=== PATIENT | female | born 1955 | race Caucasian/White ===

== ENCOUNTER 2021-02-07 11:31 | Outpatient (REF) | payer OTHER, SELFPAY ==
[2021-02-07 12:49] LABS: MANUAL DIFF FLAG NO
[2021-02-07 12:51] LABS: Basophils Percent Auto 0.5 % (0-2); Eosinophils Absolute Auto 0.1 X10*3/uL (0.0-0.4); Eosinophils Percent Auto 1.5 % (0-4); Hematocrit 39.7 % (37-47); Hemoglobin 13.7 g/dl (12.0-16.0); Imm Gran Abs Auto 0.01 X10*3/uL (0.00-0.03); Imm Gran Pct Auto 0.3 % (0.0-0.4); Lymphocytes Absolute Auto 1.4 X10*3/uL (1.2-4.9); Lymphocytes Percent Auto 37.1 % (20-40); Mean Corpuscular HGB Conc 34.5 g/dl (31.0-35.0); Mean Corpuscular Hemoglobin 33.2 pg (27.0-33.0); Mean Corpuscular Volume 96.1 fL (80-98); Mean Platelet Volume 10.8 fL (9.4-12.3); Monocytes Absolute Auto 0.3 X10*3/uL (0.1-1.2); Monocytes Percent Auto 7.7 % (2-11); Neutrophils Absolute Auto 2.1 X10*3/uL (2.0-8.3); Neutrophils Percent Auto 52.9 % (45-73); Platelet Count 185 X10*3/uL (160-400); Red Blood Count 4.13 X10*6/uL (4.20-5.50); White Blood Count 3.9 X10*3/uL (4.8-10.8)
[2021-02-07 13:40] LABS: Alanine Aminotransferase 20 U/L (0-31); Albumin Level 4.3 g/dL (3.5-5.0); Alkaline Phosphatase 72 U/L (39-117); Amylase 72 U/L (28-100); Anion Gap 11 (12-20); Aspartate Amino Transferase 28 U/L (5-31); Bilirubin Direct 0.3 mg/dL (0.0-0.5); Bilirubin Total 0.8 mg/dL (0.0-1.0); Blood Urea Nitrogen 9 mg/dL (9-16); C Reactive Protein 0.03 mg/dL (< or = 0.50); Calcium 9.2 mg/dL (8.4-10.2); Carbon Dioxide 25 mmol/L (22-29); Chloride 106 mmol/L (96-108); Estimated Glomerular Filt Rate > 60; Glucose Fasting 93 mg/dL (60-99); Lipase 29 U/L (8-78); Potassium 4.1 mmol/L (3.3-5.1); Sodium 138 mmol/L (135-145); Total Protein 6.2 g/dL (6.5-8.0)
[2021-02-07 14:19] LABS: Erythrocyte Sedimentation Rate 2 MM/HR (0-20)
[2021-02-07 18:00] LABS: Gamma Glutamyl Transpeptidase 23 U/L (7-33)
== END 2021-02-07 11:32 | disposition home or self-care (01) ==
LOC: HO.MANLDS 11:31
PROVIDERS: PCP Physician Assistant; Visit Provider Physician Assistant
DX: R10.0 Acute abdomen (principal)
CPT/HCPCS: 36415; 80053; 80076; 82150; 82248; 82977; 83690; 85025; 85652; 86140

== ENCOUNTER 2021-05-02 12:13 | Outpatient (REF) | payer OTHER, SELFPAY ==
[2021-05-02 18:41] LABS: Cholesterol 206 mg/dL; HDL Cholesterol 73 mg/dL; LDL Cholesterol Calculated 121 mg/dl; Triglycerides 62 mg/dL
[2021-05-02 18:49] LABS: Estimated Average Glucose 105 mg/dL; Hemoglobin A1c % 5.3 %
[2021-05-02 19:01] LABS: Free T4 (Free Thyroxine) 1.03 ng/dL (0.71-1.85); Thyroid Stimulating Hormone 1.22 uIU/mL (0.32-4.0)
== END 2021-05-02 12:14 | disposition home or self-care (01) ==
LOC: HO.MANLDS 12:13
PROVIDERS: PCP Physician Assistant; Visit Provider Physician Assistant
DX: Z00.00 Encounter for general adult medical examination without abnormal findings (principal)
CPT/HCPCS: 36415; 80061; 83036; 84439; 84443

== ENCOUNTER → 2021-09-23 08:47 | Outpatient (BNVA) | payer OTHER, SELFPAY | PROVIDERS: PCP Physician Assistant; Visit Provider Nurse Practitioner Family | DX: Z13.89 Encounter for screening for other disorder (principal) ==

== ENCOUNTER 2024-03-03 13:05 | Outpatient (REF) | payer OTHER, SELFPAY ==
[2024-03-03 13:18] LABS: Appearance Urine Clear; Color Urine Yellow; Glucose Urine UA Negative (Negative); Leukocyte Esterase Urine Negative (Negative); Nitrite Urine Negative (Negative); Specific Gravity - Urine <= 1.005 (1.005-1.025); Urine Blood Negative (Negative); Urine Ketones Negative (Negative); Urine Protein Negative (Neg-Trace)
[2024-03-03 13:24] LABS: Bacteria Urine None Seen (None Seen); Hyaline Casts Urine 0-2 /LPF (0-2); RBC Urine 0-2 /HPF (0-2); Squamous Epithelial Cell Urine 0-2 /HPF (0-2); WBC Urine 0-5 /HPF (0-5)
== END 2024-03-03 13:06 | disposition home or self-care (01) ==
LOC: HO.LNP 13:05
PROVIDERS: Visit Provider Physician Assistant
DX: N39.0 Urinary tract infection, site not specified (principal)
CPT/HCPCS: 81001

== ENCOUNTER 2025-03-07 12:20 | Outpatient (REF) | payer MEDICARE, OTHER, SELFPAY ==
--- OUTSIDE RECORDS SUMMARY | 2025-03-07 15:38 | XMS_ITS | Encounter Summary ---
Author Organization [facility] Address [address] [place] [address] Phone Care Team Providers Care Lockstitch Binder Name Role Phone David Seymour DO Unavailable Caro Sandoval GASTROENTEROLOGY NURSE Unavailable [phone] Renee Mercedes MD Unavailable [phone] David Seymour DO Primary Care Provider [phone] Encounter Details Date Type Department Care Team (Late st Contact Info) Description 06/14/2024 Procedure Pass [facility], [address] [address] Social History Tobacco Use Types Packs/Day Years Used Date Smoking Tobacco: Never Smokeless Tobacco: Never Alcohol Use Standard Drinks/Week Comments Not Currently 0 (1 standard drink = 0.6 oz pur e alcohol) weekly Education Answer Date Recorded Are you interested in more education? Not on mai e 09/18/2022 Are you concerned about learning? Not on file 09/18/2022 No 09/18/2022 No 09/18/2022 Digital Access Answer Date Recorded No 10/17/2022 No 10/17/2022 Reliable internet access at home? Not on file 10/17/2022 Device with a working camera? Not on file Comments No Sex and Gender Information Value Date Recorded Sex Assigned at Not on file Legal Sex Female 9:51 PM EDT Gender Identity Not on file Sexual Orientation Not on file documented as of this encounter Plan of Treatment Upcoming Encounters Date Type Department Care Team (Late st Contact Info) Description 04/30/2025 2:00 PM EST Office Visit [facility] Medical [facility] Plastic Surgery [address] [place] [address] Douglas Reyes MD [address] [place] [address] documented as of this encounter Visit Diagnoses Not on filedocumented in this encounter Care Teams Lockstitch Binder Relationship Specialty Start Date End Date David Seymour DO PCP - General Internal Medicine 04/06/17 David Seymour DO Historical LMR Provider 03/13/17 Caro Sandoval NP [address] [place] [address] Historical LMR Provider 03/13/17 Renee Mercedes MD [address] [place] [address] Historical LMR Provider 03/13/17 documented as of this encounter Additional Source Comments The information contained in this document represents components of the legal health record. It is not the complete legal health record.[facility]
--- OUTSIDE RECORDS SUMMARY | 2025-03-07 15:38 | XMS_ITS | Encounter Summary ---
Author Organization [facility] Address [address] [facility] [address] [place] [address] Phone Care Team Providers Care Lard Renderer Name Role Phone David Seymour DO Unavailable Caro Sandoval SOIL FERTILITY SPECIALIST Unavailable [phone] Mikey Leong MD Unavailable [phone] Renee Mercedes MD Unavailable [phone] Aidee Valladares SOIL FERTILITY SPECIALIST Unavailable [phone] Arnaldo Dillon MD Unavailable Anahi Persaud RD Unavailable [email or web address] Ana Cristina Parmar MD Unavailable [phone] Philip Stewart MD Unavailable [phone] David Seymour DO Primary Care Provider [phone] Encounter Details Date Type Department Care Team (Latest Contact Info) Description 06/29/2019 Transcribe Orders Virtual Department 30 [place] [address] Simin Kimble PA-C [address] [place], [place] [id number] Dyspnea, unspecified type (Primary Dx) Social History Tobacco Use Types Packs/Day Years Used Date Smoking Tobacco: Never Smokeless Tobacco: Never Alcohol Use Standard Drinks/Week Comments Yes 4 (1 standard drink = 0.6 oz pur e alcohol) weekly Comments No Sex and Gender Information Value Date Recorded Sex Assigned at Not on file Legal Sex Female 9:51 PM EDT Gender Identity Not on file Sexual Orientation Not on file documented as of this encounter Plan of Treatment Upcoming Encounters Date Type Department Care Team (Late st Contact Info) Description 04/30/2025 2:00 PM EST Office Visit [facility] Plastic Surgery [address] [place] [address] Douglas Reyes MD [address] [place] [address] [email or web address] documented as of this encounter Results * Pulmonary Function Test Reason for Exam: Dyspnea/Shortness of Breath; Type of PFT Test: Spirometry with bronchodilator, Lung Volumes, DLCO; Performing Location: [facility] (01/01/2020 1:56 PM EDT) FEV1 FVC FEV1/FVC TLC DLCO Anatomical Region Laterality Modality Other Narrative 01/01/2020 1:56 PM EDT PULMONARY FUNCTION STUDIES Full pulmonary function studies were performed on this 64 y.o. year-old female for evaluation of dyspnea. Review of the medical record reveals that the patient is a past smoker. Prior pulmonary function studies are not available for comparison. SPIROMETRY: The FEV1 is normal at 2.95 L or 133% predicted. The FVC is normal at 3.90 L or 129% predicted. The FEV1/FVC ratio is normal. After the administration of a bronchodilator agent, there is no significant change. FLOW-VOLUME LOOPS: Evaluation of the flow-volume loops reveals normal morphology of both the inspiratory and expiratory limbs with no significant difference when comparing the tracings performed pre- and post-bronchodilator. LUNG VOLUME MEASUREMENTS BY PLETHYSMOGRAPHY: The total lung capacity is normal at 4.88 L or 129% predicted. DIFFUSION CAPACITY: The diffusion capacity is elevated at 18.4 mL/mmHg sec or 142% predicted. COMPARISON TO PRIOR STUDIES: There are no prior studies for comparison. Resting oxygen saturation is 97% on room air. IMPRESSION: Normal spirometry and normal total lung capacity. There is an elevated diffusion capacity which can be seen in polycythemia, left to right shunting asthma or obesity. Clinical correlation is recommended. There are no previous PFT's for comparison. August Lamin ARROYO PFT ORDERABLES Final Result documented in this encounter Visit Diagnoses Diagnosis Dyspnea, unspecified type- Primary Dyspnea, unspecified type documented in this encounter Care Teams Lard Renderer Relationship Specialty Start Date End Date David Seymour DO PCP - General Internal Medicine 04/06/17 David Seymour DO Historical LMR Provider 03/13/17 Caro Sandoval NP [address] [place] [address] [email or web address] Historical LMR Provider 03/13/17 Mikey Leong MD [address] [place] [address] [email or web address] Historical LMR Provider 03/13/17 05/31/21 Renee Mercedes MD [address] [place] [address] [address] [place] [address] Historical LMR Provider 03/13/17 Aidee Valladares SOIL FERTILITY SPECIALIST [address] [place] [address] [email or web address] Historical LMR Provider 03/13/17 2 Arnaldo Dillon MD [address] [facility], 2nd [place] [address] Historical LMR Provider 03/13/17 05/31/21 Anahi Persaud, RDCS [email or web address] Historical LMR Provider 03/13/17 05/31/21 Ana Cristina Parmar MD [address] [place] [phone] Historical LMR Provider 03/13/17 2 Philip Stewart MD [address] [place] [address] Historical LMR Provider 03/13/17 2 documented as of this encounter Additional Source Comments The information contained in this document represents components of the legal health record. It is not the complete legal health record.[facility]
--- OUTSIDE RECORDS SUMMARY | 2025-03-07 15:38 | XMS_ITS | Encounter Summary ---
Author Organization [facility] Address [address] [employer] [facility] [address] [place] [address] Phone Care Team Providers Care Fisher Sponge Hooking Name Role Phone David Seymour DO Unavailable Caro Sandoval TAKE OUT WAITER/WAITRESS Unavailable [phone] Mikey Leong MD Unavailable [phone] Renee Mercedes MD Unavailable [phone] Aidee Valladares TAKE OUT WAITER/WAITRESS Unavailable Arnaldo Dillon MD Unavailable Anahi Persaud RD Unavailable [email or web address] Ana Cristina Parmar MD Unavailable [phone] Philip Stewart MD Unavailable [phone] David Seymour DO Primary Care Provider [phone] Encounter Details Date Type Department Care Team (Late st Contact Info) Description 03/21/2020 Procedure Pass [facility], [address] [address] Social History Tobacco Use Types Packs/Day Years [...] Description 04/30/2025 2:00 PM EST Office Visit [facility] Plastic Surgery [address] [place] [address] Douglas Reyes MD [address] [place] [address] [email or web address] documented as of this encounter Visit Diagnoses Not on filedocumented in this encounter Care Teams Fisher Sponge Hooking Relationship Specialty Start Date End Date David Seyomur DO PCP - General Internal Medicine 04/06/17 David Seymour DO Historical LMR Provider 03/13/17 Caro Sandoval, TAKE OUT WAITER/WAITRESS [address] [place] [address] [email or web address] Historical LMR Provider 03/13/17 Mikey Leong MD [address] [place] [address] [email or web address] Historical LMR Provider 03/13/17 05/31/21 Renee Mercedes MD [address] [place] [address] Historical LMR Provider 03/13/17 Aidee Valladares, TAKE OUT WAITER/WAITRESS [address] [place] [address] [email or web address] Historical LMR Provider 03/13/17 2 Arnaldo Dillon MD [address] [facility], [address] [place] [address] [email or web address] Historical LMR Provider 03/13/17 05/31/21 Anahi Persaud, RDCS [email or web address] Historical LMR Provider 03/13/17 05/31/21 Ana Cristina Parmar MD [address], [place] [address] Historical LMR Provider 03/13/17 2 Philip Stewart MD 61 [place] [address] Historical LMR Provider 03/13/17 2 documented as of this encounter Additional Source Comments The information contained in this document represents components of the legal health record. It is not the complete legal health record.[facility]
--- OUTSIDE RECORDS SUMMARY | 2025-03-07 15:38 | XMS_ITS | Encounter Summary ---
Author Organization [facility] Address [address] [facility] [address] [place] [address] Phone Care Team Providers Care Distribution Engineer Name Role Phone David Seymour DO Unavailable Caro Sandoval BOWSTRING MAKER Unavailable [phone] Mikey Leong MD Unavailable [phone] Renee Mercedes MD Unavailable [phone] Aidee Valladares BOWSTRING MAKER Unavailable [phone] Arnaldo Dillon MD Unavailable [phone] Unavailable [email or web address] Ana Cristina Parmar MD Unavailable [phone] Philip Stewart MD Unavailable [phone] David Seymour DO Primary Care Provider [phone] Encounter Details Date Type Department Care Team (Latest Contact Info) Description 06/29/2019 Transcribe Orders Virtual Department 30 [place] [address] Simin Kimble PA-C [address] [place], [place] [phone] Dyspnea, unspecified type (Primary Dx) Social History [...] Description 04/30/2025 2:00 PM EST Office Visit [facility] Plastic Surgery [address] [place] [address] Douglas Reyes MD [address] [place] [address], [address] [address] documented as of this encounter Results * XR CHEST PA AND LATERAL 2 VIEWS (06/29/2019 4:50 PM EST) Anatomical Region Laterality Modality Chest Radiographic Luz ging 06/29/2019 4:54 PM EST Impressions 06/29/2019 4:56 PM EST No acute cardiopulmonary process. POS [id number] Narrative 06/29/2019 4:56 PM EST XR CHEST PA AND LATERAL 2 VIEWS HISTORY: N/A no indication applies (use free text below) DYSPNEA COMPARISON: None FINDINGS: Lines and Tubes: None. Heart and mediastinum:The cardiac silhouette is normal in size. No mediastinal or hilar enlargement. Lungs and Pleural: The lungs are clear. No pneumothorax or pleural effusion. Bones and Soft Tissues: No acute abnormality. Procedure Note Shamir Emery MD - 06/29/2019 XR CHEST PA AND LATERAL 2 VIEWS HISTORY: N/A no indication applies (use free text below) DYSPNEA COMPARISON: None FINDINGS: Lines and Tubes: None. Heart and mediastinum:The cardiac silhouette is normal in size. Nomediastinal or hilar enlargement. Lungs and Pleural: The lungs are clear. No pneumothorax or pleuraleffusion. Bones and Soft Tissues: No acute abnormality. IMPRESSION: No acute cardiopulmonary process. POS [id number] Simin Lamin ARROYO IMG XR CHEST Final Result documented in this encounter Visit Diagnoses Diagnosis Dyspnea, unspecified type- Primary Dyspnea, unspecified type documented in this encounter Care Teams Distribution Engineer Relationship Specialty Start Date End Date Jose LuisDavid [email or web address] PCP - General Internal Medicine 04/06/17 David Seymour DO [email or web address] Historical LMR Provider 03/13/17 Caro Sandoval, BOWSTRING MAKER [address] [place] [address] [email or web address] Historical LMR Provider 03/13/17 Mikey Leong MD [address] [place] [address] [email or web address] Historical LMR Provider 03/13/17 05/31/21 Renee Mercedes MD [address] [place] [address] [email or web address] Historical LMR Provider 03/13/17 Aidee Valladares, BOWSTRING MAKER [address] [place] [address] [email or web address] Historical LMR Provider 03/13/17 2 Arnaldo Dillon MD [address] [place] [address], [address] [place] [address] [email or web address] Historical LMR Provider 03/13/17 05/31/21 Anahi Persaud, RDCS [email or web address] Historical LMR Provider 03/13/17 05/31/21 Ana Cristina Parmar MD [address] [place] [address] Historical LMR Provider 03/13/17 2 Philip Stewart MD [address] [place] [address] Historical LMR Provider 03/13/17 2 documented as of this encounter Additional Source Comments The information contained in this document represents components of the legal health record. It is not the complete legal health record.[facility]
--- OUTSIDE RECORDS SUMMARY | 2025-03-07 15:39 | XMS_ITS | Encounter Summary ---
Author Organization [facility] Address [address] [place] [address] Phone Care Team Providers Care Latin Professor Name Role Phone David Seymour DO Unavailable Caro Sandoval PROGRAMMER ENGINEERING AND SCIENTIFIC Unavailable [phone] Renee Mercedes MD Unavailable [phone] David Seymour DO Primary Care Provider [phone] Encounter Details Date Type Department Care Team (Late st Contact Info) Description 06/09/2023 Procedure Pass [facility], [address] [address] Social History Tobacco Use Types Packs/Day Years [...] Description 04/30/2025 2:00 PM EST Office Visit [facility] Plastic Surgery [address] [place] [address] Douglas Reyes MD [address] [place] [address] documented as of this encounter Visit Diagnoses Not on filedocumented in this encounter Care Teams Latin Professor Relationship Specialty Start Date End Date David Seymour DO PCP - General Internal Medicine 04/06/17 David Seymour DO Historical LMR Provider 03/13/17 Caro Sandoval NP [address] [place] [address] Historical LMR Provider 03/13/17 Renee Mercedes MD [address] [place] [address] Historical LMR Provider 03/13/17 documented as of this encounter Additional Source Comments The information contained in this document represents components of the legal health record. It is not the complete legal health record.[facility]
--- OUTSIDE RECORDS SUMMARY | 2025-03-07 15:39 | XMS_ITS | Encounter Summary ---
Author Organization [facility] Address [address] [place] [address] Phone Care Team Providers Care Bag Sealer Name Role Phone David Seymour DO Unavailable Caro Sandoval DATAPOWER CONSULTANT Unavailable [phone] Renee Mercedes MD Unavailable [phone] David Seymour DO Primary Care Provider [phone] Reason for Referral * MRI/CAT Scan - Closed Specialty Diagnoses / Procedures Referred By Contac t Referred To Contact Radiology Diagnoses Right knee pain, unspecified chronicity Procedures MRI Knee (Right) CHG MRI LOWER EXTREM JT, W/O CONTRAST Joana Bradshaw PA [address] [facility] [place] [address] [place] [address] Phone: tel: fax: Referral ID Status Reason Start Date Expiration Date Visits Re quested Visits Authorized [id number] Closed 03/08/2024 05/07/2024 1 1 Encounter Details Date Type Department Care Team (Latest Contact Info) Description 03/10/2024 Transcribe Orders Virtual Department [address] [place] [address] Joana Bradshaw PA [address] [facility] [place] [address] [place] [address] Right knee pain, unspecified chronicity (Primary Dx) Social History Tobacco Use Types [...] Description 04/30/2025 2:00 PM EST Office Visit [facility] Plastic Surgery [address] [place] [address] Douglas Reyes MD [address] [place] [address] [email or web address] documented as of this encounter Results * MRI KNEE WITHOUT CONTRAST (RIGHT) (04/23/2024 10:41 AM EST) Anatomical Region Laterality Modality Knee Right Magnetic Resonan ce 04/24/2024 3:09 PM EST Impressions 04/24/2024 3:12 PM EST 1. Mild osteoarthritis, including mild patellofemoral chondromalacia, most notable within the lower central trochlea with mild subchondral marrow edema. 2. No evidence of acute fracture or surfacing meniscal tear. 3. ACL grossly intact but with a small adjacent para cruciate ganglion cyst. Narrative 04/24/2024 3:12 PM EST MRI KNEE WITHOUT CONTRAST (RIGHT) Referring clinician's provided indication for this examination in Epic: Outside Radiology Order; right knee pain HISTORY: Right knee pain. COMPARISONS: None. TECHNIQUE: Multiplanar, multisequence imaging was performed through the right knee, without IV or intra-articular gadolinium. FINDINGS: LIGAMENTS: ACL grossly intact but there is mild intrasubstance signal abnormality and a small adjacent pericruciate ganglion cyst. PCL intact. Cruciate ligaments appear intact. The extensor mechanism is intact. MENISCI: The medial meniscus is intact. The lateral meniscus is intact. BONE MARROW: No fracture. JOINT/CARTILAGE: No significant joint effusion. Mild diffuse cartilage thinning in all compartments with some mild areas of partial thickness cartilage loss including most notably within the patella and lower trochlea. PERIARTICULAR SOFT TISSUES: Otherwise unremarkable. Procedure Note Milo Mendiola MD - 04/24/2024 MRI KNEE WITHOUT CONTRAST (RIGHT) Referring clinician's provided indication for this examination in Epic:Outside Radiology Order; right knee pain HISTORY: Right knee pain. COMPARISONS: None. TECHNIQUE: Multiplanar, multisequence imaging was performed through theright knee, without IV or intra-articular gadolinium. FINDINGS: LIGAMENTS: ACL grossly intact but there is mild intrasubstance signalabnormality and a small adjacent pericruciate ganglion cyst. PCL intact.Cruciate ligaments appear intact. The extensor mechanism is intact. MENISCI: The medial meniscus is intact. The lateral meniscus is intact. BONE MARROW: No fracture. JOINT/CARTILAGE: No significant joint effusion. Mild diffuse cartilagethinning in all compartments with some mild areas of partial thicknesscartilage loss including most notably within the patella and lowertrochlea. PERIARTICULAR SOFT TISSUES: Otherwise unremarkable. IMPRESSION: 1. Mild osteoarthritis, including mild patellofemoral chondromalacia,most notable within the lower central trochlea with mild subchondralmarrow edema. 2. No evidence of acute fracture or surfacing meniscal tear. 3. ACL grossly intact but with a small adjacent para cruciate ganglioncyst. Joana YAP IMG MR EXTREMITY Final Resu lt documented in this encounter Visit Diagnoses Diagnosis Right knee pain, unspecified chronicity- Primary Right knee pain, unspecified chronicity documented in this encounter Care Teams Bag Sealer Relationship Specialty Start Date End Date David Seymour DO PCP - General Internal Medicine 04/06/17 David Seymour DO Historical LMR Provider 03/13/17 Caro Sandoval NP [address] [place] [address] [email or web address] Historical LMR Provider 03/13/17 Renee Mercedes MD [address] [place] [address] [email or web address] Historical LMR Provider 03/13/17 documented as of this encounter Additional Source Comments The information contained in this document represents components of the legal health record. It is not the complete legal health record.[facility]
--- OUTSIDE RECORDS SUMMARY | 2025-03-07 15:39 | XMS_ITS | Encounter Summary ---
Author Organization [facility] Address [address] [address] Phone Care Team Providers Care Bed Rubber Name Role Phone David Seymour DO Unavailable Caro Sandoval LANDMAN Unavailable [phone] Mikey Leong MD Unavailable [phone] Renee Mercedes MD Unavailable [phone] Aidee Valladares LANDMAN Unavailable Arnaldo Dillon MD Unavailable Anahi Persaud RDCS Unavailable [email or web address] Ana Cristina Parmar MD Unavailable [phone] Philip Stewart MD Unavailable [phone] David Seymour DO Primary Care Provider [phone] Encounter Details Date Type Department Care Team (Late st Contact Info) Description 04/06/2019 Ancillary Orders Virtual Department [address] [place] [address] David Seymour DO [address] [place] [address] [email or web address] Breast screening Social History Tobacco Use Types Packs/Day Years [...] Description 04/30/2025 2:00 PM EST Office Visit [facility] Plastic Surgery [address] [place] [address] [place] Reyes MD [address] [place] [address] documented as of this encounter Results * BI MAMMOGRAM SCREENING WITH TOMOSYNTHESIS WITH CAD (BILATERAL) (05/19/2019 7:40 AM EST) Anatomical Region Laterality Modality Breast Left, Breast Right, Breast Bilateral Bila teral Mammography 05/19/2019 8:18 AM EST Impressions 05/19/2019 8:20 AM EST No mammographic evidence of malignancy. BI-RADS CATEGORY: 1 - Negative. DENSITY: There are scattered fibroglandular densities. POS - [id number] Narrative 05/19/2019 8:20 AM EST Standard digital full-field 2-D C view and two-plane tomographic imaging was performed and compared with multiple prior studies, most recently 05/18/2018, with utilization of computer-aided detection. The breasts are composed of scattered fibroglandular densities. The stromal markings are essentially unchanged in overall appearance and distribution. No dominant spiculated mass, suspicious clustered microcalcifications, or focal zone of pathologic skin thickening or retraction are noted to have arisen in the interim. Procedure Note Jacob Peters MD - 05/19/2019 Standard digital full-field 2-D C view and two-plane tomographic imagingwas performed and compared with multiple prior studies, most [email or web address]/26/2018, with utilization of computer-aided detection. The breasts are composed of scattered fibroglandular densities. Thestromal markings are essentially unchanged in overall appearance anddistribution. No dominant spiculated mass, suspicious clusteredmicrocalcifications, or focal zone of pathologic skin thickening orretraction are noted to have arisen in the interim. IMPRESSION: No mammographic evidence of malignancy. BI-RADS CATEGORY: 1 - Negative. DENSITY: There are scattered fibroglandular densities. POS - [id number] us David Seymour DO IMG MG EXAMS Final Result documented in this encounter Visit Diagnoses Diagnosis Breast screening Breast screening, unspecified Breast screening Breast screening, unspecified documented in this encounter Care Teams Bed Rubber Relationship Specialty Start Date End Date David Seymour DO [email or web address] PCP - General Internal Medicine 04/06/17 David Seymour DO Historical LMR Provider 03/13/17 Caro Sandoval LANDMAN [address] [place] [address] [email or web address] Historical LMR Provider 03/13/17 Mikey Leong MD [address] [place] [address] [email or web address] Historical LMR Provider 03/13/17 05/31/21 Renee Mercedes MD [address] [place] [email or web address] Historical LMR Provider 03/13/17 Aidee Valladares LANDMAN [address] [place] [address] [email or web address] Historical LMR Provider 03/13/17 2 Arnaldo Dillon MD [address] [facility], [address] [place] [address] [email or web address] Historical LMR Provider 03/13/17 05/31/21 Anahi Persaud, RDCS [email or web address] Historical LMR Provider 03/13/17 05/31/21 Ana Cristina Parmar MD [address] [address] Historical LMR Provider 03/13/17 2 Philip Stewart MD [address] [place] [address] Historical LMR Provider 03/13/17 2 documented as of this encounter Additional Source Comments The information contained in this document represents components of the legal health record. It is not the complete legal health record.[facility]
--- OUTSIDE RECORDS SUMMARY | 2025-03-07 15:39 | XMS_ITS | Encounter Summary ---
Author Organization [facility] Address [address] [place] [address] Phone Care Team Providers Care Silverware Buffing Machine Operator Name Role Phone David Seymour DO Unavailable Caro Sandoval PACE ANALYST Unavailable [phone] Renee Mercedes MD Unavailable [phone] David Seymour DO Primary Care Provider [phone] Encounter Details Date Type Department Care Team (Late st Contact Info) Description 03/07/2024 Procedure Pass [facility], [address] [address] Social History Tobacco Use Types Packs/Day Years [...] Description 04/30/2025 2:00 PM EST Office Visit [facility] Plastic Surgery [address] [place] [address] [place] Reyes MD [address] [place] [address] documented as of this encounter Visit Diagnoses Not on filedocumented in this encounter Care Teams Silverware Buffing Machine Operator Relationship Specialty Start Date End Date David Seymour DO PCP - General Internal Medicine 04/06/17 David Seymour DO Historical LMR Provider 03/13/17 Caro Sandoval NP [address] [place] [address] Historical LMR Provider 03/13/17 Renee Mercedes MD [address] [place] [email or web address] Historical LMR Provider 03/13/17 documented as of this encounter Additional Source Comments The information contained in this document represents components of the legal health record. It is not the complete legal health record.[facility]
--- OUTSIDE RECORDS SUMMARY | 2025-03-07 15:39 | XMS_ITS | Encounter Summary ---
Author Organization [facility] Address [address] [place] [address] Phone Care Team Providers Care Business Functional Analyst Name Role Phone Lion David Chung DO Unavailable Caro Sandoval POND SCALER Unavailable [phone] Renee Mercedes MD Unavailable [phone] David Seymour DO Primary Care Provider [phone] Encounter Details Date Type Department Care Team (Latest Contact Info) Description 11/13/2024 Transcribe Orders [facility] [address] [address] Catherine Burt PA 10 [place] [address] Abdominal pain, unspecified abdominal location (Primary Dx) Social History Tobacco Use Types [...] Description 04/30/2025 2:00 PM EST Office Visit [facility] Plastic Surgery [address] [place] [address] [place] Reyes MD [address] [place] [address] [email or web address] documented as of this encounter Results * Comprehensive metabolic panel (11/13/2024 3:47 PM EDT) SODIUM 138 133 - 146 mmol/L [facility] POTASSIUM 4.6 3.3 - 5.1 mmol/L [facility] CHLORIDE 100 96 - 108 mmol/L [facility] CO2 26 21 - 35 mmol/L [facility] BUN 17 6 - 19 mg/dL [facility] CREATININE 0.80 0.5 - 1.5 mg/dL [facility] GLUCOSE 97 70 - 99 mg/dL [facility] ALBUMIN 4.5 3.9 - 4.8 g/dL [facility] TOTAL PROTEIN 7.0 6.5 - 8.0 g/dL [facility] CALCIUM 10.1 8.4 - 10.3 mg/dL [facility] ALKALINE PHOSPHATASE 79 39 - 117 U/L [facility] TOTAL BILIRUBIN 0.6 0.0 - 1.2 mg/dL [facility] AST 31 0 - 37 U/L [facility] ALT 21 0 - 40 U/L [facility] GLOBULIN 2.5 1 - 4.8 g/dL [facility] EGFR 81 >59 mL/min/1.7 3m2 [facility] Comment:Estimated glomerular filtration rate calculated using the CKD-EPI refit equation. ANION GAP 17 10 - 20 mmol/L [facility] Blood 11/13/2024 3:47 PM EDT 11/13/2024 3:50 PM EDT us Catherine YAP LAB BLOOD ORDERABLES Final Result [facility] [address] [place] [address] documented in this encounter Visit Diagnoses Diagnosis Abdominal pain, unspecified abdominal location- Primary documented in this encounter Care Teams Business Functional Analyst Relationship Specialty Start Date End Date David Seymour DO PCP - General Internal Medicine 04/06/17 David Seymour DO Historical LMR Provider 03/13/17 Caro Sandoval NP [address] [place] [address] Historical LMR Provider 03/13/17 Renee Mercedes MD [address] [place] [address] Historical LMR Provider 03/13/17 documented as of this encounter Additional Source Comments The information contained in this document represents components of the legal health record. It is not the complete legal health record.[facility]
--- OUTSIDE RECORDS SUMMARY | 2025-03-07 15:39 | XMS_ITS | Encounter Summary ---
Author Organization [facility] Address [address] [facility] [address] [place] [address] Phone Care Team Providers Care Cafeteria Counter Attendant Name Role Phone David Seymour DO Unavailable Caro Sandoval BICYCLE SERVICE TECHNICIAN Unavailable [phone] Mikey Leong MD Unavailable [phone] Renee Mercedes MD Unavailable Aidee Valladares BICYCLE SERVICE TECHNICIAN Unavailable [phone] Arnaldo Dillon MD Unavailable [phone] Anahi Persaud RDCS Unavailable [email or web address] Ana Cristina Parmar MD Unavailable [phone] Philip Stewart MD Unavailable [phone] David Seymour DO Primary Care Provider [phone] Encounter Details Date Type Department Care Team (Late st Contact Info) Description 04/06/2017 Ancillary Orders [facility] [address] [place], [place] [phone] Renee Mercedes MD 22 [facility], [address] [place], [place] [phone] [email or web address] Visit for screening mammogram Social History Tobacco Use Types Packs/Day Years Used Date Smoking Tobacco: Never Assessed Comments Unknown Sex and Gender Information Value Date Recorded Sex Assigned at Not on file Legal Sex Female 9:51 PM EDT Gender Identity Not on file Sexual Orientation Not on file documented as of this encounter Plan of Treatment Upcoming Encounters Date Type Department Care Team (Late st Contact Info) Description 04/30/2025 2:00 PM EST Office Visit [facility] [address] [place] [address] [place] Reyes MD [address] [place] [address], [address] [address] [email or web address] documented as of this encounter Results * BI MAMMOGRAM SCREENING WITH TOMOSYNTHESIS WITH CAD (BILATERAL) (05/14/2017 7:41 AM EST) Anatomical Region Laterality Modality Breast Left, Breast Right, Breast Bilateral Bila teral Mammography 05/14/2017 8:09 AM EST Impressions 05/14/2017 8:11 AM EST No mammographic evidence of malignancy. BI-RADS CATEGORY: 1 - Negative. DENSITY: There are scattered fibroglandular densities. POS - [id number] Narrative 05/14/2017 8:11 AM EST Standard digital full-field 2-D C view and two-plane tomographic imaging was performed and compared with multiple prior studies, most recently 04/28/2016, with utilization of computer-aided detection. The breasts are composed of scattered fibroglandular densities. The stromal markings are essentially unchanged in overall appearance and distribution. No dominant spiculated mass, suspicious clustered microcalcifications, or focal zone of pathologic skin thickening or retraction are noted to have arisen in the interim. Procedure Note Jacob Peters MD - 05/14/2017 Standard digital full-field 2-D C view and two-plane tomographic imagingwas performed and compared with multiple prior studies, most [email or web address]/06/2016, with utilization of computer-aided detection. The breasts are composed of scattered fibroglandular densities. Thestromal markings are essentially unchanged in overall appearance anddistribution. No dominant spiculated mass, suspicious clusteredmicrocalcifications, or focal zone of pathologic skin thickening orretraction are noted to have arisen in the interim. IMPRESSION: No mammographic evidence of malignancy. BI-RADS CATEGORY: 1 - Negative. DENSITY: There are scattered fibroglandular densities. POS - [id number] us Renee Mercedes MD IMG MG EXAMS Final Result documented in this encounter Visit Diagnoses Diagnosis Visit for screening mammogram Visit for screening mammogram documented in this encounter Care Teams Cafeteria Counter Attendant Relationship Specialty Start Date End Date David Seymour DO PCP - General Internal Medicine 04/06/17 David Seymour DO Historical LMR Provider 03/13/17 Caro Sandoval NP [address] [place] [address] [email or web address] Historical LMR Provider 03/13/17 Mikey Leong MD [address] [place] [address] [email or web address] Historical LMR Provider 03/13/17 05/31/21 Renee Mercedes MD [address] [place] [address] Historical LMR Provider 03/13/17 Aidee Valladares NP [address] [place] [address] [email or web address] Historical LMR Provider 03/13/17 2 Arnaldo Dillon MD 22 [facility], [address] [place] [address] Historical LMR Provider 03/13/17 05/31/21 Anahi Persaud, RDCS Historical LMR Provider 03/13/17 05/31/21 Ana Cristina Parmar MD [address], [place] Historical LMR Provider 03/13/17 2 Philip [place] MD [address] [place] [address] Historical LMR Provider 03/13/17 2 documented as of this encounter Additional Source Comments The information contained in this document represents components of the legal health record. It is not the complete legal health record.[facility]
--- OUTSIDE RECORDS SUMMARY | 2025-03-07 15:39 | XMS_ITS | Encounter Summary ---
Author Organization [facility] Address [address] [place] [address] Phone Care Team Providers Care Shingle Packer Name Role Phone David Seymour DO Unavailable Caro Sandoval BLOCK INSPECTOR Unavailable [phone] Renee Mercedes MD Unavailable [phone] David Seymour DO Primary Care Provider [phone] Encounter Details Date Type Department Care Team (Latest Contact Info) Description 08/24/2023 Transcribe Orders [facility] Laboratory [address] 2nd [place] [address] Joana [place] PA 6 [facility] [place] [address] Routine general medical examination at a health care facility (Primary Dx) Social History Tobacco Use Types [...] Description 04/30/2025 2:00 PM EST Office Visit [facility] Plastic Surgery [address] [place] [address] [place] Reyes MD [address] [place] [address] [email or web address] documented as of this encounter Results * Free T4 (08/24/2023 7:45 AM EDT) FREE T4 1.2 0.9 - 1.7 ng/dL [facility] Blood 08/24/2023 7:45 AM EDT 08/24/2023 7:51 AM EDT us Joana YAP LAB BLOOD ORDERABLES Final Result [address] [address] * Hemoglobin A1c (08/24/2023 7:45 AM EDT) HEMOGLOBIN A1C 5.2 4.3 - 5.8 % [facility] Blood 08/24/2023 7:45 AM EDT 08/24/2023 7:51 AM EDT Joana YAP LAB BLOOD ORDERABLES Final Result [address] [address] * TSH (08/24/2023 7:45 AM EDT) TSH 1.78 0.27 - 4.20 uIU/mL [facility] Blood 08/24/2023 7:45 AM EDT 08/24/2023 7:51 AM EDT Joana YAP LAB BLOOD ORDERABLES Final Result Performing Organization Address City/[facility]/ZIP Co de Phone Number [address] [address] * 25-OH vitamin D (08/24/2023 7:45 AM EDT) 25 [place] VIT D (TOTAL) 44 30 - 60 ng/mL [facility] Blood 08/24/2023 7:45 AM EDT 08/24/2023 7:51 AM EDT Joana YAP LAB BLOOD ORDERABLES Final Result Performing Organization Address [facility] de Phone Number [address] [address] * (ABNORMAL) Lipid panel (08/24/2023 7:45 AM EDT) HDL 73 mg/dL [facility] Comment: Interpretation <40 mg/dL: Low HDL cholesterol (major risk factor for CHD) Greater than or equal to 60 mg/dL: High HDL cholesterol ( negative risk factor for CHD) HDL - cholesterol is affected by a number of factors, e.g. smoking, excerise, hormones, sex and age. CHOLESTEROL 188 0 - 240 mg/dL [facility] TRIGLYCERIDES 66 30 - 160 mg/dL [facility] LDL 102 50 - 129 mg/dL [facility] Comment: LDL levels in terms of risk for coronary heart disease: <100 mg/dL: Optimal 100-129 mg/dL: Near or above optimal 130-159 mg/dL: Borderline high 160-189 mg/dL: High >190 mg/dL: Very High CARDIAC RISK RATIO 2.6(L) 3.3 - 4.4 C [facility] Blood 08/24/2023 7:45 AM EDT 08/24/2023 7:51 AM EDT Joana YAP LAB BLOOD ORDERABLES Final Result [facility] [address] [place] [address] * (ABNORMAL) CBC and differential (08/24/2023 7:45 AM EDT) WBC 2.44(L) 4.00 - 11.00 K/uL [facility] RBC 4.42 3.72 - 5.30 M/uL [facility] HGB 14.4 11.4 - 15.9 g/dL [facility] HCT 42.8 34.2 - 46.8 % [facility] PLT 202 140 - 430 K/uL [facility] MCV 96.8 78.0 - 97.0 fL [facility] MCH 32.6 25.0 - 33.0 pg [facility] MCHC 33.6 32.0 - 36.0 g/dL [facility] RDW 12.0 11.0 - 16.0 % [facility] MPV 10.6 8.4 - 12.8 fl [facility] DIFF METHOD Auto [facility] NEUTS 45.5 43.0 - 75.0 % [facility] LYMPHS 41.4 18.2 - 47.4 % [facility] MONOS 9.4 4.00 - 11.00 % [facility] EOS 2.5 0.0 - 8.0 % [facility] BASOS 1.2 0.0 - 2.0 % [facility] Granulocytes, immature (%) 0.0 0.0 - 0.9 % [facility] ABSOLUTE NEUTS 1.11(L) 1.80 - 7.70 K/uL [facility] ABSOLUTE LYMPHS 1.01 1.00 - 3.10 K/uL [facility] ABSOLUTE MONOS 0.23 0.20 - 0.80 K/uL [facility] ABSOLUTE EOS 0.06 0.00 - 0.80 K/uL [facility] ABSOLUTE BASOS 0.03 0.00 - 0.09 K/uL [facility] Granulocytes, immature 0.00 0.00 - 0.05 K/uL [facility] Blood 08/24/2023 7:45 AM EDT 08/24/2023 7:51 AM EDT us Joana YAP LAB BLOOD ORDERABLES Final Result [address] [address] * (ABNORMAL) Comprehensive metabolic panel (08/24/2023 7:45 AM EDT) SODIUM 139 133 - 146 mmol/L [facility] POTASSIUM 4.3 3.3 - 5.1 mmol/L [facility] CHLORIDE 103 96 - 108 mmol/L [facility] CO2 26 21 - 35 mmol/L [facility] BUN 18 6 - 19 mg/dL [facility] CREATININE 0.80 0.5 - 1.5 mg/dL [facility] GLUCOSE 95 70 - 99 mg/dL [facility] ALBUMIN 4.5 3.9 - 4.8 g/dL [facility] TOTAL PROTEIN 6.7 6.5 - 8.0 g/dL [facility] CALCIUM 9.7 8.4 - 10.3 mg/dL [facility] ALKALINE PHOSPHATASE 76 39 - 117 U/L [facility] TOTAL BILIRUBIN 0.6 0.0 - 1.2 mg/dL [facility] AST 48(H) 0 - 37 U/L [facility] ALT 74(H) 0 - 40 U/L [facility] GLOBULIN 2.2 1 - 4.8 g/dL [facility] EGFR 82 >59 mL/min/1.7 3m2 [facility] Comment:Estimated glomerular filtration rate calculated using the CKD-EPI refit equation. ANION GAP 14 10 - 20 mmol/L [facility] Blood 08/24/2023 7:45 AM EDT 08/24/2023 7:51 AM EDT us Joana YAP LAB BLOOD ORDERABLES Final Result Performing Organization Address City/[facility]/ZIP Co de Phone Number [address] [address] documented in this encounter Visit Diagnoses Diagnosis Routine general medical examination at a health care facility- Primary documented in this encounter Care Teams Shingle Packer Relationship Specialty Start Date End Date David Seymour PCP - General Internal Medicine 04/06/17 Lion David ChungDO Historical LMR Provider 03/13/17 Caro Sandoval NP [address] [place] [address] Historical LMR Provider 03/13/17 Renee Mercedes MD [address] [place] [address] Historical LMR Provider 03/13/17 documented as of this encounter Additional Source Comments The information contained in this document represents components of the legal health record. It is not the complete legal health record.[facility]
--- OUTSIDE RECORDS SUMMARY | 2025-03-07 15:39 | XMS_ITS | Encounter Summary ---
Author Organization [facility] Address [address] [place] [address] Phone Care Team Providers Care Taste Tester Name Role Phone David Seymour DO Unavailable Caro Sandoval AUTOMOTIVE SALES EXECUTIVE Unavailable [phone] Renee Mercedes MD Unavailable [phone] David Seymour DO Primary Care Provider [phone] Encounter Details Date Type Department Care Team (Latest Contact Info) Description 09/03/2023 Transcribe Orders Virtual Department [address] [place] [address] Joana Bradshaw PA [address] [place] [address] [place] [address] Elevated LFTs (Primary Dx) Social History Tobacco Use Types [...] 04/30/2025 2:00 PM EST Office Visit [facility] [address] [place] [address] Douglas Reyes MD [address] [place] [address], [address] [address] [email or web address] documented as of this encounter Results * US ABDOMEN LIMITED RIGHT UPPER QUADRANT (09/10/2023 8:24 AM EDT) Anatomical Region Laterality Modality Abdomen Ultrasound 09/10/2023 11:4 5 AM EDT Impressions 09/10/2023 4:56 PM EDT 1. No acute abnormality demonstrated sonographically to explain etiology of patient's symptoms. 2. Subtle 1.1 cm hypoechoic lesion at the hepatic dome on the right, incompletely characterized sonographically and not clearly demonstrated on the prior study. MRI recommended for further evaluation. Narrative 09/10/2023 4:56 PM EDT US ABDOMEN LIMITED RIGHT UPPER QUADRANT Referring clinician's provided indication for this examination in [facility] [place] [facility]: Outside Radiology Order; elevated lft's TECHNIQUE: US Abdominal limited right upper quadrant. COMPARISON: Sonography 10/09/2022 FINDINGS: Liver: Hepatic echogenicity is within normal limits. There is a subtle 1.1 x 1.0 cm hypoechoic lesion at the hepatic dome on the right, incompletely characterized sonographically. Main Portal Vein: Patent with normal direction of flow. Gallbladder: No gallstones or gallbladder wall thickening. Martini's Sign: Negative. Biliary: No intrahepatic or extrahepatic biliary ductal dilatation. The common bile duct measures 4 mm. Right Kidney: No stones or hydronephrosis. Procedure Note Shira Smith MD - 09/10/2023 US ABDOMEN LIMITED RIGHT UPPER QUADRANT Referring clinician's provided indication for this examination in [facility] [place] [facility]:Outside Radiology Order; elevated lft's TECHNIQUE: US Abdominal limited right upper quadrant. COMPARISON: Sonography 10/09/2022 FINDINGS: Liver: Hepatic echogenicity is within normal limits. There is a subtle 1.1x 1.0 cm hypoechoic lesion at the hepatic dome on the right, incompletelycharacterized sonographically. Main Portal Vein: Patent with normal direction of flow. Gallbladder: No gallstones or gallbladder wall thickening. Amrtini's Sign: Negative. Biliary: No intrahepatic or extrahepatic biliary ductal dilatation. The common bile duct measures 4 mm. Right Kidney: No stones or hydronephrosis. IMPRESSION: 1. No acute abnormality demonstrated sonographically to explain etiologyof patient's symptoms. 2. Subtle 1.1 cm hypoechoic lesion at the hepatic dome on the right,incompletely characterized sonographically and not clearly demonstrated onthe prior study. MRI recommended for further evaluation. us Joana Vazquez YAP IMG US ABDOMEN Final Resul t documented in this encounter Visit Diagnoses Diagnosis Elevated LFTs- Primary Other abnormal blood chemistry Elevated LFTs Other abnormal blood chemistry documented in this encounter Care Teams Taste Tester Relationship Specialty Start Date End Date David Seymour DO PCP - General Internal Medicine 04/06/17 David Seymour DO Historical LMR Provider 03/13/17 Caro Sandoval NP [address] [place] [address] Historical LMR Provider 03/13/17 Renee Mercedes MD [address] [place] [address], [facility] [address] [place] [address] Historical LMR Provider 03/13/17 documented as of this encounter Additional Source Comments The information contained in this document represents components of the legal health record. It is not the complete legal health record.[facility]
--- OUTSIDE RECORDS SUMMARY | 2025-03-07 15:39 | XMS_ITS | Encounter Summary ---
Author Organization [facility] Address [address] [place] [address] Phone Care Team Providers Care Arrow Point Attacher Name Role Phone Lion David Chung DO Unavailable Caro Sandoval RAYON WINDER Unavailable [phone] Renee Mercedes MD Unavailable [phone] David Seymour DO Primary Care Provider [phone] Encounter Details Date Type Department Care Team (Latest Contact Info) Description 07/20/2024 Transcribe Orders [facility] [address] [place] [address] Sudeep Cormier MD [address] [facility] 2 [place] [address] [email or web address] Abdominal pain, unspecified abdominal location (Primary Dx); Abnormal LFTs; Abnormal liver scan Social History Tobacco Use Types Packs/Day Years [...] Description 04/30/2025 2:00 PM EST Office Visit [facility]astic Surgery [address] [place] [address] Douglas Reyes MD [address] [place] [address] [email or web address] documented as of this encounter Results * Hepatitis C antibody, qualitative (07/20/2024 10:56 AM EST) HCV NON-REACTIV E NON-REACTI VE [facility] Blood 07/20/2024 10:5 6 AM EST 07/20/2024 11:01 AM EST us Sudeep Cormier MD LAB BLOOD ORDERABLES Final R esult [address] [address] * Hepatitis B surface antigen (07/20/2024 10:56 AM EST) HBV SURFACE ANTIGEN NON-REACTI VE NON-REACTI VE [facility] Blood 07/20/2024 10:5 6 AM EST 07/20/2024 11:01 AM EST us Sudeep Cormier MD LAB BLOOD ORDERABLES Final R esult Performing Organization Address City/[facility]/ZIP Co de Phone Number [address] [address] * Hepatitis B surface antibody (07/20/2024 10:56 AM EST) HBV SURFACE ANTIBODY Negative [facility] Comment: Unvaccinated: Negative Vaccinated: Positive Blood 07/20/2024 10:5 6 AM EST 07/20/2024 11:01 AM EST us Sudeep Cormier MD LAB BLOOD ORDERABLES Final R esult Performing Organization Address [facility] Co de Phone Number [address] [address] * Hepatitis B core antibody, total (07/20/2024 10:56 AM EST) HEP B CORE AB, TOT NON-REACTI VE NON-REACTI VE [facility] Blood 07/20/2024 10:5 6 AM EST 07/20/2024 11:01 AM EST us Sudeep Cormier MD LAB BLOOD ORDERABLES Final R esult Performing Organization Address [facility] Co de Phone Number [address] [address] * HEPATITIS A ANTIBODY, TOTAL (07/20/2024 10:56 AM EST) HAV TOTAL AB NON-REACTI VE NON-REACTI VE [facility] Blood 07/20/2024 10:5 6 AM EST 07/20/2024 11:01 AM EST us Sudeep Cormier MD LAB BLOOD ORDERABLES Final R esult Performing Organization Address City/[facility] Co de Phone Number [address] [address] * CPK (creatine kinase) (07/20/2024 10:56 AM EST) CREATINE KINASE 109 21 - 215 U/L [facility] Blood 07/20/2024 10:5 6 AM EST 07/20/2024 11:01 AM EST Sudeep Cormier MD LAB BLOOD ORDERABLES Final R esult Performing Organization Address City/[facility] Co de Phone Number [address] [address] * Comprehensive metabolic panel (07/20/2024 10:56 AM EST) SODIUM 137 133 - 146 mmol/L [facility] POTASSIUM 4.3 3.3 - 5.1 mmol/L [facility] CHLORIDE 101 96 - 108 mmol/L [facility] CO2 25 21 - 35 mmol/L [facility] BUN 15 6 - 19 mg/dL [facility] CREATININE 0.80 0.5 - 1.5 mg/dL [facility] GLUCOSE 96 70 - 99 mg/dL [facility] ALBUMIN 4.0 3.9 - 4.8 g/dL [facility] TOTAL PROTEIN 6.6 6.5 - 8.0 g/dL [facility] CALCIUM 9.3 8.4 - 10.3 mg/dL [facility] ALKALINE PHOSPHATASE 100 39 - 117 U/L [facility] TOTAL BILIRUBIN 0.3 0.0 - 1.2 mg/dL [facility] AST 33 0 - 37 U/L [facility] ALT 27 0 - 40 U/L [facility] GLOBULIN 2.6 1 - 4.8 g/dL [facility] EGFR 81 >59 mL/min/1.[address] [facility] Comment:Estimated glomerular filtration rate calculated using the CKD-EPI refit equation. ANION GAP 15 10 - 20 mmol/L [facility] Blood 07/20/2024 10:5 6 AM EST 07/20/2024 11:01 AM EST us Sudeep Cormier MD LAB BLOOD ORDERABLES Final R esult [address] [address] * Celiac Screening Test Panel (07/20/2024 10:56 AM EST) IgA 93 61 - 356 mg/dL [facility] Celiac Disease Panel/Interpret ation SEE NOTE [facility] Comment: (NOTE) See Comment: Negative serology. Celiac disease unlikely. However, approximately 10% of patients with celiac disease are seronegative. Also, patients who are already adhering to a gluten-free diet may be seronegative. If celiac disease is highly clinically suspected, consider HLA-DQ typing. Blood 07/20/2024 10:5 6 AM EST 07/20/2024 11:01 AM EST Sudeep Cormier MD LAB BLOOD ORDERABLES Final R esult Performing Organization Address City/[facility]/ZIP Co de Phone Number [facility] [address] [place] [address] * (ABNORMAL) CBC (07/20/2024 10:56 AM EST) WBC 4.02 4.00 - 11.00 K/uL [facility] RBC 3.98(L) 4.00 - 5.20 M/uL [facility] HGB 13.4 12.0 - 16.0 g/dL [facility] HCT 38.4 36.0 - 46.0 % [facility] PLT 249 150 - 450 K/uL [facility] MCV 96.5 80.0 - 100.[address] [facility] MCH 33.7(H) 27.0 - 31.[address] [facility] MCHC 34.9 32.0 - 36.0 g/dL [facility] RDW 12.3 11.5 - 14.5 % [facility] MPV 11.0 8.4 - 12.[address] [facility] NRBC 0.00 0.00 /[address] [facility] ABSOLUTE NRBC 0.00 0.00 K/uL [facility] Blood 07/20/2024 10:5 6 AM EST 07/20/2024 11:01 AM EST us Sudeep Cormier MD LAB BLOOD ORDERABLES Final R esult Performing Organization Address City/[facility]/ZIP Co de Phone Number [facility] [address] [place] [address] * Smooth Muscle Antibody (07/20/2024 10:56 AM EST) SMOOTH MUSCLE AB POSITIVE AT 1:20 [facility] Comment: Performing Pathologist, Sunil Ortega M.D., Ph.D. [id number] Normal: Negative at 1:20 Blood 07/20/2024 10:5 6 AM EST 07/20/2024 11:01 AM EST Sudeep Cormier MD LAB BLOOD ORDERABLES Final R esult Performing Organization Address City/[facility] Co de Phone Number [address] [address] * Antinuclear antibody (JANNIE) (07/20/2024 10:56 AM EST) JANNIE SCREEN ON HEP [address] Negative [address] [facility] Blood 07/20/2024 10:5 6 AM EST 07/20/2024 11:01 AM EST Sudeep Cormier MD LAB BLOOD ORDERABLES Final R esult Performing Organization Address [facility] Co de Phone Number [address] [address] * Anti-Mitochondrial Antibody (AMA) (07/20/2024 10:56 AM EST) MITOCHONDRIAL AB NEGATIVE AT 1:20 [facility] Comment: Performing Pathologist, Sunil Ortega M.D., Ph.D. [id number] Normal: Negative at 1:20 Blood 07/20/2024 10:5 6 AM EST 07/20/2024 11:01 AM EST Sudeep Cormier MD LAB BLOOD ORDERABLES Final R esult Performing Organization Address [facility] Co de Phone Number [address] [address] * AFP (non-maternal specimens) (07/20/2024 10:56 AM EST) AFP (NON-MATERNAL) 6.4 <7.9 ng/mL [facility] Comment: Test Methodology Yany [id number] Patient results determined by assays using different manufacturers or methods may not be comparable. Blood 07/20/2024 10:5 6 AM EST 07/20/2024 11:01 AM EST us Sudeep Cormier MD LAB BLOOD ORDERABLES Final R esult [facility] [address] [place] [address] documented in this encounter Visit Diagnoses Diagnosis Abdominal pain, unspecified abdominal location- Primary Abnormal LFTs Abnormal liver scan Nonspecific abnormal results of liver function study documented in this encounter Care Teams Arrow Point Attacher Relationship Specialty Start Date End Date David Seymour DO PCP - General Internal Medicine 04/06/17 David Seymour DO Historical LMR Provider 03/13/17 Caro Sandoval NP [address] [place] [address] Historical LMR Provider 03/13/17 Renee Mercedes MD [address] [place] [address], [facility] [address] [place] [address] [email or web address] Historical LMR Provider 03/13/17 documented as of this encounter Additional Source Comments The information contained in this document represents components of the legal health record. It is not the complete legal health record.[facility]
--- OUTSIDE RECORDS SUMMARY | 2025-03-07 15:39 | XMS_ITS | Encounter Summary ---
Author Organization [facility] Address [address] [facility] [address] [place] [address] Phone Care Team Providers Care Steam Tender Name Role Phone David Seymour DO Unavailable Caro Sandoval OREMAN Unavailable [phone] Mikey Leong MD Unavailable Renee Mercedes MD Unavailable Aidee Valladares OREMAN Unavailable Arnaldo Dillon MD Unavailable [phone] Unavailable [email or web address] Ana Cristina Parmar MD Unavailable [phone] Philip Stewart MD Unavailable [phone] David Seymour DO Primary Care Provider [phone] Reason for Referral * MRI/CAT Scan - Closed Specialty Diagnoses / Procedures Referred By Contac t Referred To Contact Radiology Diagnoses Other abnormal auditory perceptions, bilateral Procedures CT Face CHG CT SCAN, FACE/JAW CONTRAST CHG CT SCAN,MAXILLOFACIAL AREA,W/O CONTRAST Joana Bradshaw PA Phone: tel: fax: Referral ID Status Reason Start Date Expiration Date Visits Re quested Visits Authorized [id number] Closed 11/27/2020 05/26/2021 1 1 Encounter Details Date Type Department Care Team (Latest Contact Info) Description 11/27/2020 Transcribe Orders Virtual Department [address] [place] [address] Joana Bradshaw PA [address] [facility] [place] [address] [place] [address] Other abnormal auditory perceptions, bilateral (Primary Dx) Social History Tobacco Use Types [...] Description 04/30/2025 2:00 PM EST Office Visit [facility] Plastic Surgery [address] [place] [address] Douglas Reyes MD [address] [place] [address], [address] [address] [email or web address] documented as of this encounter Results * CT FACE WITHOUT CONTRAST (12/19/2020 3:14 PM EDT) Anatomical Region Laterality Modality Face Computed Tomogra phy 12/19/2020 3:16 PM EDT Impressions 12/19/2020 3:21 PM EDT No findings to account for the patient's symptoms. No evidence of sinusitis or polyps. Narrative 12/19/2020 3:21 PM EDT COMPARISON: None. TECHNIQUE: CT of the facial bones without contrast. Sagittal and coronal reformats generated. Automated exposure control utilized. CT FACIAL BONES FINDINGS: Brain: Normal. Orbits: Right lens implant. Otherwise normal. Soft tissue: Unremarkable. Bones/sinuses: Mild left nasal septal deviation. Ostiomeatal unit complexes are patent. Paranasal sinuses are clear. Mastoids, middle ears and external canals are clear. No nasal polyps. No destructive or suspicious bone lesions. Procedure Note Ta Urena MD - 12/19/2020 COMPARISON: None. TECHNIQUE: CT of the facial bones without contrast. Sagittal and coronalreformats generated. Automated exposure control utilized. CT FACIAL BONES FINDINGS: Brain: Normal. Orbits: Right lens implant. Otherwise normal. Soft tissue: Unremarkable. Bones/sinuses: Mild left nasal septal deviation. Ostiomeatal unitcomplexes are patent. Paranasal sinuses are clear. Mastoids, middle earsand external canals are clear. No nasal polyps. No destructive orsuspicious bone lesions. IMPRESSION: No findings to account for the patient's symptoms. No evidence ofsinusitis or polyps. Joana YAP IM CT HEAD/NECK Final Resu lt documented in this encounter Visit Diagnoses Diagnosis Other abnormal auditory perceptions, bilateral- Primary Other abnormal auditory perceptions, bilateral documented in this encounter Care Teams Steam Tender Relationship Specialty Start Date End Date David Seymour DO PCP - General Internal Medicine 04/06/17 David Seymour DO Historical LMR Provider 03/13/17 Caro Sandoval NP [address] [place] [address] Historical LMR Provider 03/13/17 Mikey Leong MD [address] [place] [address] [email or web address] Historical LMR Provider 03/13/17 05/31/21 Renee Mercedes MD [address] [facility] [place] [address] [email or web address] Historical LMR Provider 03/13/17 Aidee Valladares OREMAN [address] [place] [address] [email or web address] Historical LMR Provider 03/13/17 2 Arnaldo Dillon MD [address] [facility] [place] [address] Historical LMR Provider 03/13/17 05/31/21 Anahi Persaud, [facility] [email or web address] Historical LMR Provider 03/13/17 05/31/21 Ana Cristina Parmar MD [address], [place] [address] Historical LMR Provider 03/13/17 2 Philip Stewart MD [address] [place] [address] Historical LMR Provider 03/13/17 2 documented as of this encounter Additional Source Comments The information contained in this document represents components of the legal health record. It is not the complete legal health record.[facility]
--- OUTSIDE RECORDS SUMMARY | 2025-03-07 15:39 | XMS_ITS | Encounter Summary ---
Author Organization [facility] Address [address] [place] [address] Phone Care Team Providers Care Etl Analyst Developer Name Role Phone David Seymour DO Unavailable Caro Sandoval CUSTOMER SERVICE TELLER Unavailable [phone] Mikey Leong MD Unavailable Renee Mercedes MD Unavailable Aidee Valladares CUSTOMER SERVICE TELLER Unavailable Arnaldo Dillon MD Unavailable [phone] Unavailable [email or web address] Ana Cristina Parmar MD Unavailable + [phone] Philip Stewart MD Unavailable [phone] David Syemour DO Primary Care Provider [phone] Reason for Referral * - Closed Specialty Diagnoses / Procedures Referred By Radha bueno Referred To Contact Diagnoses Palpitations Procedures Stress Test Exercise Joana Bradshaw PA Phone: tel: fax: Referral ID Status Reason Start Date Expiration Date Visits Re quested Visits Authorized [id number] Closed 12/19/2019 12/18/2020 1 1 * Outpatient Procedure - Closed Specialty Diagnoses / Procedures Referred By Contac t Referred To Contact Diagnoses Palpitations Procedures Adult Echo TTE Joana Bradshaw PA Phone: tel: fax: Referral ID Status Reason Start Date Expiration Date Visits Re quested Visits Authorized [id number] Closed 12/19/2019 12/18/2020 1 1 Encounter Details Date Type Department Care Team (Latest Contact Info) Description 12/19/2019 Transcribe Orders Virtual Department 30 [place] [address] Joana Bradshaw PA 6 [facility] [place] [address] [place] [address] Palpitations (Primary Dx) Social History Tobacco Use Types [...] Description 04/30/2025 2:00 PM EST Office Visit [facility] Plastic Surgery [address] [place] [address] Douglas Reyes MD [address] [place] [address] [email or web address] documented as of this encounter Results * TTE COMPREHENSIVE (01/18/2020 11:55 AM EDT) Body Surface Area 1.6 m2 Height 162 cm Weight 59 kg Systolic BP 164 mmHg Diastolic BP 72 mmHg Left Atrium Dimension Anterior-Posterior 30 15 - 40 mm Aortic Valve Peak Velocity 164.0 cm/s Aortic Valve Peak Gradient 11 mmHg Aortic Sinus Diameter 27 mm Ascending Aorta Diameter 29 mm Inferior Vena Cava Diameter 12 0.0 - 21 mm Interventricular Septum Thickness 6 mm Left Ventricle Internal Diameter End Diastole 48 37 - 52 mm Left Ventricle Internal Diameter End Systole 29 22 - 35 mm Left Ventricular Outflow Tract Diameter 20.0 mm LVOT VTI REST 250 mm Left Ventricular Outflow Tract Velocity 1.5 m/s Left Ventricular Outflow Tract Gradient at Rest 9 mmHg Left Ventricular Posterior Wall Thickness 8 mm Ejection Fraction 70 50 - 75 Percent Mitral Valve Deceleration Time 229 ms Mitral Valve A Wave Speed 36.8 cm/s Mitral Valve E Wave Speed 59.1 cm/s Right Ventricle Basal Diameter 29.4 25 - 41 mm Tricuspid Valve Peak Velocity 2.3 m/s Raw LV EF% 63 % Left Atrial Volume 33 mL Left Atrial Volume Index 20.63 mL/m2 Right Ventricle Peak Systolic Pressure 24 mmHg Right Ventricle TAPSE 24 mm Right Atrium Pressure Estimated 3 mmHg Right Ventricle to Right Atrium Pressure Gradient 21 mmHg Right Ventricle Pulse Doppler S Wave 19.5 cm/s Aortic Valve Sinus Index 1 17 19 - 27 mm Ascending Aorta Diameter 18 mm Aortic Sinus Index 17 mm Ascending Aorta Index 18 mm Anatomical Region Laterality Modality Heart Ultrasound Narrative 01/18/2020 4:12 PM EDT Normal LV size and function EF 65%. Normal valve structure and function. Normal diastolic function. Left Ventricle The left ventricular cavity size and wall thickness are normal. Left ventricular systolic function is normal. There are no segmental left ventricular wall motion abnormalities noted. There is no evidence of diffuse left ventricular hypokinesis. The estimated ejection fraction is 70% (Normal 50-75%). The left ventricular ejection fraction was measured by the single dimension method. Left ventricular diastolic function appears within normal limits for age. There is no evidence of left ventricular thrombus. Right Ventricle The right ventricular size is normal. No evidence of right ventricular hypertrophy. The right ventricular systolic function is normal. There is no evidence of acute right ventricular strain. There are no wires noted in the right heart. There is no catheter noted in the right heart. Left Atrium The left atrium is normal in size. The left atrial anterior-posterior dimension measures 30 mm (normal 15-40 mm). The LA volume is 33 mL. The LA volume index is 20.63 mL/m2 (normal indexed value is 16-34 mL/m2). The pulmonary venous flow profiles are normal. Pulmonary vein connections were not well seen. No evidence suggestive of pulmonary vein stenosis. Right Atrium The right atrium is normal in size. The IVC is normal in size (2.1cm or less). The IVC measures 12 mm (normal <=21 mm). The IVC demonstrates normal collapse with inspiration which is consistent with normal RA pressure. The hepatic veins appear normal in size. There is no catheter noted in the right atrium. There is no pacer/ICD wire noted in the right atrium. Mitral Valve The mitral valve appears normal. The peak E wave is 59.1 cm/s. The peak A wave is 36.8 cm/s. The E/A ratio is 1.6. The medial E' is 7.18 cm/s. The lateral E' is 11.2 cm/s. The E/E' average is 6.4. There is no evidence of mitral stenosis. There is no evidence of mitral annular calcification. Leaflet thickness is normal. There is no evidence of mitral valve prolapse. There is trace mitral regurgitation detected by spectral and color Doppler. There is no evidence of mitral annular dilation. Tricuspid Valve The tricuspid valve appears normal. There is no evidence of tricuspid stenosis. The systolic pulmonary artery pressure is normal. There is evidence of trace tricuspid regurgitation by color and spectral Doppler. The RV systolic pressure was estimated from the peak TV regurgitant velocity. The estimated RV systolic pressure is 24 mmHg assuming a right atrial pressure of 3 mmHg. Aortic Valve The aortic valve appears normal. The aortic valve is tricuspid. The leaflets appear normal in thickness. There is no evidence of valvular aortic stenosis. The peak aortic valve gradient is 11 mmHg. There is no evidence of aortic regurgitation by color and spectral Doppler. The visualized portions of the thoracic aorta appear normal. Pulmonic Valve The pulmonary valve appears normal. There is no evidence of pulmonic stenosis. There is no evidence of pulmonary regurgitation by color and spectral Doppler. The pulmonary artery appears normal. Pericardium There is no evidence of pericardial effusion. There no evidence of a pleural effusion. There is no ascites. General Findings The image quality was good (2). Technique(s) used in the evaluation: Color flow Doppler and Spectral Doppler. The predominant rhythm during the study was sinus bradycardia. Comparison Findings No prior studies for comparison. us Joana YAP CV ECHO ORDERABLES Final Re sult * Stress Test Exercise (01/09/2020 11:40 AM EDT) Max BP Systolic 154 mmHg [facility] Max BP Diastolic 60 mmHg [facility] Max HR 169 BPM [facility] Resting HR 75 BPM [facility] Resting BP Systolic 116 mmHg [facility] Resting BP Diastolic 70 mmHg [facility] Peak METS 16.6 METS [facility] Peak HR 162 BPM [facility] Peak BP Systolic 144 mmHg [facility] Peak BP Diastolic 60 mmHg [facility] Anatomical Region Laterality Modality Heart Other 01/09/2020 10:5 0 AM EDT 01/09/2020 11:42 AM EDT Narrative 01/09/2020 3:56 PM EDT Response to Stress The patient exercised for minutes seconds, achieving 16.6 METS at peak exercise. Baseline blood pressure was 116/70 mmHg, and baseline heart rate was 75 bpm. Peak blood pressure was 144/60 mmHg. The patient achieved a peak heart rate of 162 bpm, which is% of their maximum predicted heart rate. Rate pressure product was [address]. REPORT - Pt exercised for 12:52 min on a ROXY protocol achieving 16.6 METS. Test terminated due to fatigue. Baseline resting HR was 64. Max heart rate achieved was 169 (106% MPHR). 1. EKG - Baseline EKG showed normal sinus rhythm with nonspecific ST T wave abn. When the pt stood up, there were 1-2 mm horizontal to downsloping ST depressions. EKGs remained abnormal during exercise and in recovery. 2. SYMPTOMS - no chest pain 3. EXERCISE PHYSIOLOGY - normal BP response to exercise. Excellent functional capacity for age. 4. ARRHYTHMIAS -several runs of ventricular bigeminy noted during exercise Conclusion - EKGs are nondiagnostic for ischemia due to abnormal baseline. Recommend repeating stress test with nuclear imaging. Pt had several runs of ventricular bigeminy during peak exercise. Echo has been ordered by PCP. Tino Wilcox CUSTOMER SERVICE TELLER with Dr Palma . us Joana YAP CV STRESS ORDERABLES Final Result documented in this encounter Visit Diagnoses Diagnosis Palpitations- Primary Palpitations Palpitations documented in this encounter Care Teams Etl Analyst Developer Relationship Specialty Start Date End Date David Seymour DO PCP - General Internal Medicine 04/06/17 David Seymour DO [email or web address] Historical LMR Provider 03/13/17 Caro Sandoval CUSTOMER SERVICE TELLER [address] [place] [address] [email or web address] Historical LMR Provider 03/13/17 Mikey Leong MD [address] [place] [address] [email or web address] Historical LMR Provider 03/13/17 05/31/21 Renee Mercedes MD [address] [address] [email or web address] Historical LMR Provider 03/13/17 Aidee Valladares CUSTOMER SERVICE TELLER 21 [place] [address] [email or web address] Historical LMR Provider 03/13/17 2 Arnaldo Dillon MD 22 [facility], [address] [place] [address] Historical LMR Provider 03/13/17 05/31/21 Anahi Persaud, RDCS Historical LMR Provider 03/13/17 05/31/21 Ana Cristina Parmar MD [address], [place] [address] Historical LMR Provider 03/13/17 2 Philip Stewart MD [address] [place] [address] Historical LMR Provider 03/13/17 2 documented as of this encounter Additional Source Comments The information contained in this document represents components of the legal health record. It is not the complete legal health record.[facility]
--- OUTSIDE RECORDS SUMMARY | 2025-03-07 15:39 | XMS_ITS | Encounter Summary ---
Author Organization [facility] Address [address] [place] [address] Phone Care Team Providers Care Heel Buffer Name Role Phone David Seymour DO Unavailable Caro Sandoval MANAGER LANGUAGE Unavailable [phone] Renee Mercedes MD Unavailable [phone] David Seymour DO Primary Care Provider [phone] Encounter Details Date Type Department Care Team (Late st Contact Info) Description 03/10/2024 Procedure Pass [facility], [address] [address] Social History Tobacco Use Types Packs/Day Years [...] Description 04/30/2025 2:00 PM EST Office Visit [facility] Plastic Surgery [address] [place] [address] Douglas Reyes MD [address] [place] [address] documented as of this encounter Visit Diagnoses Not on filedocumented in this encounter Care Teams Heel Buffer Relationship Specialty Start Date End Date David Seymour DO PCP - General Internal Medicine 04/06/17 David Seymour DO Historical LMR Provider 03/13/17 Caro Sandoval NP [address] [place] [address] Historical LMR Provider 03/13/17 Renee Mercedes MD [address] [place] [email or web address] Historical LMR Provider 03/13/17 documented as of this encounter Additional Source Comments The information contained in this document represents components of the legal health record. It is not the complete legal health record.[facility]
--- OUTSIDE RECORDS SUMMARY | 2025-03-07 15:39 | XMS_ITS | Encounter Summary ---
Author Organization [facility] Address [address] [place] [address] Phone Care Team Providers Care Interpersonal Communications Professor Name Role Phone Lion David Chung DO Unavailable Caro Sandoval SENIOR DESIGNER/ART DIRECTOR Unavailable [phone] Renee Mercedes MD Unavailable [phone] David Seymour DO Primary Care Provider [phone] Encounter Details Date Type Department Care Team (Latest Contact Info) Description 01/28/2023 Transcribe Orders [facility] [address] [address] Eliana Berry, SENIOR DESIGNER/ART DIRECTOR 10 [place] [address] Change in bowel habits (Primary Dx) Social History Tobacco Use Types [...] 2:00 PM EST Office Visit [facility] [address] [place] [address] Douglas Reyes MD 40 [facility], [address] [address] [email or web address] documented as of this encounter Results * Ova and parasites, stool (02/02/2023 5:30 AM EDT) Parasitic exam FINAL 3 1109 [facility] DPT OF LAB MED AND PAT+ Comment: (NOTE) SOURCE: STOOL, STLP OVA AND PARASITE, MICROSCOPY, F FINAL No parasites seen. Cryptosporidium, Cyclospora, and microsporidia are not readily detected by this method. Single negative specimen does not rule out parasitic infection. Stool (Stool) 02/02/2023 5:3 0 AM EDT 02/02/2023 7:20 AM EDT Eliana Berry NP MICROBIOLOGY - GENERAL OR DERABLES Final Result [facility] DPT OF LAB MED AND PAT+ [address] [place] [address] * Giardia antigen screen (02/02/2023 5:30 AM EDT) Pathologist [facility] GIARDIA ANTIGEN Negative Negative [facility] DPT OF LAB MED AND PAT+ Comment: (NOTE) ADDITIONAL INFORMATION Test Performed by Enzyme Immunoassay. Stool (Stool) 02/02/2023 5:3 0 AM EDT 02/02/2023 7:20 AM EDT Eliana Berry NP MICROBIOLOGY - GENERAL OR DERABLES Final Result Performing Organization Address City/[facility]/ZIP Co de Phone Number [facility] DPT OF LAB MED AND PAT+ [address] [place] [address] * Fecal leukocyte examination (02/02/2023 5:30 AM EDT) Special Requests None 02/02/2023 7:17 AM EDT [facility] GRAM STAIN No WBC seen on smear. 02/03/2023 8:15 AM EDT [facility] Stool (Stool) 02/02/2023 5:3 0 AM EDT 02/02/2023 7:19 AM EDT Eliana Berry NP MICROBIOLOGY - GENERAL OR DERABLES Final Result Performing Organization Address [facility] Co de Phone Number [address] [address] * Stool culture (02/02/2023 5:30 AM EDT) Special Requests None 02/02/2023 7:17 AM EDT [facility] Stool Culture NO SALMONELLA, SHIGELLA OR CAMPYLOBACTER ISOLATED 02/03/2023 8:48 AM EDT [facility] Stool (Stool) 02/02/2023 5:3 0 AM EDT 02/02/2023 7:19 AM EDT Comment:STOOL Eliana Berry NP MICROBIOLOGY - GENERAL OR DERABLES Final Result Performing Organization Address [facility] Co de Phone Number [address] [address] * Ova and parasites, stool (02/01/2023 6:57 AM EDT) Parasitic exam FINAL 3 1235 [facility] DPT OF LAB MED AND PAT+ Comment: (NOTE) SOURCE: STOOL, STLP OVA AND PARASITE, MICROSCOPY, F FINAL No parasites seen. Cryptosporidium, Cyclospora, and microsporidia are not readily detected by this method. Single negative specimen does not rule out parasitic infection. Stool (Stool) 02/01/2023 6:5 7 AM EDT 02/02/2023 7:21 AM EDT Eliana Berry NP MICROBIOLOGY - GENERAL OR DERABLES Final Result Performing Organization Address [facility] Co de Phone Number [facility] DPT OF LAB MED AND PAT+ [address] [place] [address] * Ova and parasites, stool (01/31/2023 9:02 AM EDT) Parasitic exam FINAL 3 1530 [facility] DPT OF LAB MED AND PAT+ Comment: (NOTE) SOURCE: STOOL, STLP OVA AND PARASITE, MICROSCOPY, F FINAL No parasites seen. Cryptosporidium, Cyclospora, and microsporidia are not readily detected by this method. Single negative specimen does not rule out parasitic infection. Stool (Stool) 01/31/2023 9:0 2 AM EDT 02/02/2023 7:20 AM EDT Eliana Berry NP MICROBIOLOGY - GENERAL OR DERABLES Final Result Performing Organization Address [facility] Co de Phone Number [facility] DPT OF LAB MED AND PAT+ [address] [place] [address] documented in this encounter Visit Diagnoses Diagnosis Change in bowel habits- Primary Other symptoms involving digestive system documented in this encounter Care Teams Interpersonal Communications Professor Relationship Specialty Start Date End Date David Seymour DO PCP - General Internal Medicine 04/06/17 David Seymour DO [email or web address] Historical LMR Provider 03/13/17 Caro Sandoval SENIOR DESIGNER/ART DIRECTOR [address] [place] [address] Historical LMR Provider 03/13/17 Renee Mercedes MD [address] [place] [address], [facility] [address] [place] [address] [email or web address] Historical LMR Provider 03/13/17 documented as of this encounter Additional Source Comments The information contained in this document represents components of the legal health record. It is not the complete legal health record.[facility]
--- OUTSIDE RECORDS SUMMARY | 2025-03-07 15:39 | XMS_ITS | Encounter Summary ---
Author Organization [facility] Address [address] [place] [address] Phone Care Team Providers Care Rental Counter Clerk Name Role Phone David Seymour DO Unavailable Caro Sandoval NAIL FEEDER Unavailable [phone] Mikey Leong MD Unavailable [phone] Renee Mercedes MD Unavailable Aidee Valladares NAIL FEEDER Unavailable [phone] Arnaldo Dillon MD Unavailable Anahi Persaud RD Unavailable [email or web address] Ana Cristina Parmar MD Unavailable [phone] Philip Stewart MD Unavailable [phone] David Seymour DO Primary Care Provider [phone] Encounter Details Date Type Department Care Team (Late st Contact Info) Description 11/27/2020 Procedure Pass [facility], Ct Scan - [address] [address] Social History Tobacco Use Types Packs/Day Years [...] Description 04/30/2025 2:00 PM EST [facility] [address] [place] [address] Douglas Reyes MD [address] [place] [address] [email or web address] documented as of this encounter Visit Diagnoses Not on filedocumented in this encounter Care Teams Rental Counter Clerk Relationship Specialty Start Date End Date David Seymour DO PCP - General Internal Medicine 04/06/17 David Seymour DO Historical LMR Provider 03/13/17 Caro Sandoval, NAIL FEEDER [address] [place] [address] [email or web address] Historical LMR Provider 03/13/17 Mikey Leong MD [address] [place] [address] [email or web address] Historical LMR Provider 03/13/17 05/31/21 Renee Mercedes MD [address] [place] [address] Historical LMR Provider 03/13/17 Aidee Valladares, NAIL FEEDER [address] [place] [address] [email or web address] Historical LMR Provider 03/13/17 2 Arnaldo Dillon MD 22 [facility], [address] [place] [address] [email or web address] Historical LMR Provider 03/13/17 05/31/21 Anahi Persaud, RDCS [email or web address] Historical LMR Provider 03/13/17 05/31/21 Ana Cristina Parmar MD [address], [place] [address] Historical LMR Provider 03/13/17 2 Philip Stewart MD [address] [place] [address] Historical LMR Provider 03/13/17 2 documented as of this encounter Additional Source Comments The information contained in this document represents components of the legal health record. It is not the complete legal health record.[facility]
--- OUTSIDE RECORDS SUMMARY | 2025-03-07 15:40 | XMS_ITS | Encounter Summary ---
Author Organization [facility] Address [address] [facility] [address] [place] [address] Phone Care Team Providers Care Body Shop Floorperson Name Role Phone David Seymour DO Unavailable Caro Sandoval CUSTOMER SERVICE REPRESENTATIVE Unavailable Mikey Leong MD Unavailable [phone] Renee Mercedes MD Unavailable Aidee Valladares CUSTOMER SERVICE REPRESENTATIVE Unavailable Arnaldo Dillon MD Unavailable [phone] Anahi Persaud RDCS Unavailable [email or web address] Ana Cristina Parmar MD Unavailable [phone] Philip Stewart MD Unavailable [phone] David Seymour DO Primary Care Provider [phone] Encounter Details Date Type Department Care Team (Latest Contact Info) Description 12/28/2019 Transcribe Orders [facility] [address] [place] [address] Simin Kimble, CRUZ [address] [place] [address] Dyspnea, unspecified type (Primary Dx) Social History [...] Description 04/30/2025 2:00 PM EST Office Visit [facility] Plastic Surgery [address] [place] [address] Douglas Reyes MD [address] [place] [address] [email or web address] documented as of this encounter Results * Pulmonary Function Test Reason for Exam: Other (specify) (Dyspnea unspecified); Performing Location: [facility] (05/06/2020 10:24 AM EST) FEV1 FVC FEV1/FVC TLC DLCO Anatomical Region Laterality Modality Other Impressions 05/06/2020 10:24 AM EST METHACHOLINE CHALLENGE TESTING A standard methacholine challenge study was performed according to ATS criteria on this 64 y.o. year-old female for evaluation of dyspnea. TECHNIQUE: After measurements of baseline spirometry, serial spirometry measurements were performed with the intervening administration of serially increasing doses of methacholine. RESULTS: Baseline spirometry is normal. After the administration of serially increasing doses of methacholine, there is no significant change in FEV1.. PC-20 is not reached. IMPRESSION: This represents a negative methacholine challenge study. us Provider Not In System PhD PFT ORDERABLES Final Result documented in this encounter Visit Diagnoses Diagnosis Dyspnea, unspecified type- Primary documented in this encounter Care Teams Body Shop Floorperson Relationship Specialty Start Date End Date David Seymour DO [email or web address] PCP - General Internal Medicine 04/06/17 David Seymour DO Historical LMR Provider 03/13/17 Caro Sandoval NP [address] [place] [address] [email or web address] Historical LMR Provider 03/13/17 Mikey Leong MD [address] [place] [address] [email or web address] Historical LMR Provider 03/13/17 05/31/21 Renee Mercedes MD [address] [address] Historical LMR Provider 03/13/17 Aidee Valladares NP [address] [place] [address] [email or web address] Historical LMR Provider 03/13/17 2 Arnaldo Dillon MD 22 [facility], [address] [place] [address] Historical LMR Provider 03/13/17 05/31/21 Anahi Persaud, RDCS Historical LMR Provider 03/13/17 05/31/21 Ana Cristina Parmar MD [address], [place] [address] Historical LMR Provider 03/13/17 2 Philip Stewart MD [address] [place] [address] Historical LMR Provider 03/13/1705/31/ 2 documented as of this encounter Additional Source Comments The information contained in this document represents components of the legal health record. It is not the complete legal health record.[facility]
--- OUTSIDE RECORDS SUMMARY | 2025-03-07 15:40 | XMS_ITS | Encounter Summary ---
Author Organization [facility] Address [address] [facility] [address] [place] [address] Phone Care Team Providers Care Pricer Name Role Phone David Seymour DO Unavailable Caro Sandoval CASING MACHINE OPERATOR Unavailable [phone] Renee Mercedes MD Unavailable [phone] David Seymour DO Primary Care Provider [phone] Reason for Referral * Outpatient Procedure - Closed Specialty Diagnoses / Procedures Referred By Radha bueno Referred To Contact Diagnoses Palpitations Procedures Stress Test Exercise Joana Bradshaw PA Phone: tel: fax: Referral ID Status Reason Start Date Expiration Date Visits Re quested Visits Authorized [id number] Closed 02/12/2022 02/12/2023 1 1 Encounter Details Date Type Department Care Team (Latest Contact Info) Description 02/12/2022 Transcribe Orders Virtual Department [address] [place] [address] Joana Bradshaw PA [address] [place] [address] [place] [address] Palpitations (Primary Dx) Social History Tobacco Use [...] Description 04/30/2025 2:00 PM EST Office Visit [facility] Plastic Surgery [address] [place] [address] Douglas Reyes MD [address] [place] [address] [email or web address] documented as of this encounter Results * Stress Test Exercise (03/11/2022 12:05 PM EDT) Max BP Systolic 154 mmHg [facility] Max BP Diastolic 70 mmHg [facility] Max HR 169 BPM [facility] Resting HR 82 BPM [facility] Resting BP Systolic 108 mmHg [facility] Resting BP Diastolic 70 mmHg [facility] Peak METS 17.2 METS [facility] Peak HR 157 BPM [facility] Anatomical Region Laterality Modality Heart Other 03/11/2022 10:2 8 AM EDT 03/11/2022 11:33 AM EDT Narrative 03/11/2022 2:12 PM EDT Response to Stress The patient exercised for minutes seconds, achieving 17.2 METS at peak exercise. Baseline blood pressure was 108/70 mmHg, and baseline heart rate was 82 bpm. The patient achieved a peak heart rate of 157 bpm, which is% of their maximum predicted heart rate. REPORT- Patient exercised for 13:14 minutes on a ROXY protocol achieving 17.2 METS. Test terminated due to fatigue. Baseline resting heart rate was 65 bpm. Maximum heart rate achieved was 169 bpm (108% MPHR). 1. EKG - Baseline EKG showed sinus rhythm with non-specific ST/T wave abnormalities. During exercise, there were up to 2 mm horizontal to up-sloping ST depressions in the inferior leads and V3-V6. 2. SYMPTOMS - No chest pain. 3. EXERCISE PHYSIOLOGY - Very high functional capacity for age. BP 102/68 at rest, 154/70 during exercise, and 122/70 upon discharge from stress lab. 4. ARRHYTHMIAS - Rare PVCs at rest that increased in frequency during exercise. Frequent brief runs of ventricular bigeminy noted during exercise. Conclusion - Stress test with EKG evidence of ischemia. No symptoms concerning for angina. Very high functional capacity for age. Recommend repeat testing with nuclear imaging. Edita Perla NP-C with Dr Mathews. us Joana YAP CV STRESS ORDERABLES Final Result documented in this encounter Visit Diagnoses Diagnosis Palpitations- Primary Palpitations documented in this encounter Care Teams Pricer Relationship Specialty Start Date End Date David Seymour DO PCP - General Internal Medicine 04/06/17 David Seymour DO Historical LMR Provider 03/13/17 Caro Sandoval NP [address] [place] [address] Historical LMR Provider 03/13/17 Renee Mercedes MD [address] [place] [address], [facility] [address] [place] [address] Historical LMR Provider 03/13/17 documented as of this encounter Additional Source Comments The information contained in this document represents components of the legal health record. It is not the complete legal health record.[facility]
--- OUTSIDE RECORDS SUMMARY | 2025-03-07 15:40 | XMS_ITS | Encounter Summary ---
Author Organization [facility] Address [address] [place] [address] Phone Care Team Providers Care Talent Partner Name Role Phone David Seymour DO Unavailable Caro Sandoval FACILITY DESIGNER Unavailable [phone] Renee Mercedes MD Unavailable [phone] David Seymour DO Primary Care Provider [phone] Encounter Details Date Type Department Care Team (Late st Contact Info) Description 09/15/2023 Procedure Pass [facility], [address] [address] Social History Tobacco Use Types Packs/Day Years [...] Description 04/30/2025 2:00 PM EST Office Visit [facility] Plastic Surgery [address] [place] [address] Douglas Reyes MD [address] [place] [address] documented as of this encounter Visit Diagnoses Not on filedocumented in this encounter Care Teams Talent Partner Relationship Specialty Start Date End Date David Seymour DO PCP - General Internal Medicine 04/06/17 David Seymour DO Historical LMR Provider 03/13/17 Caro Sandoval NP [address] [place] [address] Historical LMR Provider 03/13/17 Renee Mercedes MD [address] [place] [address] Historical LMR Provider 03/13/17 documented as of this encounter Additional Source Comments The information contained in this document represents components of the legal health record. It is not the complete legal health record.[facility]
--- OUTSIDE RECORDS SUMMARY | 2025-03-07 15:40 | XMS_ITS | Encounter Summary ---
Author Organization [facility] Address [address] [address] Phone Care Team Providers Care Regulation Supervisor Name Role Phone David Seymour DO Unavailable Caro Sandoval SALES ORDER SPECIALIST Unavailable Mikey Leong MD Unavailable Renee Mercedes MD Unavailable Aidee Valladares SALES ORDER SPECIALIST Unavailable Arnaldo Dillon MD Unavailable Anahi Persaud RDCS Unavailable [email or web address] Ana Cristina Parmar MD Unavailable [phone] Philip Stewart MD Unavailable [phone] David Seymour DO Primary Care Provider [phone] Encounter Details Date Type Department Care Team (Late st Contact Info) Description 10/27/2017 Transcribe Orders [facility] [address] [place] [address] David Seymour DO [address] [facility] [address] [place], [place] [id number] [email or web address] Routine medical exam (Primary Dx) Social History Tobacco Use Types Packs/Day Years Used Date Smoking Tobacco: Never Smokeless Tobacco: Never Alcohol Use Standard Drinks/Week Comments Yes 0 (1 standard drink = 0.6 oz pur e alcohol) Comments No Sex and Gender Information Value Date Recorded Sex Assigned at Not on file Legal Sex Female 9:51 PM EDT Gender Identity Not on file Sexual Orientation Not on file documented as of this encounter Plan of Treatment Upcoming Encounters Date Type Department Care Team (Late st Contact Info) Description 04/30/2025 2:00 PM EST Office Visit [facility] Plastic Surgery [address] [place] [address] Douglas Reyes MD [address] [place] [address] [email or web address] documented as of this encounter Results * Free T4 (10/27/2017 7:09 AM EDT) FREE T4 1.2 0.9 - 1.7 ng/dL [facility] Blood 10/27/2017 7:09 AM EDT 10/27/2017 7:11 AM EDT us David A Bigda DO LAB BLOOD ORDERABLES Final Resul t Performing Organization Address City/[facility]/ZIP Co de Phone Number [address] [address] * TSH (10/27/2017 7:09 AM EDT) Pathologist [facility] TSH 2.85 0.27 - 4.20 uIU/mL [facility] Blood 10/27/2017 7:09 AM EDT 10/27/2017 7:11 AM EDT us David A Bigda DO LAB BLOOD ORDERABLES Final Resul t Performing Organization Address [facility]/ZIP Co de Phone Number [address] [address] * (ABNORMAL) Lipid panel (10/27/2017 7:09 AM EDT) Pathologist [facility] HDL 95 mg/dL [facility] Comment: Interpretation: Risk Level Females Decreased >55mg/dL Average 50-55 mg/dL Increased <50 mg/dL CHOLESTEROL 204 0 - 240 mg/dL [facility] TRIGLYCERIDES 59 30 - 160 mg/dL [facility] LDL 97 50 - 129 mg/dL [facility] Comment: LDL levels in terms of risk for coronary heart disease: <100 mg/dL: Optimal 100-129 mg/dL: Near or above optimal 130-159 mg/dL: Borderline high 160-189 mg/dL: High >190 mg/dL: Very High CARDIAC RISK RATIO 2.1(L) 3.3 - 4.4 [facility] Blood 10/27/2017 7:09 AM EDT 10/27/2017 7:11 AM EDT us David Seymour DO LAB BLOOD ORDERABLES Final Resul t [address] [address] documented in this encounter Visit Diagnoses Diagnosis Routine medical exam- Primary Routine general medical examination at a health care facility documented in this encounter Care Teams Regulation Supervisor Relationship Specialty Start Date End Date David Seymour DO PCP - General Internal Medicine 04/06/17 David Seymour DO Historical LMR Provider 03/13/17 Caro Sandoval NP [address] [place] [address] Historical LMR Provider 03/13/17 Mikey Leong MD [address] [place] [address] [email or web address] Historical LMR Provider 03/13/17 05/31/21 Renee Mercedes MD [address] [place] [address] [address] [place] [address] [email or web address] Historical LMR Provider 03/13/17 Aidee Valladares SALES ORDER SPECIALIST [address] [place] [address] [email or web address] Historical LMR Provider 03/13/17 2 Arnaldo Dillon MD [address] [facility] 2[address] [place] [address] [email or web address] Historical LMR Provider 03/13/17 05/31/21 Anahi Persaud, RDCS [email or web address] Historical LMR Provider 03/13/17 05/31/21 Ana Cristina Parmar MD [address] [place] [address] Historical LMR Provider 03/13/17 2 Philip Stewart MD [address] [place] [address] Historical LMR Provider 03/13/17 2 documented as of this encounter Additional Source Comments The information contained in this document represents components of the legal health record. It is not the complete legal health record.[facility]
--- OUTSIDE RECORDS SUMMARY | 2025-03-07 15:40 | XMS_ITS | Encounter Summary ---
Author Organization [facility] Address [address] [facility] [address] [place] [address] Phone Care Team Providers Care Coordinator Of Health Services Name Role Phone David Seymour DO Unavailable Caro Sandoval HUNTING GUIDE Unavailable [phone] Renee Mercedes MD Unavailable [phone] David Seymour DO Primary Care Provider [phone] Reason for Referral * MRI/CAT Scan - Closed Specialty Diagnoses / Procedures Referred By Contalka t Referred To Contact Radiology Diagnoses Trochanteric bursitis, left hip Procedures MRI Hip (Left) CHG MRI LOWER EXTREM JT, W/O CONTRAST Joana Bradshaw PA Phone: tel: fax: Referral ID Status Reason Start Date Expiration Date Visits Re quested Visits Authorized [id number] Closed 10/27/2021 12/26/2021 1 1 Encounter Details Date Type Department Care Team (Latest Contact Info) Description 10/27/2021 Transcribe Orders Virtual Department 30 [place] [address] Joana Bradshaw PA [address] [facility] [place] [address] Trochanteric bursitis, left hip (Primary Dx); Left knee pain, unspecified chronicity Social History Tobacco Use Types Packs/Day Years [...] Description 04/30/2025 2:00 PM EST Office Visit [facility] Plastic Surgery [address] [place] [address] Douglas Reyes MD [address] [place] [address] [email or web address] documented as of this encounter Results * MRI HIP WITHOUT CONTRAST (LEFT) (11/12/2021 7:48 PM EDT) Anatomical Region Laterality Modality Hip Left Magnetic Resonan ce 11/13/2021 8:06 AM EDT Impressions 11/13/2021 9:27 AM EDT Full-thickness, partial-width tears of the gluteus minimus and medius tendons at the insertion with minimal retraction. Proximal hamstring tendinosis with a low-grade partial tear of the proximal semimembranosus tendon at the origin. Narrative 11/13/2021 9:27 AM EDT MRI HIP WITHOUT CONTRAST (LEFT) TECHNIQUE: Multi-sequence, multi-planar MRI of the hip without intravenous contrast. COMPARISON: XR PELVIS AP PLUS FROG OR OUTLET 2 VIEWS FINDINGS: ENTIRE PELVIS SCREENING: No fracture, sacroiliitis, or focal bone lesion. No intrapelvic soft tissue abnormality. DEDICATED HIP: Bone: No fracture or osteonecrosis. Joint: No displaced labral tear. No focal chondral defect or subchondral edema. No effusion or synovitis. Tendons: There are full-thickness, partial-width tears of the gluteus minimus and medius tendons at the insertion with minimal retraction. Mild adjacent soft tissue edema. There is proximal hamstring tendinosis with a low-grade partial tear of the proximal semimembranosus tendon at the origin. Adjacent soft tissue edema and bone marrow edema in the ischial tuberosity. Soft Tissues: No soft tissue mass. No bursal collection. Procedure Note Deb Romero MD - 11/13/2021 MRI HIP WITHOUT CONTRAST (LEFT) TECHNIQUE: Multi-sequence, multi-planar MRI of the hip without intravenouscontrast. COMPARISON: XR PELVIS AP PLUS FROG OR OUTLET 2 VIEWS 2021- FINDINGS: ENTIRE PELVIS SCREENING: No fracture, sacroiliitis, or focal bone lesion.No intrapelvic soft tissue abnormality. DEDICATED HIP: Bone: No fracture or osteonecrosis. Joint: No displaced labral tear. No focal chondral defect or subchondraledema. No effusion or synovitis. Tendons: There are full-thickness, partial-width tears of the gluteusminimus and medius tendons at the insertion with minimal retraction. Mildadjacent soft tissue edema. There is proximal hamstring tendinosis with alow-grade partial tear of the proximal semimembranosus tendon at theorigin. Adjacent soft tissue edema and bone marrow edema in the ischialtuberosity. Soft Tissues: No soft tissue mass. No bursal collection. IMPRESSION: Full-thickness, partial-width tears of the gluteus minimus and mediustendons at the insertion with minimal retraction. Proximal hamstring tendinosis with a low-grade partial tear of theproximal semimembranosus tendon at the origin. Joana YAP IMG MR EXTREMITY Final Resu lt documented in this encounter Visit Diagnoses Diagnosis Trochanteric bursitis, left hip- Primary Left knee pain, unspecified chronicity Trochanteric bursitis, left hip documented in this encounter Care Teams Coordinator Of Health Services Relationship Specialty Start Date End Date David Seymour DO [email or web address] PCP - General Internal Medicine 04/06/17 David Seymour DO [email or web address] Historical LMR Provider 03/13/17 Caro Sandoval NP [address] [place] [address] [email or web address] Historical LMR Provider 03/13/17 Renee Mercedes MD [address] [place] [address] [email or web address] Historical LMR Provider 03/13/17 documented as of this encounter Additional Source Comments The information contained in this document represents components of the legal health record. It is not the complete legal health record.[facility]
--- OUTSIDE RECORDS SUMMARY | 2025-03-07 15:40 | XMS_ITS | Encounter Summary ---
Author Organization [facility] Address [address] [facility] [address] [place] [address] Phone Care Team Providers Care Counter Intelligence Technician Name Role Phone David Seymour DO Unavailable Caro Sandoval PUBLIC SERVICE DIRECTOR Unavailable [phone] Renee Mercedes MD Unavailable [phone] David Seymour DO Primary Care Provider [phone] Reason for Referral * MRI/CAT Scan - Closed Specialty Diagnoses / Procedures Referred By Contalka t Referred To Contact Radiology Diagnoses Left knee pain, unspecified chronicity Procedures CT Knee (Left) CHG CT SCAN,LOWER EXTREMITY,W/O CONTRAST Joana Bradshaw PA Phone: tel: fax: Referral ID Status Reason Start Date Expiration Date Visits Re quested Visits Authorized [id number] Closed 11/05/2021 01/04/2022 1 1 Encounter Details Date Type Department Care Team (Latest Contact Info) Description 11/04/2021 Transcribe Orders Virtual Department 30 [place] [address] Joana Bradshaw PA 6 [facility] [place] [address] Left knee pain, unspecified chronicity (Primary Dx) Social [...] Description 04/30/2025 2:00 PM EST Office Visit [facility] Plastic Surgery [address] [place] [address] Douglas Reyes MD [address] [place] [address], [address] [address] [email or web address] documented as of this encounter Results * CT KNEE WITHOUT CONTRAST (LEFT) (11/18/2021 5:00 PM EDT) Anatomical Region Laterality Modality Knee Left Computed Tomogra phy 11/19/2021 10:3 0 AM EDT Impressions 11/19/2021 11:46 AM EDT No acute fracture. No joint effusion. Narrative 11/19/2021 11:[address] KNEE WITHOUT CONTRAST (LEFT) TECHNIQUE: Multidetector-row CT of the knee, without intravenous contrast using dose-modulation techniques. Images were reconstructed in the axial, coronal, and sagittal planes. 3D post-processing of the images was performed, and the post-processed images were used in interpretation. COMPARISON: None FINDINGS: Bones and Joints: Mild lateral patellar tilt. No fracture. Normal alignment. No effusion. Soft Tissues: No focal abnormality. Procedure Note Deb Romero MD - 11/19/2021 CT KNEE WITHOUT CONTRAST (LEFT) TECHNIQUE: Multidetector-row CT of the knee, without intravenous contrastusing dose-modulation techniques. Images were reconstructed in the axial,coronal, and sagittal planes. 3D post-processing of the images wasperformed, and the post-processed images were used in interpretation. COMPARISON: None FINDINGS: Bones and Joints: Mild lateral patellar tilt. No fracture. Normalalignment. No effusion. Soft Tissues: No focal abnormality. IMPRESSION: No acute fracture. No joint effusion. Laureano Urena MD IMG CT EXTREMITY Final Re sult documented in this encounter Visit Diagnoses Diagnosis Left knee pain, unspecified chronicity- Primary Left knee pain, unspecified chronicity documented in this encounter Care Teams Counter Intelligence Technician Relationship Specialty Start Date End Date David Seymour DO PCP - General Internal Medicine 04/06/17 David Seymour DO Historical LMR Provider 03/13/17 Caro Sandoval NP [address] [place] [address] Historical LMR Provider 03/13/17 Renee Mercedes MD [address] [place] [address] Historical LMR Provider 03/13/17 documented as of this encounter Additional Source Comments The information contained in this document represents components of the legal health record. It is not the complete legal health record.[facility]
--- OUTSIDE RECORDS SUMMARY | 2025-03-07 15:40 | XMS_ITS | Encounter Summary ---
Author Organization [facility] Address [address] [facility] [address] [place] [address] Phone Care Team Providers Care Consumer Electronics Merchandiser Name Role Phone David Seymour DO Unavailable Caro Sandoval INTELLIGENCE DIRECTOR Unavailable [phone] Mikey Leong MD Unavailable [phone] Renee Mercedes MD Unavailable Aidee Valladares INTELLIGENCE DIRECTOR Unavailable [phone] Arnaldo Dillon MD Unavailable [phone] Anahi Persaud RDCS Unavailable [email or web address] Ana Cristina Parmar MD Unavailable [phone] Philip Stewart MD Unavailable [phone] David Seymour DO Primary Care Provider [phone] Encounter Details Date Type Department Care Team (Late st Contact Info) Description 12/28/2019 Transcribe Orders [facility] [address] [place] [address] Simin Kimble, CRUZ [address] [place] [address] Social History Tobacco Use Types Packs/Day Years [...] Description 04/30/2025 2:00 PM EST Office Visit [facility] Plastic Surgery [address] [place] [address] Douglas Reyes MD [address] [place] [phone] [email or web address] documented as of this encounter Visit Diagnoses Not on filedocumented in this encounter Care Teams Consumer Electronics Merchandiser Relationship Specialty Start Date End Date David Seymour DO PCP - General Internal Medicine 04/06/17 David Seymour DO Historical LMR Provider 03/13/17 Caro Sandoval INTELLIGENCE DIRECTOR [address] [place] [address] Historical LMR Provider 03/13/17 Mikey Leong MD [address] [place] [address] [email or web address] Historical LMR Provider 03/13/17 05/31/21 Renee Mercedes MD [address] [place] [address] Historical LMR Provider 03/13/17 Aidee Valladares INTELLIGENCE DIRECTOR [address] [place] [address] [email or web address] Historical LMR Provider 03/13/17 2 Arnaldo Dillon MD [address] [facility], [address] [place] [address] Historical LMR Provider 03/13/17 05/31/21 Anahi Persaud, RDCS Historical LMR Provider 03/13/17 05/31/21 Ana Cristina Parmar MD [address], [place] [address] Historical LMR Provider 03/13/17 2 Philip Stewart MD [address] [place] [address] Historical LMR Provider 03/13/17 2 documented as of this encounter Additional Source Comments The information contained in this document represents components of the legal health record. It is not the complete legal health record.[facility]
--- OUTSIDE RECORDS SUMMARY | 2025-03-07 15:40 | XMS_ITS | Encounter Summary ---
Author Organization [facility] Address [address] [facility] [address] [place] [address] Phone Care Team Providers Care Station Jailer Name Role Phone David Seymour DO Unavailable Caro Sandoval SPORTS EQUIPMENT RACKER Unavailable [phone] Renee Mercedes MD Unavailable [phone] David Seymour DO Primary Care Provider [phone] Encounter Details Date Type Department Care Team (Latest Contact Info) Description 08/07/2021 Transcribe Orders Virtual Department 30 [place] [address] Joana Bradshaw PA [address] [place] [address] [place] [address] Left hip pain (Primary Dx); Finger pain, left Social History Tobacco Use Types Packs/Day Years [...] Description 04/30/2025 2:00 PM EST Office Visit [facility] Plastic Surgery [address] [place] [address] Douglas Reyes MD [address] [place] [address] [address] [place] [address] documented as of this encounter Results * XR PELVIS AP PLUS FROG OR OUTLET 2 VIEWS (08/14/2021 2:23 PM EDT) Anatomical Region Laterality Modality Hip, Pelvis Computed Radiogr aphy 08/14/2021 6:09 PM EDT Impressions 08/14/2021 6:11 PM EDT No findings to account for pain. Narrative 08/14/2021 6:11 PM EDT COMPARISON: Bilateral hip radiographs 06/16/2013. BILATERAL HIP/PELVIC RADIOGRAPH FINDINGS: 2 images obtained. No acute fracture or malalignment. Hip joint spaces are preserved. No destructive or suspicious bone lesions. No soft tissue swelling. Incidental umbilical peircing. Procedure Note Ta Urena MD - 08/14/2021 COMPARISON: Bilateral hip radiographs 06/16/2013. BILATERAL HIP/PELVIC RADIOGRAPH FINDINGS: 2 images obtained. No acute fracture or malalignment. Hip joint spaces are preserved. Nodestructive or suspicious bone lesions. No soft tissue swelling.Incidental umbilical peircing. IMPRESSION: No findings to account for pain. Joana YAP IMG XR PELVIS Final Resul t * XR HAND 3 OR MORE VIEWS (LEFT) (08/14/2021 2:22 PM EDT) Anatomical Region Laterality Modality Hand Left Computed Radiogr aphy 08/14/2021 6:11 PM EDT Impressions 08/14/2021 6:12 PM EDT No findings to account for pain. Narrative 08/14/2021 6:12 PM EDT COMPARISON: None. LEFT HAND RADIOGRAPH FINDINGS: 3 images obtained. Mild diffuse osteopenia. No acute fracture or malalignment. Joint spaces are preserved. No destructive or suspicious bone lesions. No soft tissue swelling or calcifications. Procedure Note Ta Urena MD - 08/14/2021 COMPARISON: None. LEFT HAND RADIOGRAPH FINDINGS: 3 images obtained. Mild diffuse osteopenia. No acute fracture or malalignment. Joint spacesare preserved. No destructive or suspicious bone lesions. No soft tissueswelling or calcifications. IMPRESSION: No findings to account for pain. Joana Bradshaw PA IMG XR UPPER EXTREMITY Krystal l Result documented in this encounter Visit Diagnoses Diagnosis Left hip pain- Primary Pain in joint, pelvic region and thigh Finger pain, left Pain in soft tissues of limb Finger pain, left Pain in soft tissues of limb Left hip pain Pain in joint, pelvic region and thigh documented in this encounter Care Teams Station Jailer Relationship Specialty Start Date End Date David Seymour DO PCP - General Internal Medicine 04/06/17 David Seymour DO [email or web address] Historical LMR Provider 03/13/17 Caro Sandoval NP [address] [place] [address] Historical LMR Provider 03/13/17 Renee Mercedes MD [address] [place] [address], [facility] [address] [place] [address] Historical LMR Provider 03/13/17 documented as of this encounter Additional Source Comments The information contained in this document represents components of the legal health record. It is not the complete legal health record.[facility]
--- OUTSIDE RECORDS SUMMARY | 2025-03-07 15:40 | XMS_ITS | Encounter Summary ---
Author Organization [facility] Address [address] [place] [address] Phone Care Team Providers Care Window Shade Ring Coverer Name Role Phone David Seymour DO Unavailable Caro Sandoval RECORDS ADMINISTRATOR Unavailable [phone] Renee Mercedes MD Unavailable [phone] David Seymour DO Primary Care Provider [phone] Reason for Referral * MRI/CAT Scan - Closed Specialty Diagnoses / Procedures Referred By Contalka t Referred To Contact Radiology Diagnoses Liver disorders in diseases classified elsewhere Procedures MRI Abdomen CHG MRI, ABDOMEN, COMBO Joana Bradshaw PA [address] [facility] [place] [address] Phone: tel: fax: Referral ID Status Reason Start Date Expiration Date Visits Re quested Visits Authorized [id number] Closed 03/03/2024 05/02/2024 1 1 Encounter Details Date Type Department Care Team (Latest Contact Info) Description 03/03/2024 Transcribe Orders Virtual Department [address] [place] [address] Joana Bradshaw PA [address] [facility] [place] [address] Right knee pain, unspecified chronicity (Primary Dx); Right hip pain; Liver disorders in diseases classified elsewhere Social History Tobacco Use Types Packs/Day Years [...] Description 04/30/2025 2:00 PM EST Office Visit [facility] Plastic Surgery [address] [place] [address] Douglas Reyes MD [address] [place] [address] [email or web address] documented as of this encounter Results * MRI ABDOMEN (LIVER) WITH AND WITHOUT CONTRAST (04/17/2024 4:01 PM EST) Anatomical Region Laterality Modality Abdomen Magnetic Resonan ce 04/24/2024 3:01 PM EST Impressions 04/24/2024 3:16 PM EST 1. Interval stability, of a lesion within hepatic segment 8, with imaging findings most likely representing focal nodular hyperplasia. No new lesions enhancing are identified. 2. Hepatic cysts. 3. Upper normal extrahepatic common duct. No choledocholithiasis. 4. Pancreatic divisum ductal morphology. Narrative 04/24/2024 3:16 PM EST MRI ABDOMEN (LIVER) WITH AND WITHOUT CONTRAST Referring clinician's provided indication for this examination in Epic: Outside Radiology Order; liver lesion. TECHNIQUE: Multiplanar MR imaging of the abdomen was performed using T1, T2, fat saturated, and diffusion weighted techniques. Dynamic multiphase imaging was also performed after administration of an intravenous gadolinium contrast agent. COMPARISON: MRI abdomen dated October 14, 2023. Ultrasound abdomen dated September 10, 2023. CT abdomen/pelvis dated February 29, 2008. FINDINGS: DEVICES/TUBES/LINES: None. LUNG BASES: The heart size is normal without pericardial effusion. No esophageal or paraspinal abnormality. Dependent areas of atelectasis are identified within both lungs. LIVER: The liver is of normal size, smooth in surface contour. There is an anterior enhancing lesion measuring 8 x 8 mm within hepatic segment 8 (image 26, series 701), previously measuring 8 x 8 mm. No abnormal washout is identified within the lesion. There is a probable ablation of the lesion to the background liver on the portal venous and delayed images. These findings confirm a focal nodular hyperplasia. This lesion is now well demonstrated on T1 and T2 images. There is a stable 4 mm subcapsular cyst identified within hepatic segment 7 (image 30, series 701). There are a few additional small subcentimeter cysts. No loss of signal is identified on opposed phase images. No intrahepatic biliary ductal dilatation. BILIARY: Nondilated gallbladder. No filling defects, wall thickening or gross inflammation. The extrahepatic common duct is upper normal measuring 7 mm. There is tapering to the ampulla. No choledocholithiasis. PANCREAS: No duct dilatation, mass lesions or adjacent inflammation. Pancreatic divisum ductal morphology. SPLEEN: No splenomegaly or focal splenic lesions. RENAL: No hydronephrosis, masses or perinephric collections. No renal cysts are present. No ureteral dilation or focal lesion. ADRENAL: No nodules or thickening. MESENTERY/RETROPERITONEUM: No free fluid or collection. No masses. No retroperitoneal hematoma. NODES: No adenopathy. VASCULAR: The aorta is nonaneurysmal. BOWEL: No mechanical bowel obstruction is present. No bowel wall thickening. No acute gastric or small bowel abnormality. Unremarkable appearance of the colon. No wall thickening, focal lesions or acute inflammation. The terminal ileum is normal. The appendix is nonvisualized. SOFT TISSUES: No abdominal wall hernia. No masses or collections. BONES: Minor degenerative changes, no suspicious lesions. Spinal curvature convexity to the right. Procedure Note Nine, Misha Grissom MD - 04/24/2024 MRI ABDOMEN (LIVER) WITH AND WITHOUT CONTRAST Referring clinician's provided indication for this examination in [facility]:Outside Radiology Order; liver lesion. TECHNIQUE: Multiplanar MR imaging of the abdomen was performed using T1,T2, fat saturated, and diffusion weighted techniques. Dynamic multiphaseimaging was also performed after administration of an intravenousgadolinium contrast agent. COMPARISON: MRI abdomen dated October 14, 2023. Ultrasound abdomen dated 2023. CT abdomen/pelvis dated February 29, 2008. FINDINGS: DEVICES/TUBES/LINES: None. LUNG BASES: The heart size is normal without pericardial effusion. Noesophageal or paraspinal abnormality. Dependent areas of atelectasis areidentified within both lungs. LIVER: The liver is of normal size, smooth in surface contour. There isan anterior enhancing lesion measuring 8 x 8 mm within hepatic segment 8(image 26, series 701), previously measuring 8 x 8 mm. No abnormal washoutis identified within the lesion. There is a probable ablation of thelesion to the background liver on the portal venous and delayed images.These findings confirm a focal nodular hyperplasia. This lesion is nowwell demonstrated on T1 and T2 images. There is a stable 4 mm subcapsularcyst identified within hepatic segment 7 (image 30, series 701). There area few additional small subcentimeter cysts. No loss of signal isidentified on opposed phase images. No intrahepatic biliary ductaldilatation. BILIARY: Nondilated gallbladder. No filling defects, wall thickening orgross inflammation. The extrahepatic common duct is upper normalmeasuring 7 mm. There is tapering to the ampulla. No choledocholithiasis. PANCREAS: No duct dilatation, mass lesions or adjacent inflammation.Pancreatic divisum ductal morphology. SPLEEN: No splenomegaly or focal splenic lesions. RENAL: No hydronephrosis, masses or perinephric collections. No renalcysts are present. No ureteral dilation or focal lesion. ADRENAL: No nodules or thickening. MESENTERY/RETROPERITONEUM: No free fluid or collection. No masses. Noretroperitoneal hematoma. NODES: No adenopathy. VASCULAR: The aorta is nonaneurysmal. BOWEL: No mechanical bowel obstruction is present. No bowel wallthickening. No acute gastric or small bowel abnormality. Unremarkableappearance of the colon. No wall thickening, focal lesions or acuteinflammation. The terminal ileum is normal. The appendix isnonvisualized. SOFT TISSUES: No abdominal wall hernia. No masses or collections. BONES: Minor degenerative changes, no suspicious lesions. Spinalcurvature convexity to the right. IMPRESSION: 1. Interval stability, of a lesion within hepatic segment 8, with imagingfindings most likely representing focal nodular hyperplasia. No newlesions enhancing are identified. 2. Hepatic cysts. 3. Upper normal extrahepatic common duct. No choledocholithiasis. 4. Pancreatic divisum ductal morphology. Joana YAP IMG MR ABDOMEN Final Resul t * XR HIP 2 VW RIGHT PLUS PELVIS (03/07/2024 3:34 PM EDT) Anatomical Region Laterality Modality Hip Right Computed Radiogr aphy 03/07/2024 5:09 PM EDT Impressions 03/07/2024 5:11 PM EDT FINDINGS/IMPRESSION: There is no evidence of acute fracture, subluxation, or dislocation. The hip joint space is grossly preserved. There is mild marginal osteophytosis of the superior acetabulum. There is mild degenerative change of the sacroiliac joints and symphysis pubis. There is apparent umbilical jewelry projecting over the midline abdomen. There are no acute soft tissue abnormalities. Narrative 03/07/2024 5:11 PM EDT XR HIP 2 VW RIGHT PLUS PELVIS 03/07/2024 3:07 PM Referring clinician's provided indication for this examination in [facility]: Outside Radiology Order; right hip pain COMPARISON: Pelvis/bilateral hip radiographs 08/14/2021 Procedure Note Lisa Coelho MD - 03/07/2024 XR HIP 2 VW RIGHT PLUS PELVIS 03/07/2024 3:07 PM Referring clinician's provided indication for this examination in [facility]:Outside Radiology Order; right hip pain COMPARISON: Pelvis/bilateral hip radiographs 08/14/2021 IMPRESSION: FINDINGS/IMPRESSION: There is no evidence of acute fracture, subluxation, or dislocation. Thehip joint space is grossly preserved. There is mild marginal osteophytosisof the superior acetabulum. There is mild degenerative change of thesacroiliac joints and symphysis pubis. There is apparent umbilical jewelryprojecting over the midline abdomen. There are no acute soft tissueabnormalities. Joana YAP IMG XR PELVIS Final Resul t * XR KNEE 4 OR MORE VIEWS (RIGHT) (03/07/2024 3:34 PM EDT) Anatomical Region Laterality Modality Knee Right Computed Radiogr aphy 03/07/2024 5:08 PM EDT Impressions 03/07/2024 5:09 PM EDT FINDINGS/IMPRESSION: There is no evidence of acute fracture, subluxation, or dislocation. There is minimal medial compartment joint space narrowing. There is no joint effusion. There are no acute soft tissue abnormalities. Narrative 03/07/2024 5:09 PM EDT XR KNEE 4 OR MORE VIEWS (RIGHT) 03/07/2024 3:07 PM Referring clinician's provided indication for this examination in [facility]: Outside Radiology Order; right hip pain COMPARISON: None Procedure Note Lisa Coelho MD - 03/07/2024 XR KNEE 4 OR MORE VIEWS (RIGHT) 03/07/2024 3:07 PM Referring clinician's provided indication for this examination in [facility]:Outside Radiology Order; right hip pain COMPARISON: None IMPRESSION: FINDINGS/IMPRESSION: There is no evidence of acute fracture, subluxation, or dislocation. Thereis minimal medial compartment joint space narrowing. There is no jointeffusion. There are no acute soft tissue abnormalities. Joana UGARTE XR LOWER EXTREMITY Krystal l Result documented in this encounter Visit Diagnoses Diagnosis Right knee pain, unspecified chronicity- Primary Right hip pain Pain in joint, pelvic region and thigh Liver disorders in diseases classified elsewhere Right knee pain, unspecified chronicity Right hip pain Pain in joint, pelvic region and thigh Liver disorders in diseases classified elsewhere documented in this encounter Care Teams Window Shade Ring Coverer Relationship Specialty Start Date End Date Lion David ChungDO PCP - General Internal Medicine 04/06/17 David Seymour DO Historical LMR Provider 03/13/17 Caro Sandoval NP [address] [place] [address] [email or web address] Historical LMR Provider 03/13/17 Renee Mercedes MD [address] [place] [address] Historical LMR Provider 03/13/17 documented as of this encounter Additional Source Comments The information contained in this document represents components of the legal health record. It is not the complete legal health record.[facility]
--- OUTSIDE RECORDS SUMMARY | 2025-03-07 15:40 | XMS_ITS | Encounter Summary ---
Author Organization [facility] Address [address] [address] Phone Care Team Providers Care Chief Operator Name Role Phone David Seymour DO Unavailable Caro Sandoval HOUSEKEEPER HEAD Unavailable [phone] Mikey Leong MD Unavailable [phone] Renee Mercedes MD Unavailable [phone] iAdee Valladares HOUSEKEEPER HEAD Unavailable Arnaldo Dillon MD Unavailable Anahi Persaud RDCS Unavailable [email or web address] Ana Cristina Parmar MD Unavailable [phone] Philip Stewart MD Unavailable [phone] David Seymour DO Primary Care Provider [phone] Encounter Details Date Type Department Care Team (Late st Contact Info) Description 03/16/2018 Ancillary Orders Virtual Department [address] [place] [address] David Seymour DO [address] [facility] [place] [address] [email or web address] Breast screening Social History Tobacco Use Types [...] Description 04/30/2025 2:00 PM EST Office Visit [facility] Plastic Surgery [address] [place] [address] Douglas Reyes MD [address] [place] [address] [email or web address] documented as of this encounter Results * BI MAMMOGRAM SCREENING WITH TOMOSYNTHESIS WITH CAD (BILATERAL) (05/18/2018 7:27 AM EST) Anatomical Region Laterality Modality Breast Left, Breast Right, Breast Bilateral Bila teral Mammography 05/18/2018 8:08 PM EST Impressions 05/18/2018 8:13 PM EST No mammographic change indicative of malignancy. Routine screening is recommended. BI-RADS CATEGORY: 1 - Negative. DENSITY: There are scattered fibroglandular densities. POS - [id number] Narrative 05/18/2018 8:13 PM EST FINDINGS: Bilateral full-field digital screening mammography is obtained and read in conjunction with computer-aided detection. 3-D tomosynthesis as well as 2-D C view imaging is also performed. Comparison includes the most recent exam from 05/12/2017 and as far back as 03/18/2012. Breasts are composed of scattered fibroglandular tissue. No new suspicious mass, suspicious microcalcifications, architectural distortion, focal skin thickening, or new asymmetry is detected. Procedure Note Ramu Barrett MD - 05/18/2018 FINDINGS: Bilateral full-field digital screening mammography is obtained and read inconjunction with computer-aided detection. 3-D tomosynthesis as well as2-D C view imaging is also performed. Comparison includes the most recentexam from 05/12/2017 and as far back as 03/18/2012. Breasts are composed of scattered fibroglandular tissue. No newsuspicious mass, suspicious microcalcifications, architectural distortion,focal skin thickening, or new asymmetry is detected. IMPRESSION: No mammographic change indicative of malignancy. Routine screening isrecommended. BI-RADS CATEGORY: 1 - Negative. DENSITY: There are scattered fibroglandular densities. POS - [id number] us David Seymour DO IMG MG EXAMS Final Result documented in this encounter Visit Diagnoses Diagnosis Breast screening Breast screening, unspecified Breast screening Breast screening, unspecified documented in this encounter Care Teams Chief Operator Relationship Specialty Start Date End Date David Seymour DO [email or web address] PCP - General Internal Medicine 04/06/17 David Seymour DO Historical LMR Provider 03/13/17 Caro Sandoval NP [address] [place] [address] [email or web address] Historical LMR Provider 03/13/17 Mikey Leong MD [address] [place] [address] [email or web address] Historical LMR Provider 03/13/17 05/31/21 Renee Mercedes MD [address] [place] [address] [address] [place] [address] Historical LMR Provider 03/13/17 Aidee aVlladares NP [address] [place] [address] [email or web address] Historical LMR Provider 03/13/17 2 Arnaldo Dillon MD [address] [address] Historical LMR Provider 03/13/17 05/31/21 Anahi Persaud, RDCS [email or web address] Historical LMR Provider 03/13/17 05/31/21 Ana Cristina Parmar MD [address], [place] [address] Historical LMR Provider 03/13/17 2 Philip Stewart MD [address] [place] [address] Historical LMR Provider 03/13/17 2 documented as of this encounter Additional Source Comments The information contained in this document represents components of the legal health record. It is not the complete legal health record.[facility]
--- OUTSIDE RECORDS SUMMARY | 2025-03-07 15:40 | XMS_ITS | Encounter Summary ---
Author Organization [facility] Address [address] [facility] [address] [place] [address] Phone Care Team Providers Care Trade Economist Name Role Phone David Seymour DO Unavailable Caro Sandoval NP Unavailable [phone] Renee Mercedes MD Unavailable [phone] David Seymour DO Primary Care Provider [phone] Encounter Details Date Type Department Care Team (Late st Contact Info) Description 11/04/2021 Procedure [facility], Ct Scan - [address] [address] Social History Tobacco Use Types Packs/Day Years [...] Description 04/30/2025 2:00 PM EST Office Visit [facility] Plastic Surgery [address] [place] [address] Douglas Reyes MD [address] [place] [address] documented as of this encounter Visit Diagnoses Not on filedocumented in this encounter Care Teams Trade Economist Relationship Specialty Start Date End Date Jose LuisDavid berryDO PCP - General Internal Medicine 04/06/17 David Seymour DO Historical LMR Provider 03/13/17 Caro Sandoval NP [address] [place] [address] [email or web address] Historical LMR Provider 03/13/17 Renee Mercedes MD [address] [place] [address] Historical LMR Provider 03/13/17 documented as of this encounter Additional Source Comments The information contained in this document represents components of the legal health record. It is not the complete legal health record.[facility]
--- OUTSIDE RECORDS SUMMARY | 2025-03-07 15:40 | XMS_ITS | Encounter Summary ---
Author Organization [facility] Address [address] [place] [address] Phone Care Team Providers Care Gasket Maker Name Role Phone David Seymour DO Unavailable Caro Sandoval FAMILY PRESERVATION WORKER Unavailable [phone] Mikey Leong MD Unavailable [phone] Renee Mercedes MD Unavailable Aidee Valladares FAMILY PRESERVATION WORKER Unavailable Arnaldo Dillon MD Unavailable [phone] Unavailable [email or web address] Ana Cristina Parmar MD Unavailable [phone] Philip Stewart MD Unavailable [phone] David Seymour DO Primary Care Provider [phone] Encounter Details Date Type Department Care Team (Late st Contact Info) Description 03/25/2021 Procedure Pass [address] [address] Social History Tobacco Use Types Packs/Day Years [...] Description 04/30/2025 2:00 PM EST Office Visit [facility] Plastic Surgery [address] [place] [address] Douglas Reyes MD [address] [place] [address] [email or web address] documented as of this encounter Visit Diagnoses Not on filedocumented in this encounter Care Teams Gasket Maker Relationship Specialty Start Date End Date David Seymour DO PCP - General Internal Medicine 04/06/17 David Seymour DO Historical LMR Provider 03/13/17 Caro Sandoval, FAMILY PRESERVATION WORKER [address] [place] [address] [email or web address] Historical LMR Provider 03/13/17 Mikey Leong MD [address] [place] [address] [email or web address] Historical LMR Provider 03/13/17 05/31/21 Renee Mercedes MD [address] [place] [address] Historical LMR Provider 03/13/17 Aidee Valladares, FAMILY PRESERVATION WORKER [address] [place] [address] [email or web address] Historical LMR Provider 03/13/17 2 Arnaldo Dillon MD 22 [facility], [address] [place] [address] [email or web address] Historical LMR Provider 03/13/17 05/31/21 Anahi Persaud, RDCS [email or web address] Historical LMR Provider 03/13/17 05/31/21 Ana Cristina Parmar MD [address] [address] Historical LMR Provider 03/13/17 2 Philip Stewart MD [address] [place] [address] Historical LMR Provider 03/13/17 2 documented as of this encounter Additional Source Comments The information contained in this document represents components of the legal health record. It is not the complete legal health record.[facility]
--- OUTSIDE RECORDS SUMMARY | 2025-03-07 15:40 | XMS_ITS | Encounter Summary ---
Author Organization [facility] Address [address] [facility] [address] [place] [address] Phone Care Team Providers Care Casino Cashier Name Role Phone Lion David Chung DO Unavailable Caro Sandoval PROCESS DEVELOPMENT MANAGER Unavailable [phone] Renee Mercedes MD Unavailable [phone] David Seymour DO Primary Care Provider [phone] Encounter Details Date Type Department Care Team (Late st Contact Info) Description 09/12/2021 Ancillary Orders Virtual Department 30 [place] [address] Joana Bradshaw PA [address] [place] [address] [place] [address] Osteopenia, unspecified location; Other specified disorders of bone density and structure, right shoulder Social History Tobacco Use Types Packs/Day Years [...] Description 04/30/2025 2:00 PM EST Office Visit [facility] Plastic Surgery [address] [place] [address] Douglas Reyes MD [address] [place] [address], [address] [place] [address] documented as of this encounter Results * BD DXA AXIAL (SPINE) WITH HIP (01/07/2022 1:24 PM EDT) Anatomical Region Laterality Modality Bone Density Bone Density 01/07/2022 1:25 PM EDT Impressions 01/07/2022 1:30 PM EDT 1.Interval lumbar spine and bilateral total hip osteopenia. 2.Bilateral femoral neck osteopenia. 3.Mild decrease in lumbar spine and bilateral hip bone density since 2009. Narrative 01/07/2022 1:30 PM EDT COMPARISON: 03/13/2010 BONE DENSITY FINDINGS: History: This is a 66-year-old postmenopausal female. Evaluation of the lumbar spine and hips was performed and felt to be technically adequate. L1-L3 vertebral bodies total bone mineral density was calculated at 0.824 gm/cm2 with a T-score of -1.8 falling within the WHO classification of osteopenia-previously normal. Z-score of -0.1. Fracture risk increased. 14.2% decrease in bone density which is statistically significant. Right femoral neck bone mineral density was calculated at 0.599 gm/cm2 with a T- score of -2.3 falling within the WHO classification of osteopenia-unchanged. Z-score of -0.8. Total Right hip bone mineral density was calculated at 0.798 gm/cm2 with a T- score of -1.2 falling within the WHO classification of osteopenia-previously normal. Z-score of 0. 8.6% decrease in bone density which is statistically significant. Left femoral neck bone mineral density was calculated at 0.608 gm/cm2 with a T- score of -2.2 falling within the WHO classification of osteopenia-unchanged. Z-score of -0.7. Total Left hip bone mineral density was calculated at 0.749 gm/cm2 with a T- score of -1.6 falling within the WHO classification of osteopenia-previously normal. Z-score of -0.4. 11.2% decrease in bone density which is statistically significant. Procedure Note Ta Urena MD - 01/07/2022 COMPARISON: 03/13/2010 BONE DENSITY FINDINGS: History: This is a 66-year-old postmenopausal female. Evaluation of the lumbar spine and hips was performed and felt to betechnically adequate. L1-L3 vertebral bodies total bone mineral density was calculated at 0.824gm/cm2 with a T-score of -1.8 falling within the WHO classification ofosteopenia-previously normal. Z-score of -0.1. Fracture risk increased.14.2% decrease in bone density which is statistically significant. Right femoral neck bone mineral density was calculated at 0.599 gm/qr8mouo a T- score of -2.3 falling within the WHO classification ofosteopenia-unchanged. Z-score of -0.8. Total Right hip bone mineral density was calculated at 0.798 gm/cm2 with aT- score of -1.2 falling within the WHO classification ofosteopenia-previously normal. Z- score of 0. 8.6% decrease in bonedensity which is statistically significant. Left femoral neck bone mineral density was calculated at 0.608 gm/cm2 witha T- score of -2.2 falling within the WHO classification ofosteopenia-unchanged. Z-score of -0.7. Total Left hip bone mineral density was calculated at 0.749 gm/cm2 with aT-score of -1.6 falling within the WHO classification ofosteopenia-previously normal. Z- score of -0.4. 11.2% decrease in bonedensity which is statistically significant. IMPRESSION: 1.Interval lumbar spine and bilateral total hip osteopenia. 2.Bilateral femoral neck osteopenia. 3.Mild decrease in lumbar spine and bilateral hip bone density [id number]. Joana UGARTE BD BONE DENSITY DEXA Fi nal Result documented in this encounter Visit Diagnoses Diagnosis Osteopenia, unspecified location Other specified disorders of bone density and structure, right shoulder Osteopenia, unspecified location Other specified disorders of bone density and structure, right shoulder documented in this encounter Care Teams Casino Cashier Relationship Specialty Start Date End Date David Seymour DO PCP - General Internal Medicine 04/06/17 David Seymour DO Historical LMR Provider 03/13/17 Caro Sandoval NP [address] [place] [address] Historical LMR Provider 03/13/17 Renee Mercedes MD [address] [place] [address] [address] [place] [address] Historical LMR Provider 03/13/17 documented as of this encounter Additional Source Comments The information contained in this document represents components of the legal health record. It is not the complete legal health record.[facility]
--- OUTSIDE RECORDS SUMMARY | 2025-03-07 15:40 | XMS_ITS | Encounter Summary ---
Author Organization [facility] Address [address] [address] Phone Care Team Providers Care Experimental Flight Test Mechanic Name Role Phone David Seymour DO Unavailable Caro Sandoval NP Unavailable [phone] Renee Mercedes MD Unavailable [phone] David Seymour DO Primary Care Provider [phone] Encounter Details Date Type Department Care Team (Late st Contact Info) Description 10/27/2021 Procedure Pass [facility], [address] [address] Social History Tobacco Use Types Packs/Day Years [...] Description 04/30/2025 2:00 PM EST Office Visit [facility] Plastic Surgery [address] [place] [address] Douglas Reyes MD [address] [place] [address] [email or web address] documented as of this encounter Visit Diagnoses Not on filedocumented in this encounter Care Teams Experimental Flight Test Mechanic Relationship Specialty Start Date End Date Jose LuisDavid berryDO PCP - General Internal Medicine 04/06/17 David Seymour JulietDO Historical LMR Provider 03/13/17 Caro Sandoval NP [address] [place] [address] [email or web address] Historical LMR Provider 03/13/17 Renee Mercedes MD [address] [place] [address] Historical LMR Provider 03/13/17 documented as of this encounter Additional Source Comments The information contained in this document represents components of the legal health record. It is not the complete legal health record.[facility]
--- OUTSIDE RECORDS SUMMARY | 2025-03-07 15:40 | XMS_ITS | Encounter Summary ---
Author Organization [facility] Address [address] [facility] [address] [place] [address] Phone Care Team Providers Care Branch Associate Teller Name Role Phone David Seymour DO Unavailable Caro Sandoval TROMBONE SLIDE ASSEMBLER Unavailable [phone] Renee Mercedes MD Unavailable [phone] David Seymour DO Primary Care Provider [phone] Reason for Referral * MRI/CAT Scan - Closed Specialty Diagnoses / Procedures Referred By Contalka t Referred To Contact Radiology Diagnoses Abnormal result of other cardiovascular function study Procedures NC Myocardial Perfusion Exercise Multiple CHG MYOCARDIAL SPECT MULTIPLE STUDIES Joana Bradshaw PA Phone: tel: fax: Referral ID Status Reason Start Date Expiration Date Visits Re quested Visits Authorized [id number] Closed 03/13/2022 05/12/2022 4 4 Encounter Details Date Type Department Care Team (Latest Contact Info) Description 03/12/2022 Transcribe Orders Virtual Department 30 [place] [address] Joana Bradshaw PA [address] [facility] [place] [address] [place] [address] Abnormal result of other cardiovascular function study (Primary Dx) Social History Tobacco Use Types [...] Description 04/30/2025 2:00 PM EST Office Visit [facility] Plastic Surgery [address] [place] [address] Douglas Reyes MD [address] [place] [address], [address] [address] [email or web address] documented as of this encounter Results * NC Myocardial Perfusion Exercise Multiple (03/24/2022 11:35 AM EDT) Anatomical Region Laterality Modality Heart, Vascular Nuclear Medicine 03/27/2022 4:15 PM EDT Impressions 03/27/2022 4:25 PM EDT No evidence of ischemia or infarction. Ejection fraction = 79 % Narrative 03/27/2022 4:25 PM EDT HISTORY : Abnormal study. COMPARISON: Nuclear medicine myocardial perfusion study 01/15/2020 TECHNIQUE: An exercise stress test performed following Rajesh protocol. The patient exercised for total of 13 minutes and 30 seconds stopping due to fatigue. Target heart rate achieved at the time of injection. DOSE: Rest dose is 11.1 T c-99m sestamibi, Stress dose 34.9 Tc-99m sestamibi FINDINGS: There appears to be normal distribution of tracer throughout the left ventricular myocardium on both stress and rest. No fixed or reversible defects. No evidence of heart wall motion abnormalities. Ejection fraction is calculated to be 79 % (compared with 74 % on 01/15/2020) which is within the normal range. T.I.D. ratio calculated to be 1.12 Procedure Note Sudeep Chatterjee MD - 03/27/2022 HISTORY : Abnormal study. COMPARISON: Nuclear medicine myocardial perfusion study 01/15/2020 TECHNIQUE: An exercise stress test performed following Rajesh protocol.The patient exercised for total of 13 minutes and 30 seconds stopping dueto fatigue. Target heart rate achieved at the time of injection. DOSE: Rest dose is 11.1 T c-99m sestamibi, Stress dose 34.9 Tc-99msestamibi FINDINGS: There appears to be normal distribution of tracer throughout the leftventricular myocardium on both stress and rest. No fixed or reversibledefects. No evidence of heart wall motion abnormalities. Ejection fraction is calculated to be 79 % (compared with 74 % on01/15/2020) which is within the normal range. T.I.D. ratio calculated to be 1.12 IMPRESSION: No evidence of ischemia or infarction. Ejection fraction = 79 % us Joana YAP CV [place] CARDIAC Final Resul t documented in this encounter Visit Diagnoses Diagnosis Abnormal result of other cardiovascular function study- Primary Abnormal result of other cardiovascular function study documented in this encounter Care Teams Branch Associate Teller Relationship Specialty Start Date End Date David Seymour DO PCP - General Internal Medicine 04/06/17 David Seymour DO Historical LMR Provider 03/13/17 Caro Sandoval NP [address] [place] [address] Historical LMR Provider 03/13/17 Renee Mercedes MD [address] [place] [address] Historical LMR Provider 03/13/17 documented as of this encounter Additional Source Comments The information contained in this document represents components of the legal health record. It is not the complete legal health record.[facility]
--- OUTSIDE RECORDS SUMMARY | 2025-03-07 15:40 | XMS_ITS | Encounter Summary ---
Author Organization [facility] Address [address] [place] [address] Phone Care Team Providers Care Foster Care Worker Name Role Phone David Seymour DO Unavailable Caro Sandoval AIR FORCE PILOT Unavailable [phone] Renee Mercedes MD Unavailable [phone] David Seymour DO Primary Care Provider [phone] Reason for Referral * MRI/CAT Scan - Closed Specialty Diagnoses / Procedures Referred By Contalka t Referred To Contact Radiology Diagnoses Liver disease, unspecified Procedures MRI Abdomen CHG MRI, ABDOMEN, COMBO Joana Bradshaw PA 6 [facility] [place] [address] [place] [address] Phone: tel: fax: Referral ID Status Reason Start Date Expiration Date Visits Re quested Visits Authorized [id number] Closed 09/13/2023 11/12/2023 1 1 Encounter Details Date Type Department Care Team (Latest Contact Info) Description 09/15/2023 Transcribe Orders Virtual Department [address] [place] [address] Joana Bradshaw PA [address] [facility] [place] [address] Liver disease, unspecified (Primary Dx) Social History Tobacco Use Types [...] Description 04/30/2025 2:00 PM EST Office Visit [facility] Plastic Surgery [address] [place] [address] Douglas Reyes MD [address] [place] [address] documented as of this encounter Results * MRI ABDOMEN (LIVER) WITH AND WITHOUT CONTRAST (10/14/2023 3:32 PM EDT) Anatomical Region Laterality Modality Abdomen Magnetic Resonan ce 10/15/2023 6:01 AM EDT Impressions 10/15/2023 7:51 AM EDT Subcentimeter hepatic segment 8 focal liver lesion corresponding to the hypoechoic lesion seen on prior ultrasound most likely represents focal nodular hyperplasia, with adenoma a less likely differential consideration. RECOMMENDATION: Consider follow-up abdominal MRI with Eovist in 6-12 months to reassess/further characterize. Narrative 10/15/2023 7:51 AM EDT MRI ABDOMEN (LIVER) WITH AND WITHOUT CONTRAST Referring clinician's provided indication for this examination in Epic: Outside Radiology Order; liver lesion TECHNIQUE: Multiplanar MR imaging of the abdomen was performed using T1, T2, fat saturated, and diffusion weighted techniques. Dynamic multiphase imaging was also performed after administration of an intravenous gadolinium contrast agent. COMPARISON: US ABDOMEN LIMITED RIGHT UPPER QUADRANT FINDINGS: Lower Chest: Within normal limits. Liver: No global signal abnormality. Punctate simple appearing segment 7 cyst. Subcentimeter mildly diffusion and T2 hyperintense focal lesion in anterior segment 8 corresponding to the hypoechoic focal lesion seen on prior ultrasound (3:11, 4:12) which is minimally T1 hypointense, arterially hyperenhancing (601:38), and isoenhancing to background parenchyma by the delayed phase, without diffusion restriction (350:12) or intralesional fat. Biliary: No duct dilation or filling defect. Noninflamed gallbladder. Spleen: No splenomegaly or suspicious focal lesion. Pancreas: No solid mass or main duct dilation. Adrenal Glands: No nodule. Kidneys/Ureters: No solid renal mass or hydronephrosis. Peritoneum/Retroperitoneum: Trace pelvic free fluid. Lymph Nodes: No lymphadenopathy. Vessels: No abdominal aortic aneurysm. Bones/Soft Tissues: No suspicious osseous lesion. Small sacral perineural cyst. Procedure Note David Alexis MD - 10/15/2023 MRI ABDOMEN (LIVER) WITH AND WITHOUT CONTRAST Referring clinician's provided indication for this examination in Epic:Outside Radiology Order; liver lesion TECHNIQUE: Multiplanar MR imaging of the abdomen was performed using T1,T2, fat saturated, and diffusion weighted techniques. Dynamic multiphaseimaging was also performed after administration of an intravenousgadolinium contrast agent. COMPARISON: US ABDOMEN LIMITED RIGHT UPPER QUADRANT FINDINGS: Lower Chest: Within normal limits. Liver: No global signal abnormality. Punctate simple appearing segment 7cyst. Subcentimeter mildly diffusion and T2 hyperintense focal lesion inanterior segment 8 corresponding to the hypoechoic focal lesion seen onprior ultrasound (3:11, 4:12) which is minimally T1 hypointense,arterially hyperenhancing (601:38), and isoenhancing to backgroundparenchyma by the delayed phase, without diffusion restriction (350:12) orintralesional fat. Biliary: No duct dilation or filling defect. Noninflamed gallbladder. Spleen: No splenomegaly or suspicious focal lesion. Pancreas: No solid mass or main duct dilation. Adrenal Glands: No nodule. Kidneys/Ureters: No solid renal mass or hydronephrosis. Peritoneum/Retroperitoneum: Trace pelvic free fluid. Lymph Nodes: No lymphadenopathy. Vessels: No abdominal aortic aneurysm. Bones/Soft Tissues: No suspicious osseous lesion. Small sacral perineuralcyst. IMPRESSION: Subcentimeter hepatic segment 8 focal liver lesion corresponding to thehypoechoic lesion seen on prior ultrasound most likely represents focalnodular hyperplasia, with adenoma a less likely differentialconsideration. RECOMMENDATION: Consider follow-up abdominal MRI with Eovist in 6-12 months toreassess/further characterize. us Joana YAP IMG MR ABDOMEN Final Resul t documented in this encounter Visit Diagnoses Diagnosis Liver disease, unspecified- Primary Liver disease, unspecified documented in this encounter Care Teams Foster Care Worker Relationship Specialty Start Date End Date David Seymour DO PCP - General Internal Medicine 04/06/17 David Seymour DO Historical LMR Provider 03/13/17 Caro Sandoval NP [address] [place] [address] Historical LMR Provider 03/13/17 Renee Mercedes MD [address] [place] [address] [address] [place] [address] Historical LMR Provider 03/13/17 documented as of this encounter Additional Source Comments The information contained in this document represents components of the legal health record. It is not the complete legal health record.[facility]
--- OUTSIDE RECORDS SUMMARY | 2025-03-07 15:41 | XMS_ITS | Clinical Summary ---
Author Organization [facility] Address [address] [place] [address] Care Team Providers Care Vender Name Role Phone David Seymour DO Primary Care Provider Allergies Active Allergy Reactions Criticality Noted Date Comments Hydrocodone-Acetaminophen Other (See Comments) Low 08/18/2017 Latex Rash/Dermatitis Low 08/18/2017 Nickel Rash/Dermatitis Low 08/18/2017 Medications LORazepam (ATIVAN) 0.5 MG tablet Take 0.5 mg by mouth 4 times daily (every 6 hours) as needed. Active fexofenadine (Caryl Allergy) 180 MG tablet 09/15/2024 Active Multiple Minerals-Vitami ns (Bone Essentials) Cap calcium qd Active mometasone (NASONEX) 50 MCG/ACT nasal sprayIndication s:Chronic rhinitis 2 sprays into each nostril daily. 1 each 3 01/16/2025 Active Active Problems Problem Noted Date Diagnosed Date Chest pain 10/11/2024 MARCIAL (dyspnea on exertion) 12/02/2023 Overview (01/16/2025): Last Assessment & Plan: The patient does inform me she has noticed an increase in dyspnea on exertion when climbing stairs or walking up the hill to her home. This has become more pronounced and worsened in the past few months. She does remain active by performing aerobic exercise daily without any exertional symptoms. However given the significant family history of premature coronary artery disease I have ordered a stress echocardiogram to further evaluate for ischemic process. She was instructed to call 911 and go to the emergency room should she begin to experience chest pain or pressure or shortness of breath lasting greater than 10 minutes that does not resolve with rest. Frequent urination 07/02/2023 Osteopenia 09/12/2021 Atrophic vaginitis 03/25/2021 Allergic rhinitis 07/01/2020 Mold exposure 07/01/2020 Neutropenia 07/01/2020 Palpitations 03/11/2020 Overview (01/16/2025): Last Assessment & Plan: Denies perception of worsening palpitations. Recent Holter monitor as outlined above without any sustained arrhythmias. Encouraged to be mindful of her caffeine and alcohol intake as well as her hydration status. We did talk about the potential of using metoprolol as needed should her symptoms worsen. We will defer at this time. She will reach out to our office for any ongoing or worsening of symptoms. Encounters Date Type Department Care Team Description 01/16/2025 8:00 AM EDT Office Visit [facility] [place] [address] [facility], [place] [address] Cali Kasper MD Chronic rhinitis (Primary Dx); Tinnitus of both ears; Eustachian tube dysfunction, bilateral 01/09/2025 Orders Only [facility] [place] [address] [place] [address] Provider, MD Pallavi from Last 3 Months Immunizations Immunization Administration Dates Next Due Covid-19 MRNA Vaccine - Pfiz er 12+ (Purple Cap) 09/26/2021 Influenza, Quadrivalent (FLU ARIX, AFLURIA, FLULAVAL, FLUZONE) Preservative Free IM 02/14/2020,03/16/2019,02/24/2018,03/03,03/06/2016,02/26/2012 Influenza, Quadrivalent (FLU CELVAX) MDCK, Preservative Free IM 03/16/2019 Influenza, Recombinant, Quad rivalent (FLUBLOK) Preservative Free IM 02/28/2021 Influenza, Unspecified 02/28/2022 Pneumococcal Polysaccharide 23-Valent 01/22/2009 Tdap 01/22/2009 Zoster Vaccine Recombinant (Shingrix) 12/06/2020 ,09/27/2020 Zoster,unspecified 11/21/2020 Family History Medical History Relation Name Comments Heart disease Father Pieter Heart disease Mother Barbara Relation Name Status Comments Father Pieter Alive Mother Barbara Alive Social History Tobacco Use Types Packs/Day Years Used Date Smoking Tobacco: Never Smokeless Tobacco: Never Tobacco Cessation:Counseling Given: Not Answered Alcohol Use Standard Drinks/Week Comments Not Currently 0 (1 standard drink = 0.6 oz pur e alcohol) glass of wine occasionally Comments Unknown Sex and Gender Information Value Date Recorded Sex Assigned at Female 11/23/2024 8:49 AM EDT Legal Sex Female 8:48 AM EDT Gender Identity Female 11/23/2024 8:49 AM EDT Sexual Orientation Heterosexual (straight) 11/23 8:49 AM EDT Last Filed Vital Signs Vital Sign Reading Time Taken Comments Blood Pressure - - Pulse - - Temperature - - Respiratory Rate - - Oxygen Saturation - - Inhaled Oxygen Concentration - - Weight 60.3 kg (133 lb) 01/16/2025 8:01 AM EDT Height 162.6 cm (5' 4 ) 01/16/2025 8:01 AM EDT Body Mass Index 22.83 01/16/2025 8:01 AM EDT Plan of Treatment Health Maintenance Due Date Last Done Comments Advance Care Planning 1955 Hepatitis C Virus Screening 1955 Mammogram 1997 Colonoscopy 2002 Pneumococcal Vaccines 50+ (2 of 2 - PCV) 01/22/2010 01/22/2009 DTaP/Tdap/Td Vaccines (2 - Td or Tdap) 01/22/2019 01/22/2009 DXA Bone Density (Females,Ages 65 and older) 2022 Influenza Vaccine 12/22/2024 02/28/2022, , 02/14/2020, Additional history exists COVID-19 Vaccine (2 - 2024- season) 2025 09/26/2021 RSV Vaccine 50 years and older and Patients (1 - 1-dose 75+ series) 2032 Zoster (Shingles) Vaccine Completed 2020, 11/21/2020, 09/27/2020 Hepatitis B Vaccines Aged Out No long er eligible based on patient's age to complete this topic Procedures Procedure Name Priority Date/Time Associated Diagnosis Comments CT SCAN EXTERNAL RESULT Routine 01/02/2025 10:56 AM EDT from Last 3 Months Results * CT Scan External Result (01/02/2025 10:56 AM EDT) Anatomical Region Laterality Modality Computed Tomogra phy us External Provider MD UG[facility] CT ORDERABLES Final Res ult from Last 3 Months Insurance MEDICARE PART A & B [facility] Care Teams Vender Relationship Specialty Start Date End Date David Seymour DO [address] [facility] [place] [address] [place] [address] PCP - General 01/16/25
--- OUTSIDE RECORDS SUMMARY | 2025-03-07 15:41 | XMS_ITS | Encounter Summary ---
Author Organization [facility] Address [address] [place] [address] Phone Care Team Providers Care Mason Apprentice Name Role Phone David Seymour DO Unavailable Caro Sandoval NP Unavailable [phone] Renee Mercedes MD Unavailable [phone] David Seymour DO Primary Care Provider [phone] Encounter Details Date Type Department Care Team (Late st Contact Info) Description 07/02/2022 Procedure Pass [facility], [address] [address] Social History Tobacco Use Types Packs/Day Years [...] Description 04/30/2025 2:00 PM EST Office Visit [facility] Plastic Surgery [address] [place] [address] Douglas Reyes MD [address] [place] [address] [email or web address] documented as of this encounter Visit Diagnoses Not on filedocumented in this encounter Care Teams Mason Apprentice Relationship Specialty Start Date End Date Jose LuisDavid berryDO PCP - General Internal Medicine 04/06/17 David Seymour JulietDO Historical LMR Provider 03/13/17 Caro Sandoval NP [address] [place] [address] [email or web address] Historical LMR Provider 03/13/17 Renee Mercedes MD [address] [place] [address] Historical LMR Provider 03/13/17 documented as of this encounter Additional Source Comments The information contained in this document represents components of the legal health record. It is not the complete legal health record.[facility]
--- OUTSIDE RECORDS SUMMARY | 2025-03-07 15:41 | XMS_ITS | Encounter Summary ---
Author Organization [facility] Address [address] [facility] [address] [place] [address] Phone Care Team Providers Care Kitchen Hand Name Role Phone David Seymour DO Unavailable Caro Sandoval RAILROAD CAR LETTERER Unavailable [phone] Renee Mercedes MD Unavailable [phone] David Seymour DO Primary Care Provider [phone] Encounter Details Date Type Department Care Team (Latest Contact Info) Description 03/24/2022 Ancillary Orders Virtual Department 30 [place] [address] Joana Bradshaw PA [address] [place] [address] [place] [address] Abnormal result of other cardiovascular function study Social History Tobacco Use Types Packs/Day Years [...] Description 04/30/2025 2:00 PM EST Office Visit [facility] Plastic Surgery [address] [place] [address] Douglas Reyes MD [address] [place] [address] [email or web address] documented as of this encounter Results * NC Stress Result for Nuclear Stress Test (03/24/2022 10:58 AM EDT) Max BP Systolic 148 mmHg [facility] Max BP Diastolic 56 mmHg [facility] Max HR 179 BPM [facility] Resting HR 66 BPM [facility] Resting BP Systolic 118 mmHg [facility] Resting BP Diastolic 70 mmHg [facility] Peak METS 17.2 METS [facility] Peak HR 157 BPM [facility] Anatomical Region Laterality Modality Heart Other 03/24/2022 9:24 AM EDT 03/24/2022 10:56 AM EDT Narrative 03/25/2022 10:42 AM EDT Response to Stress The patient exercised for minutes seconds, achieving 17.2 METS at peak exercise. Baseline blood pressure was 118/70 mmHg, and baseline heart rate was 66 bpm. The patient achieved a peak heart rate of 157 bpm, which is% of their maximum predicted heart rate. REPORT - Pt exercised for 13:30 min on a ROXY protocol achieving 17.2 METS. Test terminated due to fatigue. Baseline resting HR was 52. Max heart rate achieved was 179 (114% MPHR). 1. EKG - Baseline EKG showed normal sinus bradycardia. When leads were placed in the stress practice lead position, there were diffuse nonspecific ST T wave abn. During exercise, EKG changes became more pronounced. 2. SYMPTOMS - no chest pain 3. EXERCISE PHYSIOLOGY - normal BP response to exercise. Excellent functional capacity for age. 4. ARRHYTHMIAS - occasional PVCs and PACs Conclusion - EKGs are nondiagnostic for ischemia due to abnormal baseline. Nuclear images pending and will be reported separately. Tino Wilcox RAILROAD CAR LETTERER with Dr Pradhan . us Joana YAP CV NM CARDIAC Final Resul t documented in this encounter Visit Diagnoses Diagnosis Abnormal result of other cardiovascular function study Abnormal result of other cardiovascular function study documented in this encounter Care Teams Kitchen Hand Relationship Specialty Start Date End Date David Seymour DO [email or web address] PCP - General Internal Medicine 04/06/17 David Seymour DO [email or web address] Historical LMR Provider 03/13/17 Caro Sandoval NP [address] [place] [address] [email or web address] Historical LMR Provider 03/13/17 Renee Mercedes MD [address] [place] [address] [email or web address] Historical LMR Provider 03/13/17 documented as of this encounter Additional Source Comments The information contained in this document represents components of the legal health record. It is not the complete legal health record.[facility]
--- OUTSIDE RECORDS SUMMARY | 2025-03-07 15:41 | XMS_ITS | Encounter Summary ---
Author Organization [facility] Address [address] [facility] [address] [place] [address] Phone Care Team Providers Care Principal Archaeologist Name Role Phone David Seymour DO Unavailable Caro Sandoval EVENT REPRESENTATIVE Unavailable [phone] Renee Mercedes MD Unavailable [phone] David Seymour DO Primary Care Provider [phone] Encounter Details Date Type Department Care Team (Latest Contact Info) Description 09/12/2021 Transcribe Orders Virtual Department 30 [place] [address] Joana Bradshaw PA [address] [place] [address] [place] [address] Osteopenia, unspecified location Social History Tobacco Use Types Packs/Day Years [...] Description 04/30/2025 2:00 PM EST Office Visit [facility] Plastic Surgery [address] [place] [address] Douglas Reyes MD [address] [place] [address] documented as of this encounter Visit Diagnoses Diagnosis Osteopenia, unspecified location documented in this encounter Care Teams Principal Archaeologist Relationship Specialty Start Date End Date David Seymour DO PCP - General Internal Medicine 04/06/17 David Seymour DO Historical LMR Provider 03/13/17 Caro Sandoval NP [address] [place] [address] Historical LMR Provider 03/13/17 Renee Mercedes MD [address] [place] [address] Historical LMR Provider 03/13/17 documented as of this encounter Additional Source Comments The information contained in this document represents components of the legal health record. It is not the complete legal health record.[facility]
--- OUTSIDE RECORDS SUMMARY | 2025-03-07 15:41 | XMS_ITS | Encounter Summary ---
Author Organization [facility] Address [address] [address] [facility] [address] [place] [address] Phone Care Team Providers Care Ultrasound Technician Name Role Phone David Seymour DO Unavailable Caro Sandoval RETAIL SHIFT MANAGER Unavailable [phone] Mikey Leong MD Unavailable [phone] Renee Mercedes MD Unavailable Aidee Valladares RETAIL SHIFT MANAGER Unavailable [phone] Arnaldo Dillon MD Unavailable Anahi Persaud RDCS Unavailable [email or web address] Ana Cristina Parmar MD Unavailable [phone] Philip Stewart MD Unavailable [phone] David Seymour DO Primary Care Provider [phone] Encounter Details Date Type Department Care Team (Late st Contact Info) Description 04/22/2018 Procedure Pass [facility] Endoscopy Admitting Dept Virtual Department [address] [place] [address] Social History Tobacco Use Types Packs/Day Years [...] 2:00 PM EST Office Visit [facility] Surgery [address] [place] [address] Douglas Reyes MD [address] [place] [address] [email or web address] documented as of this encounter Visit Diagnoses Not on filedocumented in this encounter Care Teams Ultrasound Technician Relationship Specialty Start Date End Date David Seymour DO PCP - General Internal Medicine 04/06/17 David Seymour DO Historical LMR Provider 03/13/17 Caro Sandoval, RETAIL SHIFT MANAGER [address] [place] [address] [email or web address] Historical LMR Provider 03/13/17 Mikey Leong MD [address] [place] [address] [email or web address] Historical LMR Provider 03/13/17 05/31/21 Renee Mercedes MD [address] [place] [address] [address] [place] [address] [email or web address] Historical LMR Provider 03/13/17 Aidee Valladares, RETAIL SHIFT MANAGER [address] [place] [address] [email or web address] Historical LMR Provider 03/13/17 2 Arnaldo Dillon MD [address] [facility], [address] [place] [address] Historical LMR Provider 03/13/17 05/31/21 Anahi Persaud, RDCS [email or web address] Historical LMR Provider 03/13/17 05/31/21 Ana Cristina Parmar MD [address], [place] [address] Historical LMR Provider 03/13/17 2 Philip Stewart MD [address] [place] [address] Historical LMR Provider 03/13/17 2 documented as of this encounter Additional Source Comments The information contained in this document represents components of the legal health record. It is not the complete legal health record.[facility]
--- OUTSIDE RECORDS SUMMARY | 2025-03-07 15:41 | XMS_ITS | Encounter Summary ---
Author Organization [facility] Address [address] [address] Phone Care Team Providers Care Surgery Specialist Name Role Phone David Seymour DO Unavailable Caro Sandoval SECURITY SALES MANAGER Unavailable [phone] Mikey Leong MD Unavailable [phone] Renee Mercedes MD Unavailable Aidee Valladares SECURITY SALES MANAGER Unavailable Arnaldo Dillon MD Unavailable [phone] Anahi Persaud RDCS Unavailable [email or web address] Ana Cristina Parmar MD Unavailable [phone] Philip Stewart MD Unavailable [phone] David Seymour DO Primary Care Provider [phone] Encounter Details Date Type Department Care Team (Late st Contact Info) Description 03/21/2020 Ancillary Orders Virtual Department 30 [place] [address] David Seymour DO [address] [facility] [place] [address] [email or web address] Breast screening Social History Tobacco Use Types [...] Description 04/30/2025 2:00 PM EST Office Visit [facility] Plastic Surgery [address] [place] [address] Douglas Reyes MD [address] [place] [address] [email or web address] documented as of this encounter Results * BI MAMMOGRAM SCREENING WITH TOMOSYNTHESIS WITH CAD (BILATERAL) (05/23/2020 8:08 AM EST) Anatomical Region Laterality Modality Breast Left, Breast Right, Breast Bilateral Bila teral Mammography 05/23/2020 9:08 AM EST Impressions 05/23/2020 9:13 AM EST No mammographic signs of malignancy. Annual screening is recommended. BI-RADS CATEGORY: 1 - Negative. DENSITY: There are scattered fibroglandular densities. Narrative 05/23/2020 9:13 AM EST Bilateral mammography is performed in conjunction with computed aided detection. 3-D tomography along with 2-D C view imaging was also performed. Comparison made to previous dated as far back as 04/23/2014 and as recent as 05/19/2019. No suspicious masses, areas of architectural distortion or suspicious microcalcifications. Procedure Note Sudeep Chatterjee MD - 05/23/2020 Bilateral mammography is performed in conjunction with computed aideddetection. 3-D tomography along with 2-D C view imaging was alsoperformed. Comparison made to previous dated as far back as 04/23/2014 andas recent as 05/19/2019. No suspicious masses, areas of architectural distortion or suspiciousmicrocalcifications. IMPRESSION: No mammographic signs of malignancy. Annual screening is recommended. BI-RADS CATEGORY: 1 - Negative. DENSITY: There are scattered fibroglandular densities. David Seymour DO IMG MG EXAMS Final Result documented in this encounter Visit Diagnoses Diagnosis Breast screening Breast screening, unspecified Breast screening Breast screening, unspecified documented in this encounter Care Teams Surgery Specialist Relationship Specialty Start Date End Date David Seymour DO PCP - General Internal Medicine 04/06/17 Lion David ChungDO Historical LMR Provider 03/13/17 Caro Sandoval SECURITY SALES MANAGER [address] [place] [address] [email or web address] Historical LMR Provider 03/13/17 Mikey Leong MD [address] [place] [address] [email or web address] Historical LMR Provider 03/13/17 05/31/21 Renee Mercedes MD [address] [place] [address] [email or web address] Historical LMR Provider 03/13/17 Aidee Valladares SECURITY SALES MANAGER [address] [place] [address] [email or web address] Historical LMR Provider 03/13/17 2 Arnaldo Dillon MD [address] [facility], 2[address] [place] [address] Historical LMR Provider 03/13/17 05/31/21 Anahi Persaud, CS Historical LMR Provider 03/13/17 05/31/21 Ana Cristina Parmar MD [address] [address] Historical LMR Provider 03/13/17 2 Philip Stewatr MD [address] [place] [address] Historical LMR Provider 03/13/17 2 documented as of this encounter Additional Source Comments The information contained in this document represents components of the legal health record. It is not the complete legal health record.[facility]
--- OUTSIDE RECORDS SUMMARY | 2025-03-07 15:41 | XMS_ITS | Encounter Summary ---
Author Organization [facility] Address [address] [facility] [address] [place] [address] Phone Care Team Providers Care Wire Fence Erector Name Role Phone David Seymour DO Unavailable Caro Sandoval HEALTHCARE LIAISON Unavailable [phone] Mikey Leong MD Unavailable [phone] Renee Mercedes MD Unavailable Aidee Valladares HEALTHCARE LIAISON Unavailable Arnaldo Dillon MD Unavailable Anahi Persaud RD Unavailable [email or web address] Ana Cristina Parmar MD Unavailable + [phone] Philip Stewart MD Unavailable [phone] David Seymour DO Primary Care Provider [phone] Encounter Details Date Type Department Care Team (Latest Contact Info) Description 01/15/2020 Ancillary Orders Non-Invasive Cardiology [address] [place] [address] Joana Bradshaw PA [address] [facility] [address] [place], [place] [id number] Abnormal electrocardiogram (ECG) (EKG) Social History Tobacco Use Types Packs/Day Years [...] 04/30/2025 2:00 PM EST Office Visit [facility] Plastic Surgery [address] [place] [address] Douglas Reyes MD [address] [place] [address], [address] [address] [email or web address] documented as of this encounter Results * NC Stress Result for Nuclear Stress Test (01/15/2020 11:43 AM EDT) Max BP Systolic 178 mmHg [facility] Max BP Diastolic 64 mmHg [facility] Max HR 173 BPM [facility] Resting HR 55 BPM [facility] Resting BP Systolic 122 mmHg [facility] Resting BP Diastolic 72 mmHg [facility] Peak METS 17.2 METS [facility] Peak HR 157 BPM [facility] Anatomical Region Laterality Modality Heart Other 01/15/2020 9:57 AM EDT 01/15/2020 11:41 AM EDT Narrative 01/16/2020 10:16 AM EDT Response to Stress The patient exercised for minutes seconds, achieving 17.2 METS at peak exercise. Baseline blood pressure was 122/72 mmHg, and baseline heart rate was 55 bpm. The patient achieved a peak heart rate of 157 bpm, which is% of their maximum predicted heart rate. REPORT- Pt exercised for 13:11 min on a ROXY protocol achieving 17.20 METS. Test terminated due to fatigue. Baseline resting HR was 55. Max heart rate achieved was 173 (109% MPHR). 1. EKG - Baseline EKG showed sinus bradycardia with nonspecific ST-T wave abnormalities. When the patient stood up, there were diffuse horizontal to downsloping ST depressions. During exercise, there was an exaggeration of baseline abnormalities. 2. SYMPTOMS - No chest pain. During exercise, patient reported palpitations that resolved spontaneously. 3. EXERCISE PHYSIOLOGY - Normal BP response to exercise. Excellent functional capacity for age. 4. ARRHYTHMIAS - There were isolated PVCs, runs of ventricular bigeminy and ventricular couplets. There were brief atrial runs lasting 1-2 seconds at peak exercise. Conclusion - EKGs are non-diagnostic for ischemia due to abnormal baseline. Nuclear images pending and will be reported separately. Aminah Archuleta PA-C with Dr. Mathews. us Joana YAP CV NM CARDIAC Final Resul t documented in this encounter Visit Diagnoses Diagnosis Abnormal electrocardiogram (ECG) (EKG) Abnormal electrocardiogram (ECG) (EKG) documented in this encounter Care Teams Wire Fence Erector Relationship Specialty Start Date End Date David Seymour DO PCP - General Internal Medicine 04/06/17 David Seymour DO Historical LMR Provider 03/13/17 Caro Sandoval HEALTHCARE LIAISON [address] [place] [address] [email or web address] Historical LMR Provider 03/13/17 Mikey Leong MD [address] [place] [address] [email or web address] Historical LMR Provider 03/13/17 05/31/21 Renee Mercedes MD [address] [place] [address] Historical LMR Provider 03/13/17 Aidee Valladares HEALTHCARE LIAISON [address] [place] [address] [email or web address] Historical LMR Provider 03/13/17 2 Arnaldo Dillon MD [address] [facility], [address] [place] [address] [email or web address] Historical LMR Provider 03/13/17 05/31/21 Anahi Persaud, RDCS [email or web address] Historical LMR Provider 03/13/17 05/31/21 Ana Cristina Parmar MD [address] [address] Historical LMR Provider 03/13/17 2 Philip Stewart MD [address] [place] [address] Historical LMR Provider 03/13/17 2 documented as of this encounter Additional Source Comments The information contained in this document represents components of the legal health record. It is not the complete legal health record.[facility]
--- OUTSIDE RECORDS SUMMARY | 2025-03-07 15:41 | XMS_ITS | Encounter Summary ---
Author Organization [facility] Address [address] [facility] [address] [place] [address] Phone Care Team Providers Care Heel Brusher Name Role Phone David Seymour DO Unavailable Caro Sandoval HEAVY EQUIPMENT SERVICE MANAGER Unavailable [phone] Mikey Leong MD Unavailable Renee Mercedes MD Unavailable [phone] Aidee Valladares HEAVY EQUIPMENT SERVICE MANAGER Unavailable Arnaldo Dillon MD Unavailable Anahi Persaud [facility] Unavailable [email or web address] Ana Cristina Parmar MD Unavailable + [phone] Philip Stewart MD Unavailable [phone] David Seymour DO Primary Care Provider [phone] Reason for Referral * MRI/CAT Scan - Closed Specialty Diagnoses / Procedures Referred By Contac t Referred To Contact Radiology Diagnoses Abnormal electrocardiogram (ECG) (EKG) Procedures NC Myocardial Perfusion Pharmacologic Stress Multiple Joana Bradshaw PA Phone: tel: fax: Referral ID Status Reason Start Date Expiration Date Visits Re quested Visits Authorized [id number] Closed 01/11/2020 07/09/2020 1 1 Encounter Details Date Type Department Care Team (Latest Contact Info) Description 01/09/2020 Transcribe Orders Virtual Department [address] [place] [address] Joana Bradshaw PA [address] [place] [address] [place] [address] Abnormal electrocardiogram (ECG) (EKG) (Primary Dx) Social History Tobacco Use Types [...] 04/30/2025 2:00 PM EST Office Visit [facility] Plastic Surgery [address] [place] [phone] Douglas Reyes MD [address] [place] [place] [address] [email or web address] documented as of this encounter Results * NC Myocardial Perfusion Pharmacologic Stress Multiple (01/15/2020 11:18 AM EDT) Anatomical Region Laterality Modality Heart, Vascular Nuclear Medicine 01/15/2020 11:3 1 AM EDT Impressions 01/15/2020 11:40 AM EDT No scintigraphic evidence of stress-induced ischemia. The LVEF was within normal limits at approximately 74%. POS [id number] Narrative 01/15/2020 11:40 AM EDT COMPARISON: None DOSE: 9.7 mCi of technetium 99m sestamibi at rest and 31.5 mCi of Tc99m Sestamibi subsequently in the day during treadmill stress TECHNIQUE: SPECT images were obtained, gated at stress. FINDINGS: Left ventricular cavity size is felt to be within normal limits. There seems to be essentially physiologic tracer distribution throughout the left ventricular myocardium at both stress and rest when allowing for what may reflect an element of breast attenuation in the anteroseptal region. No reversible perfusion defects are identified. No focal abnormality of myocardial thickening or wall motion was detected on gated imaging, and the LVEF was calculated at approximately 74%. The TID ratio was within normal limits at 1.03 Procedure Note Waldemar Sanchez MD - 01/15/2020 COMPARISON: None DOSE: 9.7 mCi of technetium 99m sestamibi at rest and 31.5 mCi of [id number] subsequently in the day during treadmill stress TECHNIQUE: SPECT images were obtained, gated at stress. FINDINGS: Left ventricular cavity size is felt to be within normal limits. Thereseems to be essentially physiologic tracer distribution throughout theleft ventricular myocardium at both stress and rest when allowing for whatmay reflect an element of breast attenuation in the anteroseptal region.No reversible perfusion defects are identified. No focal abnormality ofmyocardial thickening or wall motion was detected on gated imaging, andthe LVEF was calculated at approximately 74%. The TID ratio was withinnormal limits at 1.03 IMPRESSION: No scintigraphic evidence of stress-induced ischemia. The LVEF was withinnormal limits at approximately 74%. POS [id number] us Joana YAP CV NM CARDIAC Final Resul t documented in this encounter Visit Diagnoses Diagnosis Abnormal electrocardiogram (ECG) (EKG)- Primary Abnormal electrocardiogram (ECG) (EKG) documented in this encounter Care Teams Heel Brusher Relationship Specialty Start Date End Date David Seymour DO PCP - General Internal Medicine 04/06/17 David Seymour DO Historical LMR Provider 03/13/17 Caro Sandoval NP [address] [place] [address] [email or web address] Historical LMR Provider 03/13/17 Mikey Leong MD [address] [place] [address] [email or web address] Historical LMR Provider 03/13/17 05/31/21 Renee Mercedes MD [address] [place] [address], [address] [place] [address] Historical LMR Provider 03/13/17 Aidee Valladares NP [address] [place] [address] [email or web address] Historical LMR Provider 03/13/17 2 Arnaldo Dillon MD [address] [place] [address], [address] [place] [address] Historical LMR Provider 03/13/17 05/31/21 Anahi Persaud, RDCS Historical LMR Provider 03/13/17 05/31/21 Ana Cristina Parmar MD [address] [address] Historical LMR Provider 03/13/17 2 Philip Stewart MD [address] [place] [phone] Historical LMR Provider 03/13/17 2 documented as of this encounter Additional Source Comments The information contained in this document represents components of the legal health record. It is not the complete legal health record.[facility]
--- OUTSIDE RECORDS SUMMARY | 2025-03-07 15:41 | XMS_ITS | Clinical Summary ---
Author Organization [facility] Address [address] [place] [address] Phone Care Team Providers Care Dietitian Teaching Name Role Phone Sheila Zaldivar DO Unavailable Caro Sandoval JOURNEYMAN GLAZIER Unavailable [phone] Renee Mercedes MD Unavailable [phone] Sheila Zaldivar DO Primary Care Provider [phone] Allergies Active Allergy Reactions Criticality Noted Date Comments Latex, Natural Rubber Rash Low 08/18/2017 Nickel Rash Low 08/18/2017 Hydrocodone-Acetaminophen Headaches 08/18/2017 Medications biotin 1 mg tablet Take 1,000 mcg by mouth 3 (three) times a day. Active CALCIUM ORAL Take by mouth. Ac tive multivit with minerals/lutein (MULTIVITAMIN 50 PLUS ORAL) multivitamin Act hola VITAMIN B COMPLEX ORAL Take by mouth. Ac tive calcium-vits T3-O-U0-mineral s 166.75 mg- 166.75 unit Cap calcium qd Active tretinoin (RETIN-A) 0.05 % cream APPLY CREAM TOPICALLY AT BEDTIME NEEDED 0 Active cetirizine (ZYRTEC) 10 MG tablet Take 1 tablet (10 mg total) by mouth daily. 30 tablet 5 1 Active Additional Information Patient not taking.Reported on 07/14/2024 sod bicarb-sod chlor-neti pot pkdv 1 kit by sinus irrigation route daily. 1 each 2 Active escitalopram oxalate (LEXAPRO) 5 MG tablet Take 1 tablet every day by oral route for 90 days. 3 Active famotidine (PEPCID) 40 MG tablet 3 Active albuterol 90 mcg/actuation inhaler INHALE 2 PUFFS EVERY 4 HOURS BY INHALATION ROUTE. 3 Active ciprofloxacin HCl (CIPRO) 500 MG tablet Take 1 tablet by mouth 2 (two) times a day. 4 Active desonide (DESOWEN) 0.05 % ointment APPLY SPARINGLY ENOUGH TO COVER TOPICALLY TWICE A DAY FOR 2 WEEKS 3 Active triamcinolone acetonide 0.025 % cream APPLY TWICE DAILY NEEDED FOR ITCHY SKIN 3 Active estradioL (ESTRACE) 0.01 % (0.1 mg/gram) vaginal creamIndication s:Menopausal vaginal dryness Place 2 g vaginally nightly at bedtime. Use 2-3 times week 42.5 g 1 5 Active Active Problems Problem Noted Date Diagnosed Date Frequent urination 07/02/2023 Assessment & Plan (07/02/2023 10:55 AM EST): A: Frequent Urination UA shows trace blood only Likely related to Atrohpic Vaginitis d/t Postmenopausal state P: Plan topical estrogen Osteopenia 09/12/2021 01/27/2023 Atrophic vaginitis 03/25/2021 Assessment & Plan (07/14/2024 9:54 AM EST): Continue Estrace cream - reviewed how to use by applying with fingers instead of with applicator Assessment & Plan (07/02/2023 10:56 AM EST): We discussed that hypoestrogen can sometimes cause urinary frequency and can also predispose to UTI Most recent UA was not reflexed to culture, so maybe more related to low estrogen effect Recommend using estradiol cream nightly for 2 weeks then use twice a week We reviewed that topical low dose estrogen cream shoul not elevate levels in blood to cause systemic side effects - after discussion she agrees to try Follow up in 6 months for reassessment or PRN Assessment & Plan (03/25/2021 10:16 AM EDT): We reviewed strategies for reducing vaginal dryness, including lube, unscented products only/minimal soap, vaginal estrogen. Verito opts to try vaginal estrogen cream; usage reviewed and rx sent. Allergic rhinitis 07/01/2020 Assessment & Plan (05/30/2021 10:49 AM EST): Markedly improved. Continue current regimen of daily sinus rinse/NetiPot. Sample provided. Nasonex/Azelastine seasonally as needed. Cetirizine as needed. Follow-up as needed. Assessment & Plan (10/02/2020 9:27 AM EDT): Allergic rhinitis, triggered by molds. Suspect specific triggers not included on current aeroallergens skin testing panel. Continue symptomatic treatment with regimen that includes nasal steroids, nasal antihistamines, oral antihistamines, leukotriene inhibitors and saline nasal rinse. Given samples of Alma pot and sinus rinse bottle, encouraged use in the evening with increasing exposure. While montelukast typically taken year-round or seasonally, if patient finds helpful can use on an intermittent basis similar to antihistamines. Regular use of nasal steroids and nasal antihistamines also most beneficial. Discussed role of allergy immunotherapy, though given excellent current symptomatic control, no indication for treatment at this time. We will see again with fall allergy season. Assessment & Plan (07/01/2020 9:27 AM EST): Predominant symptoms all mostly consistent with development of environmental allergic rhinitis and rhinoconjunctivitis, though cannot exclude concurrent chronic sinusitis. Recommend start with conservative therapy and work-up as outlined below. Start trial of daily Zyrtec and nasal steroids, preferably Nasonex 2 sprays each side once daily. Consider trial of Breathe Right strips Check routine blood work for eosinophilia, total IgE, mold and house dust panel Plan for allergy skin testing in approximately 4 weeks. Patient instructed to hold antihistamines 1 week prior to testing. May continue nasal steroids. Mold exposure 07/01/2020 Assessment & Plan (07/01/2020 9:25 AM EST): Signs and symptoms suggestive of mold allergy. However, should exclude development of nontype 1 hypersensitivity reaction such as hypersensitivity pneumonitis. Send blood work for hypersensitivity pneumonitis panel and Aspergillus antibodies. Neutropenia 07/01/2020 Assessment & Plan (07/01/2020 9:25 AM EST): Last CBC from prior November with mild neutropenia, with progressive leukopenia compared to prior. Unclear etiology. Checking a CBC as above. If persistently abnormal, would recommend hematology consultation. Palpitations 03/11/2020 Assessment & Plan (05/08/2020 2:44 PM EST): She was having palpitations due to PVCs. She is no longer really experiencing the palpitations and has not felt the need to start the diltiazem. She had a normal nuclear stress test and normal echocardiogram. She can start the diltiazem at any point that she feels that her palpitations are bothersome for her. She has a previously arranged appointment with Dr. Man in June which she would like to keep. Her monitor did show an incidental finding of a 9 beat run of VT. In the absence of symptoms, ischemia, or a structural cardiac issue, this is benign. Assessment & Plan (03/11/2020 11:16 AM EDT): I note it is likely her symptoms are related to her PVCs, ventricular bigeminy, ventricular couplets. We discussed that this is a benign phenomenon and not necessarily harmful to the heart or puts her at increased risk for cardiomyopathy. Given that she is symptomatic, I offered her the options of medical therapy. Given her slow resting heart rate, I suspect she will tolerate a calcium channel bernie better than a beta-bernie and if started on diltiazem 120 mg once daily. We will also get a loop monitor to document her burden of PVCs and to see if she has any other arrhythmias when she is symptomatic Encounters Date Type Department Care Team Description 12/06/2024 9:16 AM EDT - 12/06/2024 11:59 PM EDT Hospital Encounter [address] [address] System, Provider Not In, PhD Sheila Zaldivar, DO Discharge Disposition: Home or Self Care 06/14/2024 Procedure Pass [facility], [facility] [address] [place] [address] from Last 3 Months Immunizations Immunization Administration Dates Next Due COVID-19 (Pre-03/15) Pfizer Vaccine, mRNA, PF 09/26/2021 Influenza Quadrivalent MDCK Preservative Free IM 03/16/2019 Influenza Quadrivalent Prese rvative Free IM 02/28/2021,02/14/2020,03/16/2019,02/24,03/03/2017,03/06/2016,02/26/2012 Influenza Quadrivalent w/ Pr eservative IM 02/14/2020 Influenza Recombinant Bhavani valent Preservative Free IM 02/28/2021 Influenza, Unspecified Formulation 02/28/2022 Pneumococcal polysaccharide PPSV23 01/22/2009 Tdap 01/22/2009 Zoster recombinant 12/06/2020,09/27/2020 Zoster unspecified formulation 11/21/2020,2020 Family History Medical History Relation Comments Diverticulitis Brother Colon Burst CV disease Father Dementia Father Hypertension Father Diabetes mellitus Maternal Grandmother CV disease Maternal Uncle COPD Mother CV disease Mother Hypertension Mother CV disease Paternal Uncle Allergic rhinitis Neg Hx Asthma Neg Hx Breast cancer Neg Hx Relation Status Comments Brother Father Maternal Grandmother Maternal Uncle Mother Paternal Uncle Social History Tobacco Use Types Packs/Day Years [...] on file Sexual Orientation Not on file Last Filed Vital Signs Vital Sign Reading Time Taken Comments Blood Pressure 94/50 07/14/2024 9:21 AM EST Pulse 61 01/27/2023 9:22 AM EDT Temperature 36.3 C (97.4 F) 01/27/2023 9:22 AM EDT Respiratory Rate 17 01/27/2023 9:22 AM EDT Oxygen Saturation 98% 01/27/2023 9:22 AM EDT Inhaled Oxygen Concentration - - Weight 60.8 kg (134 lb) 07/14/2024 9:21 AM EST Height 162.6 cm (5' 4 ) 04/17/2024 2:33 PM EST Body Mass Index 23 04/17/2024 2:33 PM EST Plan of Treatment Upcoming Encounters Date Type Department Care Team (Late st Contact Info) Description 04/30/2025 2:00 PM EST Office Visit [facility] [address] [place] [id number] Douglas Reyes MD [address] [place] [address] [phone] Health Maintenance Due Date Last Done Comments DEPRESSION SCREENING 1969 COLOGUARD 2002 FIT TEST 2002 FOBT 2002 SIGMOIDOSCOPY 2002 VIRTUAL COLONOSCOPY 2002 Adult Td,Tdap Booster 01/22/2019 01/22/2009 INFLUENZA VACCINE (#1) 2024 , 02/19/2023, 03/02/2022, Additional history exists COVID-19 VACCINE ( season) 2025 02/23/2024, 02/19/2023, 03/02/2022, Additional history exists MAMMOGRAM 12/06/2025 12/06/2024, 07/23, 07/07/2022, Additional history exists COLONOSCOPY 04/22/2028 04/22/2018 COLORECTAL CANCER SCREENING 04/22/2028 LIPID PANEL 09/29/2029 09/29/2024, 04/0 06/2023, 08/07/2022, Additional history exists ZOSTER VACCINES Completed 12/06/2020, 070 05/2020, 09/27/2020, Additional history exists OSTEOPOROSIS SCREENING INITIAL (ONE-TIME) Completed 01/07/2022 PNEUMOCOCCAL VACCINES (50+ years) Completed 02/13/2023, 01/22/2009 RSV VACCINE Completed 06/04/2023 SMOKING STATUS SCREENING (Once After 26 Yrs) Completed 07/14/2024 HEPATITIS C SCREENING Completed 07/20/2024, 019 HEPATITIS A VACCINES Aged Out No long er eligible based on patient's age to complete this topic HIB VACCINES Aged Out No longer eligi ble based on patient's age to complete this topic MENINGOCOCCAL VACCINES (ACWY) Aged Out No longer eligible based on patient's age to complete this topic MENINGOCOCCAL VACCINES (B) Aged Out N o longer eligible based on patient's age to complete this topic Medical Devices Implanted Type Area Ticket Printer Device Identifier Shelf Expiration Date Model / Serial / Lot Left Shouler Procedures Procedure Name Priority Date/Time Associated Diagnosis Comments BI MAMMOGRAM SCREENING WITH TOMOSYNTHESIS WITH CAD (BILATERAL) Routine 12/06/2024 9:45 AM EDT Breast screening LIPID PANEL Routine 09/29/2024 7:06 AM EDT Routine general medical examination at a [facility] care facility HEPATITIS C ANTIBODY, QUALITATIVE Routine 07/20/2024 10:56 AM EST Abdominal pain, unspecified abdominal location Abnormal LFTs Abnormal liver scan BD DXA AXIAL (SPINE) WITH HIP Routine 01/07/2022 1:24 PM EDT Osteopenia, unspecified location Other specified disorders of bone density and structure, right shoulder ENDOSCOPY, COLON 04/22/2018 8:29 AM EST from Last 3 Months or Most Recently Relevant to Health Maintenance Results * BI MAMMOGRAM SCREENING WITH TOMOSYNTHESIS WITH CAD (BILATERAL) (12/06/2024 9:45 AM EDT) Anatomical Region Laterality Modality Breast Left, Breast Right, Breast Bilateral Bila teral Mammography 12/07/2024 7:46 AM EDT Impressions 12/07/2024 8:12 AM EDT No mammographic evidence of malignancy in either breast. Annual screening mammography is recommended. BI-RADS 1 NEGATIVE The patient will be notified of the results and recommendations. Narrative 12/07/2024 8:12 AM EDT BI MAMMOGRAM SCREENING WITH TOMOSYNTHESIS WITH CAD (BILATERAL) Additional patient information: Screening. COMPARISON: Comparison is made with relevant prior imaging. Breast composition: There are scattered areas of fibroglandular density. FINDINGS: No abnormal masses, suspicious calcifications, or other significant findings are identified mammographically in either breast. Procedure Note Sudeep Chatterjee MD - 12/07/2024 BI MAMMOGRAM SCREENING WITH TOMOSYNTHESIS WITH CAD (BILATERAL) Additional patient information: Screening. COMPARISON: Comparison is made with relevant prior imaging. Breast composition: There are scattered areas of fibroglandular density. FINDINGS: No abnormal masses, suspicious calcifications, or other significantfindings are identified mammographically in either breast. IMPRESSION: No mammographic evidence of malignancy in either breast. Annual screening mammography is recommended. BI-RADS 1 NEGATIVE The patient will be notified of the results and recommendations. us Sheila A Bigda DO IMG MG EXAMS Final Result * (ABNORMAL) Lipid panel (09/29/2024 7:06 AM EDT) HDL 102 mg/dL [facility] Comment: Interpretation <40 mg/dL: Low HDL cholesterol (major risk factor for CHD) Greater than or equal to 60 mg/dL: High HDL cholesterol ( negative risk factor for CHD) HDL - cholesterol is affected by a number of factors, e.g. smoking, excerise, hormones, sex and age. CHOLESTEROL 236 0 - 240 mg/dL [facility] TRIGLYCERIDES 65 30 - 160 mg/dL [facility] LDL 121 50 - 129 mg/dL [facility] Comment: LDL levels in terms of risk for coronary heart disease: <100 mg/dL: Optimal 100-129 mg/dL: Near or above optimal 130-159 mg/dL: Borderline high 160-189 mg/dL: High >190 mg/dL: Very High CARDIAC RISK RATIO 2.3(L) 3.3 - 4.4 [facility] Blood 09/29/2024 7:06 AM EDT 09/29/2024 7:11 AM EDT us Joana YAP LAB BLOOD ORDERABLES Final Result Performing Organization Address City/[facility]/ZIP Co de Phone Number [address] [address] * Hepatitis C antibody, qualitative (07/20/2024 10:56 AM EST) HCV NON-REACTIV E NON-REACTI VE [facility] Blood 07/20/2024 10:5 6 AM EST 07/20/2024 11:01 AM EST us Sudeep Castro MD LAB BLOOD ORDERABLES Final R esult Performing Organization Address [facility] de Phone Number [address] [address] * BD DXA AXIAL (SPINE) WITH HIP [...] bone mineral density was calculated at 0.599 gm/[id number] a T- score of -2.3 falling within [...] lumbar spine and bilateral hip bone density [id number]. us Joana YAP IMG BD BONE DENSITY DEXA Fi nal Result * ENDOSCOPY, COLON (04/22/2018 8:29 AM EST) Narrative Transcriptions Sudeep Castro MD - 04/22/2018 8:29 AM EST Patient Name: Verito Chapa Attending MD:: SUDEEP CASTRO MD Procedure Date: 04/22/2018 8:29 AM Date of : 1955 Age: 62 Admit Type: Outpatient Gender: Female Room: [place] [address] Referring MD: SHEILA ZALDIVAR DO Exam Type: Colonoscopy Indications: Screening for colorectal malignant neoplasm, Last colonoscopy: 2007 Medications: Monitored Anesthesia Care Procedure: Informed consent was obtained from the patient after discussion of the indications, limitations,alternatives, benefits, and risks of the procedure. Risksspecifically discussed include but are not limited to medication reactions, missed lesions, bleeding, perforation, orthe need for emergent surgery. Throughout the procedure, the patient's blood pressure, pulse, end-tidal CO2, and oxygen saturations were monitored continuously. The Olympus adult variable colonoscope [id number] #[id number] was introduced through the anus and advanced to the cecum, identified by the appendiceal orifice, IC valve and transillumination. The colonoscopy was performedwithout difficulty. The patient tolerated the procedure well.The quality of the bowel preparation was good. Complications: No immediate complications. Estimated blood loss:None. Findings: The perianal and digital rectal examinations werenormal. The rectum, recto-sigmoid colon, sigmoid colon,descending colon, splenic flexure, transverse colon, hepaticflexure, ascending colon, cecum, appendiceal orifice, ileocecal valve, rectum (on retroflexion) and ascending colon (on retroflexion) appeared normal. Impression: - The rectum, recto-sigmoid colon, sigmoid colon, descending colon, splenic flexure, transverse colon, hepatic flexure, ascending colon, cecum, appendiceal orifice and ileocecal valve are normal. - No specimens collected. Recommendation: - Discharge patient to home. - Resume previous diet. - Continue present medications. - Repeat colonoscopy in 10 years for screeningpurposes. SUDEEP CASTRO MD 04/22/2018 8:51:16 AM This report has been signed electronically. Number of Addenda: 0 Note Initiated On: 04/22/2018 8:29 AM Procedure Code(s): --- Professional --- 87585, Colonoscopy, flexible; diagnostic, including collection of specimen(s) by brushing or washing, when performed (separateprocedure) --- Technical --- 96668, Colonoscopy, flexible; diagnostic, including collection of specimen(s) by brushing or washing, when performed (separateprocedure) Diagnosis Code(s): --- Professional --- Z12.11, Encounter for screening for malignant neoplasm of colon --- Technical --- Z12.11, Encounter for screening for malignant neoplasm of colon CPT copyright 2016 [employer]. All rights reserved. The codes documented in this report are preliminary and upon fur storage clerk reviewmay be revised to meet current compliance requirements. [address] [place] [address] Sheila Zaldivar DO GI PROCEDURE ORDERABLES Final Re sult from Last 3 Months or Most Recently Relevant to Health Maintenance Insurance [facility] [place] [address] [place] [address] [place] [address] [place] [address] [place], [place] [address] Care Teams Dietitian Teaching Relationship Specialty Start Date End Date Sheila Zaldivar DO [email or web address] PCP - General Internal Medicine 04/06/17 Sheila Zaldivar DO [email or web address] Historical LMR Provider 03/13/17 Caro Sandoval NP [address] [place] [address] [email or web address] Historical LMR Provider 03/13/17 Renee Mercedes MD [address] [place] [address] [email or web address] Historical LMR Provider 03/13/17 Additional Source Comments The information contained in this document represents components of the legal health record. It is not the complete legal health record.[facility]
--- OUTSIDE RECORDS SUMMARY | 2025-03-07 15:41 | XMS_ITS | Encounter Summary ---
Author Organization [facility] Address [address] [place] [address] Phone Care Team Providers Care Residential Finish Carpenter Name Role Phone David Seymour DO Unavailable Caro Sandoval MONEY POSITION OFFICER Unavailable [phone] Mikey Leong MD Unavailable [phone] Renee Mercedes MD Unavailable Aidee Valladares MONEY POSITION OFFICER Unavailable Arnaldo Dillon MD Unavailable Anahi Persaud RDCS Unavailable [email or web address] Ana Cristina Parmar MD Unavailable [phone] Philip Stewart MD Unavailable [phone] David Seymour DO Primary Care Provider [phone] Encounter Details Date Type Department Care Team (Late st Contact Info) Description 05/02/2020 Transcribe Orders [facility] [address] [place] [address] Simin Kimble, CRUZ [address] [place] [address] Social History Tobacco Use Types Packs/Day Years [...] Description 04/30/2025 2:00 PM EST Office Visit [facility] Surgery [address] [place] [address] Douglas Reyes MD [address] [place] [address] [phone] [email or web address] documented as of this encounter Visit Diagnoses Not on filedocumented in this encounter Care Teams Residential Finish Carpenter Relationship Specialty Start Date End Date David Seymour DO PCP - General Internal Medicine 04/06/17 David Seymour DO Historical LMR Provider 03/13/17 Caro Sandoval MONEY POSITION OFFICER [address] [place] [address] Historical LMR Provider 03/13/17 Mikey Leong MD [address] [place] [address] [email or web address] Historical LMR Provider 03/13/17 05/31/21 Renee Mercedes MD [address] [place] [address] Historical LMR Provider 03/13/17 Aidee Valladares MONEY POSITION OFFICER [address] [place] [address] [email or web address] Historical LMR Provider 03/13/17 2 Arnaldo Dillon MD [address] [facility], [address] [place] [address] Historical LMR Provider 03/13/17 05/31/21 Anahi Persaud, RDCS Historical LMR Provider 03/13/17 05/31/21 Ana Cristina Parmar MD [address], [place] [address] Historical LMR Provider 03/13/17 2 hPilip Stewart MD [address] [place] [address] Historical LMR Provider 03/13/17 2 documented as of this encounter Additional Source Comments The information contained in this document represents components of the legal health record. It is not the complete legal health record.[facility]
[2025-03-07 18:13] LABS: MANUAL DIFF FLAG NO
[2025-03-07 18:30] LABS: Alanine Aminotransferase 26 U/L (0-31); Albumin Level 4.8 g/dL (3.5-5.0); Alkaline Phosphatase 82 U/L (39-117); Anion Gap 11 (12-20); Aspartate Amino Transferase 34 U/L (5-31); Blood Urea Nitrogen 14 mg/dL (9-16); Calcium 9.7 mg/dL (8.4-10.2); Carbon Dioxide 26 mmol/L (22-29); Chloride 105 mmol/L (96-108); Estimated Glomerular Filt Rate > 60; Iron 121 mcg/dL (30-160); Magnesium 2.1 mg/dL (1.6-2.6); Percent Iron Saturation 44 % (15-50); Potassium 4.4 mmol/L (3.3-5.1); Sodium 138 mmol/L (135-145); Total Iron Binding Capacity 274 mcg/dL (228-428); Total Protein 6.9 g/dL (6.5-8.0); Unsaturated Iron Binding 153 ug/dL
[2025-03-07 18:34] LABS: Hematocrit 43.2 % (37.0-47.0); Hemoglobin 14.8 g/dl (12.0-16.0); Imm Gran Abs Auto 0.01 X10*3/uL (0.00-0.03); Imm Gran Pct Auto 0.2 % (0.0-0.4); Lymphocytes Absolute Auto 1.7 X10*3/uL (1.2-4.9); Mean Corpuscular HGB Conc 34.3 g/dl (31.0-35.0); Mean Corpuscular Hemoglobin 33.6 pg (27.0-33.0); Mean Corpuscular Volume 98.0 fL (80.0-98.0); NRBC Abs Auto 0.000 X10*3/uL (0.0-0.012); NRBC Pct Auto 0.0 /100WBC (0.0-0.2); Platelet Count 210 X10*3/uL (160-400); Red Blood Count 4.41 X10*6/uL (4.20-5.50); White Blood Count 5.0 X10*3/uL (4.8-10.8)
[2025-03-07 18:51] LABS: Ferritin 51 ng/mL (10-250)
[2025-03-07 19:05] LABS: Folate 15.2 ng/mL (> or = 4.0); Vitamin B12 527 pg/mL (200-900)
== END 2025-03-07 12:21 | disposition home or self-care (01) ==
LOC: HO.MANLDS 12:20
PROVIDERS: Visit Provider Physician Assistant
DX: R07.89 Other chest pain (principal)
CPT/HCPCS: 36415; 80053; 82607; 82728; 82746; 83540; 83735; 84443; 85025; 85652; 86140

== ENCOUNTER → 2025-04-06 09:54 | Outpatient (REF) | payer MEDICARE, OTHER, SELFPAY ==
--- NOTE | 2025-04-06 10:01 | CA_ITS ---
Transthoracic Echocardiogram Patient (Last, First, Middle): Verito Chapa, Gender: Female Date of : 1955 Age: 69 Procedure Date: 04/06/2025 Procedure Type: Transthoracic Echocardiogram Location: OP Height: 162.56 cm Weight: 54.89 kg BSA: 1.58 m2 Heart Rate: 66 bpm BP: 100 / 65 mmHg Redrawer: OMAR Tobin MD: Joana YAP Welder Machine Operator: Tony Reyes MD Symptoms: CHEST PAIN Study Quality: Adequate ECG Rhythm: Arrhtyhmia Conclusions: - Essentially normal study Findings Left Ventricle Normal left ventricular size, thickness, and systolic function. The visually estimated ejection fraction is between 60-65%. Spectral Doppler is indicative of a normal filling pattern. Right Ventricle Normal right ventricular cavity size and systolic function. Atria Both atria are normal in size. There is no evidence of interatrial shunt. Aortic Valve Normal aortic valve structure and function. There is no aortic valve stenosis. There is no aortic valve regurgitation. Mitral Valve Normal mitral valve structure and function. There is trace mitral valve regurgitation. There is no mitral valve stenosis. Pulmonic Valve The pulmonic valve is likely normal. There is trace pulmonic valve regurgitation. Tricuspid Valve Normal tricuspid valve structure. There is trace tricuspid valve regurgitation. The right ventricular systolic pressure is normal. The right ventricular systolic pressure is 17 mmHg. Normal right atrial pressure. There is no evidence of pulmonary hypertension. Great Vessels All visible segments of the aorta are normal in size. The pulmonary artery was not well visualized. There is no dilatation of the ascending aorta measuring 2.90 cm. Venous The inferior vena cava is normal in size and collapses greater than 50% with inspiration. Pericardium/Pleural There is no evidence of pericardial effusion. Prior Study Comparison No prior study available for comparison. Measurements 2D Linear Measurements IVSd: 0.92 0.6-0.9/0.6-1.0 cm LVIDd: 4.82 3.9-5.3/4.2-5.9 cm LVIDd Index: 3.05 2.4-3.2/2.2-3.1 cm/m2 LVIDs: 2.59 2.0-3.6 cm LVPWd: 0.99 0.7-1.1 cm LA Diam: 3.10 2.7-3.8/3.0-4.0 cm LAIDs Index: 1.96 1.5-2.3 cm/m2 LV Mass: 199.99 67-162/88-224 g LV Mass Index: 126.58 43-95/49-115 g/m2 LVOT Diam: 1.90 3.0+(-)1.3 cm 2D Systolic Function EF 4C: 61.60 >55% EF 2C: 62.80 >55% EF BiP: 61.80 >55% Mitral Valve MV Pk E: 0.73 MV PK A: 0.67 MV Decel Time: 198.00 E/A: 1.10 E'Lateral: 12.50 E'Medial: 7.72 E/E' Med: 9.50 E/E' Lat: 5.80 PHT: 58.00 MVA PHT: 3.79 Decel Taney: 3.69 Aortic Valve AoV Pk Devon: 1.69 AoV Mn Devon: 1.17 AoV VTI: 0.39 AoV Pk Grad: 11.00 Aov Mn Grad: 6.00 AMAN Cont.VTI: 2.07 LVOT LVOT Pk Devon: 1.34 LVOT Mn Devon: 0.93 LVOT VTI: 0.28 LVOT Pk Grad: 7.00 LVOT Mn Grad: 4.00 LVOT Diam: 1.90 LVOT Area: 2.84 Diastolic Function MV Pk E: 0.73 MV Pk A: 0.67 E/A: 1.10 E'Medial: 7.72 E/E' Med: 9.50 E' Laterial: 12.50 E/E' Lat: 5.80 Right Ventricle TAPSE (mm): 24.60 TVS' Devon: 13.50 Tricuspid Valve TR Pk Devon: 1.84 TR Pk Grad: 14.00 RA Press: 3.00 RVSP: 17.00 Great Vessels Aorta Sinus of Valsalva: 2.80 2.0-3.5 cm Ao Asc: 2.90 2.1-3.4 cm Pulmonary Veins Pulm Vein S/D 1.40 Pulmonary Valve PV Pk Devon: 1.13 Peak PV Grad: 5.00 Updated in Other Vendor System with Status of Final Tony Reyes MD electronically signed on 04/06/2025 4:09:12 PM with status of Final
--- OUTSIDE RECORDS SUMMARY | 2025-04-06 11:17 | XMS_ITS | Encounter Summary ---
Author Organization [facility] Address [address] [facility] [address] [place] [address] Phone Care Team Providers Care Floor Renovator Name Role Phone David Seymour DO Unavailable Caro Sandoval DIRECTOR OF ANALYTICS Unavailable [phone] Mikey Leong MD Unavailable [phone] Renee Mercedes MD Unavailable Aidee Valladares DIRECTOR OF ANALYTICS Unavailable Arnaldo Dillon MD Unavailable Anahi Persaud RDCS Unavailable [email or web address] Ana Cristina Parmar MD Unavailable [phone] Philip Stewart MD Unavailable [phone] David Seymour DO Primary Care Provider [phone] Encounter Details Date Type Department Care Team (Latest Contact Info) Description 06/29/2019 Transcribe Orders Virtual Department 30 [place] [address] Simin Kimble, CRUZ [address] [place] [address] [email or web address] Dyspnea, unspecified type (Primary Dx) Social History [...] Description 04/30/2025 2:00 PM EST Office Visit [facility] Plastic Surgery [address] [place] [address] Douglas Reyes MD [address] [place] [address], [address] [place] [address] [email or web address] documented as of this encounter Results * XR CHEST PA AND LATERAL 2 VIEWS (06/29/2019 4:50 PM EST) Anatomical Region Laterality Modality Chest Radiographic Luz ging 06/29/2019 4:54 PM EST Impressions 06/29/2019 4:56 PM EST No acute cardiopulmonary process. POS [id number] Narrative 06/29/2019 4:56 PM EST XR CHEST [...] abnormality. IMPRESSION: No acute cardiopulmonary process. POS [id number] Simin Lamin PA-C IMG XR CHEST Final Result documented in this encounter Visit Diagnoses Diagnosis Dyspnea, unspecified type- Primary Dyspnea, unspecified type documented in this encounter Care Teams Floor Renovator Relationship Specialty Start Date End Date Jose Luiskristi David ChungDO PCP - General Internal Medicine 04/06/17 David Seymour DO Historical LMR Provider 03/13/17 Caro Sandoval, DIRECTOR OF ANALYTICS [address] [place] [address] [email or web address] Historical LMR Provider 03/13/17 Mikey Leong MD [address] [place] [address] [email or web address] Historical LMR Provider 03/13/17 05/31/21 Renee Mercedes MD [address] [place] [address] [email or web address] Historical LMR Provider 03/13/17 Aidee Valladares, DIRECTOR OF ANALYTICS [address] [place] [address] [email or web address] Historical LMR Provider 03/13/17 2 Arnaldo Dillon MD [address] [place] [address], [address] [place] [address] Historical LMR Provider 03/13/17 05/31/21 Anahi Persaud, RDCS Historical LMR Provider 03/13/17 05/31/21 Ana Cristina Parmar MD [address] [phone] Historical LMR Provider 03/13/17 2 Philip Stewart MD [address] [place], [place] [phone] Historical LMR Provider 03/13/17 2 documented as of this encounter Additional Source Comments The information contained in this document represents components of the legal health record. It is not the complete legal health record.[facility]
--- OUTSIDE RECORDS SUMMARY | 2025-04-06 11:18 | XMS_ITS | Encounter Summary ---
Author Organization [facility] Address [address] [facility] [address] [place] [address] Phone Care Team Providers Care Photographic Processor Name Role Phone David Seymour DO Unavailable Caro Sandoval MARKETING SERVICES REP Unavailable [phone] Mikey Leong MD Unavailable [phone] Renee Mercedes MD Unavailable Aidee Valladares MARKETING SERVICES REP Unavailable Arnaldo Dillon MD Unavailable [phone] Unavailable [email or web address] Ana Cristina Parmar MD Unavailable [phone] Philip Stewart MD Unavailable [phone] David Seymour DO Primary Care Provider [phone] Encounter Details Date Type Department Care Team (Late st Contact Info) Description 03/21/2020 Procedure Pass [facility], [address] [address] Social History Tobacco Use Types Packs/Day Years [...] 2:00 PM EST Office Visit [facility] Pl[facility] Surgery [address] [place] [address] Douglas Reyes MD [address] [place] [address] [email or web address] documented as of this encounter Visit Diagnoses Not on filedocumented in this encounter Care Teams Photographic Processor Relationship Specialty Start Date End Date David Seymour DO PCP - General Internal Medicine 04/06/17 David Seymour DO Historical LMR Provider 03/13/17 Caro Sandoval, MARKETING SERVICES REP [address] [place] [address] [email or web address] Historical LMR Provider 03/13/17 Mikey Leong MD [address] [place] [address] [email or web address] Historical LMR Provider 03/13/17 05/31/21 Renee Mercedes MD [address] [place] [phone] [email or web address] Historical LMR Provider 03/13/17 Aidee Valladares, MARKETING SERVICES REP [address] [place] [address] [email or web address] Historical LMR Provider 03/13/17 2 Arnaldo Dillon MD 22 [facility], [address] [place] [address] [email or web address] Historical LMR Provider 03/13/17 05/31/21 Anahi Persaud, RDCS [email or web address] Historical LMR Provider 03/13/17 05/31/21 Ana Cristina Parmar MD [address], [place] [address] Historical LMR Provider 03/13/17 2 Philip Stewart MD [address] [place] [address] Historical LMR Provider 03/13/17 2 documented as of this encounter Additional Source Comments The information contained in this document represents components of the legal health record. It is not the complete legal health record.[facility]
--- OUTSIDE RECORDS SUMMARY | 2025-04-06 11:18 | XMS_ITS | Encounter Summary ---
Author Organization [facility] Address [address] [address] Phone Care Team Providers Care Cradle Placer Name Role Phone David Seymour DO Unavailable Caro Sandoval TOP FLAVOR ATTENDANT Unavailable [phone] Mikey Leong MD Unavailable [phone] Renee Mercedes MD Unavailable Aidee Valladares TOP FLAVOR ATTENDANT Unavailable Arnaldo Dillon MD Unavailable Anahi Persaud RDCS Unavailable [email or web address] Ana Cristina Parmar MD Unavailable [phone] Philip Stewart MD Unavailable [phone] David Seymour DO Primary Care Provider [phone] Encounter Details Date Type Department Care Team (Late st Contact Info) Description 04/06/2019 Ancillary Orders Virtual Department [address] [place] [address] David Seymour DO [address] [facility] [place] [address] [email or web address] Breast screening Social History Tobacco Use [...] Description 04/30/2025 2:00 PM EST Office Visit [facility] Plastic Surgery [address] [place] [address] Douglas Reyes MD [address] [place] [address] documented as of this encounter Results * BI MAMMOGRAM SCREENING WITH TOMOSYNTHESIS WITH CAD (BILATERAL) (05/19/2019 7:40 AM EST) Anatomical Region Laterality Modality Breast Left, Breast Right, Breast Bilateral Bila teral Mammography 05/19/2019 8:18 AM EST Impressions 05/19/2019 8:20 AM EST No mammographic evidence of malignancy. BI-RADS CATEGORY: 1 - Negative. DENSITY: There are scattered fibroglandular densities. POS - [id number] Narrative 05/19/2019 8:20 AM EST Standard digital [...] and compared with multiple prior studies, most viniilaw52/26/2018, with utilization of computer-aided detection. The breasts are composed of scattered fibroglandular densities. Thestromal markings are essentially unchanged in overall appearance anddistribution. No dominant spiculated mass, suspicious clusteredmicrocalcifications, or focal zone of pathologic skin thickening orretraction are noted to have arisen in the interim. IMPRESSION: No mammographic evidence of malignancy. BI-RADS CATEGORY: 1 - Negative. DENSITY: There are scattered fibroglandular densities. POS - [id number] us David Seymour DO IMG MG EXAMS Final Result documented in this encounter Visit Diagnoses Diagnosis Breast screening Breast screening, unspecified Breast screening Breast screening, unspecified documented in this encounter Care Teams Cradle Placer Relationship Specialty Start Date End Date David Seymour DO [email or web address] PCP - General Internal Medicine 04/06/17 David Seyomur DO Historical LMR Provider 03/13/17 Caro Sandoval TOP FLAVOR ATTENDANT [address] [place] [address] [email or web address] Historical LMR Provider 03/13/17 Mikey Leong MD [address] [place] [address] [email or web address] Historical LMR Provider 03/13/17 05/31/21 Renee Mercedes MD [address] [place] [address] [email or web address] Historical LMR Provider 03/13/17 Aidee Valladares TOP FLAVOR ATTENDANT [address] [place] [address] [email or web address] Historical LMR Provider 03/13/17 2 Arnaldo Dillon MD 22 [facility], [address] [place] [address] [email or web address] Historical LMR Provider 03/13/17 05/31/21 Anahi Persaud, RDCS [email or web address] Historical LMR Provider 03/13/17 05/31/21 Ana Cristina Parmar MD [address], [place] [address] Historical LMR Provider 03/13/17 2 Philip Stewart MD [address] [place] [address] Historical LMR Provider 03/13/17 2 documented as of this encounter Additional Source Comments The information contained in this document represents components of the legal health record. It is not the complete legal health record.[facility]
--- OUTSIDE RECORDS SUMMARY | 2025-04-06 11:18 | XMS_ITS | Encounter Summary ---
Author Organization [facility] Address [address] [place] [address] Phone Care Team Providers Care Live In Housekeeper Nanny Name Role Phone David Seymour DO Unavailable Caro Sandoval HEALTHCARE MARKET CONSULTANT Unavailable [phone] Renee Mercedes MD Unavailable [phone] David Seymour DO Primary Care Provider [phone] Encounter Details Date Type Department Care Team (Latest Contact Info) Description 11/13/2024 Transcribe Orders [facility] Phleb Jacquelyn [address] [phone] Catherine Burt PA 10 [place] [address] Abdominal pain, unspecified abdominal location (Primary Dx) [...] Description 04/30/2025 2:00 PM EST Office Visit [facility] Plastic Surgery [address] [place] [address] Douglas Reyes MD [address] [place] [address] [email or web address] documented as of this encounter Results * Comprehensive metabolic panel (11/13/2024 3:47 PM EDT) SODIUM 138 133 - 146 mmol/L [facility] POTASSIUM 4.6 3.3 - 5.1 mmol/L [facility] CHLORIDE 100 96 - 108 mmol/L [facility] CO2 26 21 - 35 mmol/L [facility] BUN 17 6 - 19 mg/dL [facility] CREATININE 0.80 0.5 - 1.5 mg/dL [facility] GLUCOSE 97 70 - 99 mg/dL [facility] ALBUMIN 4.5 3.9 - 4.8 g/dL [facility] TOTAL PROTEIN 7.0 6.5 - 8.0 g/dL [facility] CALCIUM 10.1 8.4 - 10.3 mg/dL [facility] ALKALINE PHOSPHATASE 79 39 - 117 U/L [facility] TOTAL BILIRUBIN 0.6 0.0 - 1.2 mg/dL [facility] AST 31 0 - 37 U/L [facility] ALT 21 0 - 40 U/L [facility] GLOBULIN 2.5 1 - 4.8 g/dL [facility] EGFR 81 >59 mL/min/1.7 3m2 [facility] Comment:Estimated glomerular filtration rate calculated using the CKD-EPI refit equation. ANION GAP 17 10 - 20 mmol/L [facility] Blood 11/13/2024 3:47 PM EDT 11/13/2024 3:50 PM EDT us [facility] BLOOD BKR ORDERABLES Fi nal Result [address] [address] documented in this encounter Visit Diagnoses Diagnosis Abdominal pain, unspecified abdominal location- Primary documented in this encounter Care Teams Live In Housekeeper Nanny Relationship Specialty Start Date End Date David Seymour DO PCP - General Internal Medicine 04/06/17 David Seymour DO Historical LMR Provider 03/13/17 Caro Sandoval NP [address] [place] [address] Historical LMR Provider 03/13/17 Renee Mercedes MD [address] [place] [address], [facility] [address] [place] [address] [email or web address] Historical LMR Provider 03/13/17 documented as of this encounter Additional Source Comments The information contained in this document represents components of the legal health record. It is not the complete legal health record.[facility]
--- OUTSIDE RECORDS SUMMARY | 2025-04-06 11:18 | XMS_ITS | Encounter Summary ---
Author Organization [facility] Address [address] [place] [address] Phone Care Team Providers Care Hide Shaker Name Role Phone Lion David Chung DO Unavailable Caro Sandoval RECEPTIONIST TELEPHONE OPERATOR Unavailable [phone] Renee Mercedes MD Unavailable [phone] David Seymour DO Primary Care Provider [phone] Encounter Details Date Type Department Care Team (Latest Contact Info) Description 07/20/2024 Transcribe Orders [facility] Phleb Jacquelyn [address] 2[address] Floor [place], [place] [id number] Sudeep Cormier MD [address] [address] [email or web address] Abdominal pain, unspecified abdominal location (Primary Dx); [...] Description 04/30/2025 2:00 PM EST Office Visit [facility] Plastic Surgery [address] [place] [address] Douglas Reyes MD [address] [place] [address] [email or web address] documented as of this encounter Results * Hepatitis C antibody, qualitative (07/20/2024 10:56 AM EST) HCV NON-REACTIV E NON-REACTI VE [facility] Blood 07/20/2024 10:5 6 AM EST 07/20/2024 11:01 AM EST us Sudeep Cormier MD LAB BLOOD BKR ORDERABLES Fin al Result Performing Organization Address City/[facility]/ZIP Co de Phone Number [address] [address] * Hepatitis B surface antigen (07/20/2024 10:56 AM EST) HBV SURFACE ANTIGEN NON-REACTI VE NON-REACTI VE [facility] Blood 07/20/2024 10:5 6 AM EST 07/20/2024 11:01 AM EST us Sudeep Cormier MD LAB BLOOD BKR ORDERABLES Fin al Result Performing Organization Address [facility] Co de Phone Number [address] [address] * Hepatitis B surface antibody (07/20/2024 10:56 AM EST) HBV SURFACE ANTIBODY Negative [facility] Comment: Unvaccinated: Negative Vaccinated: Positive Blood 07/20/2024 10:5 6 AM EST 07/20/2024 11:01 AM EST us Sudeep Cormier MD LAB BLOOD BKR ORDERABLES Fin al Result Performing Organization Address [facility] de Phone Number [address] [address] * Hepatitis B core antibody, total (07/20/2024 10:56 AM EST) HEP B CORE AB, TOT NON-REACTI VE NON-REACTI VE [facility] Blood 07/20/2024 10:5 6 AM EST 07/20/2024 11:01 AM EST us Sudeep Cormier MD LAB BLOOD BKR ORDERABLES Fin al Result Performing Organization Address [facility] Phone Number [address] [address] * HEPATITIS A ANTIBODY, TOTAL (07/20/2024 10:56 AM EST) HAV TOTAL AB NON-REACTI VE NON-REACTI VE [facility] Blood 07/20/2024 10:5 6 AM EST 07/20/2024 11:01 AM EST us Sudeep Cormier MD LAB BLOOD BKR ORDERABLES Fin al Result Performing Organization Address [facility] de Phone Number [address] [address] * CPK (creatine kinase) (07/20/2024 10:56 AM EST) CREATINE KINASE 109 21 - 215 U/L [facility] Blood 07/20/2024 10:5 6 AM EST 07/20/2024 11:01 AM EST Sudeep Cormier MD LAB BLOOD BKR ORDERABLES Fin al Result [address] [address] * Comprehensive metabolic panel (07/20/2024 10:56 AM EST) SODIUM 137 133 - 146 mmol/L [facility] POTASSIUM 4.3 3.3 - 5.1 mmol/L [facility] CHLORIDE 101 96 - 108 mmol/L [facility] CO2 25 21 - 35 mmol/L [facility] BUN 15 6 - 19 mg/dL [facility] CREATININE 0.80 0.5 - 1.5 mg/dL [facility] GLUCOSE 96 70 - 99 mg/dL [facility] ALBUMIN 4.0 3.9 - 4.8 g/dL [facility] TOTAL PROTEIN 6.6 6.5 - 8.0 g/dL [facility] CALCIUM 9.3 8.4 - 10.3 mg/dL [facility] ALKALINE PHOSPHATASE 100 39 - 117 U/L [facility] TOTAL BILIRUBIN 0.3 0.0 - 1.2 mg/dL [facility] AST 33 0 - 37 U/L [facility] ALT 27 0 - 40 U/L [facility] GLOBULIN 2.6 1 - 4.8 g/dL [facility] EGFR 81 >59 mL/min/1.7 3m2 [facility] Comment:Estimated glomerular filtration rate calculated using the CKD-EPI refit equation. ANION GAP 15 10 - 20 mmol/L [facility] Blood 07/20/2024 10:5 6 AM EST 07/20/2024 11:01 AM EST us Sudeep Cormier MD LAB BLOOD BKR ORDERABLES Fin al Result [address] [address] * Celiac Screening Test Panel (07/20/2024 10:56 [...] ORDERABLES Final R esult Performing Organization Address City/[facility]/ZIP Co de Phone Number [facility] MED/[address] [place] [address] * (ABNORMAL) CBC (07/20/2024 10:56 AM EST) WBC 4.02 4.00 - 11.00 K/uL [facility] RBC 3.98(L) 4.00 - 5.20 M/uL [facility] HGB 13.4 12.0 - 16.0 g/dL [facility] HCT 38.4 36.0 - 46.0 % [facility] PLT 249 150 - 450 K/uL [facility] MCV 96.5 80.0 - 100.0 fL [facility] MCH 33.7(H) 27.0 - 31.0 pg [facility] MCHC 34.9 32.0 - 36.0 g/dL [facility] RDW 12.3 11.5 - 14.5 % [facility] MPV 11.0 8.4 - 12.0 fL [facility] NRBC 0.00 0.00 /100 WBCs [facility] ABSOLUTE NRBC 0.00 0.00 K/uL [facility] Blood 07/20/2024 10:5 6 AM EST 07/20/2024 11:01 AM EST us Sudeep Cormier MD LAB BLOOD BKR ORDERABLES Fin al Result Performing Organization Address City/[facility]/ZIP Co de Phone Number [facility] [address] [place] [address] * Smooth Muscle Antibody (07/20/2024 10:56 AM EST) SMOOTH MUSCLE AB POSITIVE AT 1:20 [facility] Comment: Performing Pathologist, Sunil Ortega M.D., Ph.D. [id number] Normal: Negative at 1:20 Blood 07/20/2024 10:5 6 AM EST 07/20/2024 11:01 AM EST Sudeep Cormier MD LAB BLOOD ORDERABLES Final R esult Performing Organization Address City/[facility]/ZIP Co de Phone Number [address] [address] * Antinuclear antibody (JANNIE) (07/20/2024 10:56 AM EST) JANNIE SCREEN ON HEP 2 Negative Negative [facility] Blood 07/20/2024 10:5 6 AM EST 07/20/2024 11:01 AM EST Sudeep Cormier MD LAB BLOOD BKR ORDERABLES Fin al Result Performing Organization Address [facility] Co de Phone Number [address] [address] * Anti-Mitochondrial Antibody (AMA) (07/20/2024 10:56 AM EST) MITOCHONDRIAL AB NEGATIVE AT 1:20 [facility] Comment: Performing Pathologist, Sunil Ortega M.D., Ph.D. [id number] Normal: Negative at 1:20 Blood 07/20/2024 10:5 6 AM EST 07/20/2024 11:01 AM EST Sudeep Cormier MD LAB BLOOD ORDERABLES Final R esult Performing Organization Address [facility] Co de Phone Number [address] [address] * AFP (non-maternal specimens) (07/20/2024 10:56 AM EST) AFP (NON-MATERNAL) 6.4 <7.9 ng/mL [facility] Comment: Test Methodology Yany [id number] Patient results determined by assays using different manufacturers or methods may not be comparable. Blood 07/20/2024 10:5 6 AM EST 07/20/2024 11:01 AM EST us Sudeep Cormier MD LAB BLOOD BKR ORDERABLES Fin al Result [address] [address] documented in this encounter Visit Diagnoses Diagnosis Abdominal pain, unspecified abdominal location- Primary Abnormal LFTs Abnormal liver scan Nonspecific abnormal results of liver function study documented in this encounter Care Teams Hide Shaker Relationship Specialty Start Date End Date David Seymour DO PCP - General Internal Medicine 04/06/17 David Seymour DO Historical LMR Provider 03/13/17 Caro Sandoval NP [address] [place] [address] Historical LMR Provider 03/13/17 Renee Mercedes MD [address] [place] [address] Historical LMR Provider 03/13/17 documented as of this encounter Additional Source Comments The information contained in this document represents components of the legal health record. It is not the complete legal health record.[facility]
--- OUTSIDE RECORDS SUMMARY | 2025-04-06 11:18 | XMS_ITS | Encounter Summary ---
Author Organization [facility] Address [address] [place] [address] Phone Care Team Providers Care Commissary Helper Name Role Phone David Seymour DO Unavailable Caro Sandoval RADIOLOGY SCHEDULER Unavailable [phone] Renee Mercedes MD Unavailable [phone] David Seymour DO Primary Care Provider [phone] Encounter Details Date Type Department Care Team (Late st Contact Info) Description 06/14/2024 Procedure Pass [facility], [address] [address] Social History Tobacco Use Types Packs/Day Years [...] Description 04/30/2025 2:00 PM EST Office Visit [facility] Plastic Surgery [address] [place] [address] Douglas Reyes MD [address] [place] [address] documented as of this encounter Visit Diagnoses Not on filedocumented in this encounter Care Teams Commissary Helper Relationship Specialty Start Date End Date David Seymour DO PCP - General Internal Medicine 04/06/17 David Seymour DO Historical LMR Provider 03/13/17 Caro Sandoval NP [address] [place] [address] Historical LMR Provider 03/13/17 Renee Mercedes MD [address] [place] [address] Historical LMR Provider 03/13/17 documented as of this encounter Additional Source Comments The information contained in this document represents components of the legal health record. It is not the complete legal health record.[facility]
--- OUTSIDE RECORDS SUMMARY | 2025-04-06 11:18 | XMS_ITS | Encounter Summary ---
Author Organization [facility] Address [address] [place] [address] Phone Care Team Providers Care Retail Management Keyholder Name Role Phone David Seymour DO Unavailable Caro Sandoval BALLOON DIPPER Unavailable [phone] Renee Mercedes MD Unavailable [phone] David Seymour DO Primary Care Provider [phone] Reason for Referral * MRI/CAT Scan - Closed Specialty Diagnoses / Procedures Referred By Contac t Referred To Contact Radiology Diagnoses Right knee pain, unspecified chronicity Procedures MRI Knee (Right) CHG MRI LOWER EXTREM JT, W/O CONTRAST Joana Bradshaw PA [address] [facility] [place] [address] [place] [address] Phone: tel: fax: Referral ID Status Reason Start Date Expiration Date Visits Re quested Visits Authorized [id number] Closed 03/08/2024 05/07/2024 1 1 Encounter Details Date Type Department Care Team (Latest Contact Info) Description 03/10/2024 Transcribe Orders Virtual Department [address] [place] [address] Joana Bradshaw PA [address] [facility] [place] [address] [place] [address] Right knee pain, unspecified chronicity (Primary Dx) [...] Description 04/30/2025 2:00 PM EST Office Visit [facility] Plastic Surgery [address] [place] [address] Douglas Reyes MD [address] [place] [address] [email or web address] documented as of this encounter Results * [...] chronicity documented in this encounter Care Teams Retail Management Keyholder Relationship Specialty Start Date End Date David Seymour DO PCP - General Internal Medicine 04/06/17 David Seymour DO Historical LMR Provider 03/13/17 Caro Sandoval NP [address] [place] [address] [email or web address] Historical LMR Provider 03/13/17 Renee Mercedes MD [address] [place] [id number] [email or web address] Historical LMR Provider 03/13/17 documented as of this encounter Additional Source Comments The information contained in this document represents components of the legal health record. It is not the complete legal health record.[facility]
--- OUTSIDE RECORDS SUMMARY | 2025-04-06 11:18 | XMS_ITS | Encounter Summary ---
Author Organization [facility] Address [address] [place] [address] Phone Care Team Providers Care Chemical Pathologist Name Role Phone David Seymour DO Unavailable Caro Sandoval MANAGER MARKET RESEARCH Unavailable [phone] Renee Mercedes MD Unavailable [phone] David Seymour DO Primary Care Provider [phone] Encounter Details Date Type Department Care Team (Latest Contact Info) Description 01/28/2023 Transcribe Orders [facility] Phleb Jacquelyn [address] [id number] Eliana Berry, MANAGER MARKET RESEARCH [address] [place] [address] Change in bowel habits (Primary Dx) Social [...] EST Office Visit [facility]astic Surgery [address] [place] [address] Douglas Reyes MD 40 [facility], [address] [address] [email or web address] documented as of this encounter Results * Ova and parasites, stool (02/02/2023 5:30 AM EDT) Parasitic exam FINAL 3 1109 [facility] DPT OF LAB MED AND PAT+ Comment: (NOTE) SOURCE: STOOL, STLP OVA AND PARASITE, MICROSCOPY, F FINAL No parasites seen. Cryptosporidium, Cyclospora, and microsporidia are not readily detected by this method. Single negative specimen does not rule out parasitic infection. Stool (Stool) 02/02/2023 5:3 0 AM EDT 02/02/2023 7:20 AM EDT Eliana Berry MANAGER MARKET RESEARCH LAB BODY FLUIDS AND STOOL ORDERABLES Final Result [facility] DPT OF LAB MED AND PAT+ [address] [place] [address] * Giardia antigen screen (02/02/2023 5:30 AM EDT) GIARDIA ANTIGEN Negative Negative [facility] DPT OF LAB MED AND PAT+ Comment: (NOTE) ADDITIONAL INFORMATION Test Performed by Enzyme Immunoassay. Stool (Stool) 02/02/2023 5:3 0 AM EDT 02/02/2023 7:20 AM EDT us Eliaan Berry NP LAB BODY FLUIDS AND STOOL ORDERABLES Final Result Performing Organization Address City/[facility]/ZIP Co de Phone Number [facility]PT OF LAB MED AND PAT+ [address] [place] [address] * Fecal leukocyte examination (02/02/2023 5:30 AM EDT) Special Requests None 02/02/2023 7:17 AM EDT [facility] GRAM STAIN No WBC seen on smear. 02/03/2023 8:15 AM EDT [facility] Stool (Stool) 02/02/2023 5:3 0 AM EDT 02/02/2023 7:19 AM EDT Eliana Berry NP LAB BODY FLUIDS AND STOOL ORDERABLES Final Result Performing Organization Address [facility] Co de Phone Number [address] [address] * Stool culture (02/02/2023 5:30 AM EDT) Special Requests None 02/02/2023 7:17 AM EDT [facility] Stool Culture NO SALMONELLA, SHIGELLA OR CAMPYLOBACTER ISOLATED 02/03/2023 8:48 AM EDT [facility] Stool (Stool) 02/02/2023 5:3 0 AM EDT 02/02/2023 7:19 AM EDT Comment:STOOL Eliana Berry NP LAB MICROBIOLOGY CULTURE ORDERABLES Final Result Performing Organization Address [facility] Co de Phone Number [address] [address] * Ova and parasites, stool (02/01/2023 6:57 AM EDT) Parasitic exam FINAL 3 1235 [facility] DPT OF LAB MED AND PAT+ Comment: (NOTE) SOURCE: STOOL, STLP OVA AND PARASITE, MICROSCOPY, F FINAL No parasites seen. Cryptosporidium, Cyclospora, and microsporidia are not readily detected by this method. Single negative specimen does not rule out parasitic infection. Stool (Stool) 02/01/2023 6:5 7 AM EDT 02/02/2023 7:21 AM EDT Eliana Berry NP LAB BODY FLUIDS AND STOOL ORDERABLES Final Result Performing Organization Address [facility] Co de Phone Number [facility] DPT OF LAB MED AND PAT+ [address] [place] [address] * Ova and parasites, stool (01/31/2023 9:02 AM EDT) Parasitic exam FINAL 3 1530 [facility] DPT OF LAB MED AND PAT+ Comment: (NOTE) SOURCE: STOOL, STLP OVA AND PARASITE, MICROSCOPY, F FINAL No parasites seen. Cryptosporidium, Cyclospora, and microsporidia are not readily detected by this method. Single negative specimen does not rule out parasitic infection. Stool (Stool) 01/31/2023 9:0 2 AM EDT 02/02/2023 7:20 AM EDT Eliana Berry NP LAB BODY FLUIDS AND STOOL ORDERABLES Final Result Performing Organization Address [facility] Co de Phone Number [facility] DPT OF LAB MED AND PAT+ [address] [place] [address] documented in this encounter Visit Diagnoses Diagnosis Change in bowel habits- Primary Other symptoms involving digestive system documented in this encounter Care Teams Chemical Pathologist Relationship Specialty Start Date End Date David Seymour DO PCP - General Internal Medicine 04/06/17 David Seymour DO [email or web address] Historical LMR Provider 03/13/17 Caro Sandoval, MANAGER MARKET RESEARCH [address] [place] [address] Historical LMR Provider 03/13/17 Renee Mercedes MD [address] [place] [address], [address] [place] [address] [email or web address] Historical LMR Provider 03/13/17 documented as of this encounter Additional Source Comments The information contained in this document represents components of the legal health record. It is not the complete legal health record.[facility]
--- OUTSIDE RECORDS SUMMARY | 2025-04-06 11:18 | XMS_ITS | Encounter Summary ---
Author Organization [facility] Address [address] [facility] [address] [place] [address] Phone Care Team Providers Care Extrusion Die Corrector Name Role Phone David Seymour DO Unavailable Caro Sandoval VICE PRESIDENT OF ADVERTISING Unavailable [phone] Mikey Leong MD Unavailable [phone] Renee Mercedes MD Unavailable [phone] Aidee Valladares VICE PRESIDENT OF ADVERTISING Unavailable Arnaldo Dillon MD Unavailable Anahi Persaud RDCS Unavailable [email or web address] Ana Cristina Parmar MD Unavailable [phone] Philip Stewart MD Unavailable [phone] David Seymour DO Primary Care Provider [phone] Encounter Details Date Type Department Care Team (Latest Contact Info) Description 06/29/2019 Transcribe Orders Virtual Department [address] [place] [address] Simin Kimble, CRUZ [address] [place] [address] [email or web address] Dyspnea, unspecified type (Primary [...] 2:00 PM EST Office Visit [facility] Plastic Surgery [address] [place] [address] Douglas Reyes MD [address] [place] [address] [email or web address] documented as of this encounter Results * Pulmonary Function Test Reason for Exam: Dyspnea/Shortness of Breath; Type of PFT Test: Spirometry with bronchodilator, Lung Volumes, DLCO; Performing Location: [facility] (01/01/2020 1:56 PM EDT) FEV1 FVC [...] type documented in this encounter Care Teams Extrusion Die Corrector Relationship Specialty Start Date End Date David Seymour DO PCP - General Internal Medicine 04/06/17 David Seymour DO Historical LMR Provider 03/13/17 Caro Sandoval VICE PRESIDENT OF ADVERTISING [address] [place] [address] [email or web address] Historical LMR Provider 03/13/17 Mikey Leong MD [address] [place] [address] [email or web address] Historical LMR Provider 03/13/17 05/31/21 Renee Mercedes MD [address] [place] [address] [address] [place] [address] Historical LMR Provider 03/13/17 Aidee Valladares NP [address] [place] [address] [email or web address] Historical LMR Provider 03/13/17 2 Arnaldo Dillon MD [address] [facility], 2nd [place] [address] Historical LMR Provider 03/13/17 05/31/21 Anahi Persaud, AMY [email or web address] Historical LMR Provider 03/13/17 05/31/21 Ana Cristina Parmar MD [address], [place] [address] Historical LMR Provider 03/13/17 2 Philip Stewart MD [address] [place] [address] Historical LMR Provider 03/13/17 2 documented as of this encounter Additional Source Comments The information contained in this document represents components of the legal health record. It is not the complete legal health record.[facility]
--- OUTSIDE RECORDS SUMMARY | 2025-04-06 11:18 | XMS_ITS | Encounter Summary ---
Author Organization [facility] Address [address] [place] [address] Phone Care Team Providers Care Non Garment Sewing Machine Operator Name Role Phone David Seymour DO Unavailable Caro Sandoval RN WOMEN SERVICES Unavailable [phone] Renee Mercedes MD Unavailable [phone] David Seymour DO Primary Care Provider [phone] Encounter Details Date Type Department Care Team (Late st Contact Info) Description 03/07/2024 Procedure Pass [facility], [address] [address] Social History Tobacco Use Types Packs/Day Years [...] EST Office Visit [facility] Plastic Surgery [address] [place] [address] Douglas Reyes MD [address] [place] [address] documented as of this encounter Visit Diagnoses Not on filedocumented in this encounter Care Teams Non Garment Sewing Machine Operator Relationship Specialty Start Date End Date David Seymour DO PCP - General Internal Medicine 04/06/17 David Seymour DO Historical LMR Provider 03/13/17 Caro Sandoval NP [address] [place] [address] Historical LMR Provider 03/13/17 Renee Mercedes MD [address] [place] [address] [email or web address] Historical LMR Provider 03/13/17 documented as of this encounter Additional Source Comments The information contained in this document represents components of the legal health record. It is not the complete legal health record.[facility]
--- OUTSIDE RECORDS SUMMARY | 2025-04-06 11:19 | XMS_ITS | Encounter Summary ---
Author Organization [facility] Address [address] [facility] [address] [place] [address] Phone Care Team Providers Care Salvage Clerk Name Role Phone David Seymour DO Unavailable Caro Sandoval FIRE PROTECTION EQUIPMENT TECHNICIAN Unavailable [phone] Mikey Leong MD Unavailable [phone] Renee Mercedes MD Unavailable Aidee Valladares FIRE PROTECTION EQUIPMENT TECHNICIAN Unavailable [phone] Arnaldo Dillon MD Unavailable Anahi Persaud RDCS Unavailable [email or web address] Ana Cristina Parmar MD Unavailable + [phone] Philip Stewart MD Unavailable [phone] David Seymour DO Primary Care Provider [phone] Encounter Details Date Type Department Care Team (Late st Contact Info) Description 04/06/2017 Ancillary Orders [facility] [address] [place], [place] [id number] Renee Mercedes MD [address] [facility], [address] [place], [place] [id number] [email or web address] Visit for screening mammogram Social [...] 04/30/2025 2:00 PM EST Office Visit [facility] [address] [place] [address] Douglas Reyes MD [address] [place] [address], [address] [address] [email or web address] documented as of this encounter Results * BI MAMMOGRAM SCREENING WITH TOMOSYNTHESIS WITH CAD (BILATERAL) (05/14/2017 7:41 AM EST) Anatomical Region Laterality Modality Breast Left, Breast Right, Breast Bilateral Bila teral Mammography 05/14/2017 8:09 AM EST Impressions 05/14/2017 8:11 AM EST No mammographic evidence of malignancy. BI-RADS CATEGORY: 1 - Negative. DENSITY: There are scattered fibroglandular densities. POS - [id number] Narrative 05/14/2017 8:11 AM EST Standard digital [...] and compared with multiple prior studies, most mcobttag22/06/2016, with utilization of computer-aided detection. The breasts are composed of scattered fibroglandular densities. Thestromal markings are essentially unchanged in overall appearance anddistribution. No dominant spiculated mass, suspicious clusteredmicrocalcifications, or focal zone of pathologic skin thickening orretraction are noted to have arisen in the interim. IMPRESSION: No mammographic evidence of malignancy. BI-RADS CATEGORY: 1 - Negative. DENSITY: There are scattered fibroglandular densities. POS - [id number] us Renee Mercedes MD IMG MG EXAMS Final Result documented in this encounter Visit Diagnoses Diagnosis Visit for screening mammogram Visit for screening mammogram documented in this encounter Care Teams Salvage Clerk Relationship Specialty Start Date End Date David Seymour DO PCP - General Internal Medicine 04/06/17 David Seymour DO Historical LMR Provider 03/13/17 Caro Sandoval NP [address] [place] [address] [email or web address] Historical LMR Provider 03/13/17 Mikey Leong MD [address] [place] [address] [email or web address] Historical LMR Provider 03/13/17 05/31/21 Renee Mercedes MD [address] [place] [address] [email or web address] Historical LMR Provider 03/13/17 Aidee Valladares NP [address] [place] [address] [email or web address] Historical LMR Provider 03/13/17 2 Arnaldo Dillon MD [address] [facility], [address] [place] [address] Historical LMR Provider 03/13/17 05/31/21 Anahi Persaud, RDCS Historical LMR Provider 03/13/17 05/31/21 Ana Cristina Parmar MD [address], [place] Historical LMR Provider 03/13/17 2 Philip Stewart MD [address] [place] [address] Historical LMR Provider 03/13/17 2 documented as of this encounter Additional Source Comments The information contained in this document represents components of the legal health record. It is not the complete legal health record.[facility]
--- OUTSIDE RECORDS SUMMARY | 2025-04-06 11:19 | XMS_ITS | Encounter Summary ---
Author Organization [facility] Address [address] [place] [address] Phone Care Team Providers Care Rectangular Tank Cooper Name Role Phone David Seymour DO Unavailable Caro Sandoval PESTICIDE USE MEDICAL COORDINATOR Unavailable [phone] Renee Mercedes MD Unavailable [phone] David Seymour DO Primary Care Provider [phone] Encounter Details Date Type Department Care Team (Late st Contact Info) Description 03/10/2024 Procedure Pass [facility], [address] [address] Social History Tobacco Use Types Packs/Day Years [...] Description 04/30/2025 2:00 PM EST Office Visit [facility] Pl[facility] Surgery [address] [place] [address] Douglas Reyes MD [address] [place] [address] documented as of this encounter Visit Diagnoses Not on filedocumented in this encounter Care Teams Rectangular Tank Cooper Relationship Specialty Start Date End Date David Seymour DO PCP - General Internal Medicine 04/06/17 David Seymour DO Historical LMR Provider 03/13/17 Caro Sandoval NP [address] [place] [address] Historical LMR Provider 03/13/17 Renee Mercedes MD [address] [place] [email or web address] Historical LMR Provider 03/13/17 documented as of this encounter Additional Source Comments The information contained in this document represents components of the legal health record. It is not the complete legal health record.[facility]
--- OUTSIDE RECORDS SUMMARY | 2025-04-06 11:19 | XMS_ITS | Encounter Summary ---
Author Organization [facility] Address [address] [facility] [address] [place] [address] Phone Care Team Providers Care Software Reverse Engineer Name Role Phone David Seymour DO Unavailable Caro Sandoval DIELECTRIC TESTING MACHINE OPERATOR Unavailable [phone] Mikey Leong MD Unavailable Renee Mercedes MD Unavailable Aidee Valladares DIELECTRIC TESTING MACHINE OPERATOR Unavailable Aranldo Dillon MD Unavailable [phone] Unavailable [email or web address] Ana Cristina Parmar MD Unavailable + [phone] Philip Stewart MD Unavailable [phone] David Seymour DO Primary Care Provider [phone] Reason for Referral * MRI/CAT Scan - Closed Specialty Diagnoses / Procedures Referred By Contac t Referred To Contact Radiology Diagnoses Other abnormal auditory perceptions, bilateral Procedures CT Face CHG CT SCAN, FACE/JAW CONTRAST CHG CT SCAN,MAXILLOFACIAL AREA,W/O CONTRAST Joana Bradshaw PA Phone: tel: fax: Referral ID Status Reason Start Date Expiration Date Visits Re quested Visits Authorized [id number] Closed 11/27/2020 05/26/2021 1 1 Encounter Details Date Type Department Care Team (Latest Contact Info) Description 11/27/2020 Transcribe Orders Virtual Department [address] [place] [address] Joana Bradshaw PA 6 [facility] [address] [place] [address] Other abnormal auditory perceptions, bilateral (Primary Dx) [...] Description 04/30/2025 2:00 PM EST Office Visit [facility] Plastic Surgery [address] [place] [address] Douglas Reyes MD [address] [place] [address], [address] [address] [email or web address] documented as of this encounter Results * [...] bilateral documented in this encounter Care Teams Software Reverse Engineer Relationship Specialty Start Date End Date David Seymour DO PCP - General Internal Medicine 04/06/17 David Seymour DO Historical LMR Provider 03/13/17 Caro Sandoval NP [address] [place] [address] Historical LMR Provider 03/13/17 Mikey Leong MD [address] [place] [address] [email or web address] Historical LMR Provider 03/13/17 05/31/21 Renee Mercedes MD [address] [facility], [address] [place] [address] [email or web address] Historical LMR Provider 03/13/17 Aidee Valladares DIELECTRIC TESTING MACHINE OPERATOR [address] [place] [address] [email or web address] Historical LMR Provider 03/13/17 2 Arnaldo Dillon MD [address] [facility] [place] [address] Historical LMR Provider 03/13/17 05/31/21 Anahi Persaud, [facility] [email or web address] Historical LMR Provider 03/13/17 05/31/21 Ana Cristina Parmar MD [address] [address] Historical LMR Provider 03/13/17 2 Philip Stewart MD [address] [place] [address] Historical LMR Provider 03/13/17 2 documented as of this encounter Additional Source Comments The information contained in this document represents components of the legal health record. It is not the complete legal health record.[facility]
--- OUTSIDE RECORDS SUMMARY | 2025-04-06 11:20 | XMS_ITS | Encounter Summary ---
Author Organization [facility] Address [address] [facility] [address] [place] [address] Phone Care Team Providers Care Tobacco Stripper Hand Name Role Phone David Seymour DO Unavailable Caro Sandoval [facility] Unavailable [phone] Mikey Leong MD Unavailable Renee Mercedes MD Unavailable Aidee Valladares [facility] Unavailable Arnaldo Dillon MD Unavailable [phone] Unavailable [email or web address] Ana Cristina Parmar MD Unavailable + [phone] Philip Stewart MD Unavailable [phone] David Seymour DO Primary Care Provider [phone] Reason for Referral * - Closed Specialty Diagnoses / Procedures Referred By Radha bueno Referred To Contact Diagnoses Palpitations Procedures Stress Test Exercise Joana Bradshaw PA Phone: tel: fax: Referral ID Status Reason Start Date Expiration Date Visits Re quested Visits Authorized [id number] Closed 12/19/2019 12/18/2020 1 1 * Outpatient Procedure - Closed Specialty Diagnoses / Procedures Referred By Contac t Referred To Contact Diagnoses Palpitations Procedures Adult Echo TTE Joana Bradshaw PA Phone: tel: fax: Referral ID Status Reason Start Date Expiration Date Visits Re quested Visits Authorized [id number] Closed 12/19/2019 12/18/2020 1 1 Encounter Details Date Type Department Care Team (Latest Contact Info) Description 12/19/2019 Transcribe Orders Virtual Department 30 [place] [address] Joana Bradshaw PA 6 [facility] [place] [address] Palpitations (Primary Dx) Social History Tobacco Use [...] 04/30/2025 2:00 PM EST Office Visit [facility] Plastic Surgery [address] [place] [address] Douglas Reyes MD [address] [place] [address] [email or web address] documented as of this encounter Results * [...] [facility] Max BP Diastolic 60 mmHg [facility] Max HR 169 BPM [facility] Resting HR 75 BPM [facility] Resting BP Systolic 116 mmHg [facility] Resting BP Diastolic 70 mmHg [facility] Peak METS 16.6 METS [facility] Peak HR 162 BPM [facility] Peak BP Systolic 144 mmHg [facility] Peak BP Diastolic 60 mmHg [facility] Anatomical Region Laterality Modality Heart Other 01/09/2020 [...] predicted heart rate. Rate pressure product was [address]. REPORT - Pt exercised for 12:52 min [...] has been ordered by PCP. Tino Wilcox [facility] with Dr Palma . us Joana YAP CV STRESS ORDERABLES Final Result documented in this encounter Visit Diagnoses Diagnosis Palpitations- Primary Palpitations Palpitations documented in this encounter Care Teams Tobacco Stripper Hand Relationship Specialty Start Date End Date David Seymour DO PCP - General Internal Medicine 04/06/17 David Seymour DO [email or web address] Historical LMR Provider 03/13/17 Caro Sandoval [facility] [address] [place] [address] [email or web address] Historical LMR Provider 03/13/17 Mikey Leong MD [address] [place] [address] [email or web address] Historical LMR Provider 03/13/17 05/31/21 Renee Mercedes MD [address] [address] [email or web address] Historical LMR Provider 03/13/17 Aidee Valladares [facility] [address] [place] [address] [email or web address] Historical LMR Provider 03/13/17 2 Arnaldo Dillon MD 22 [facility], [address] [place] [address] Historical LMR Provider 03/13/17 05/31/21 Anahi Persaud, RDCS Historical LMR Provider 03/13/17 05/31/21 Ana Cristina Parmar MD [address], [place] [address] Historical LMR Provider 03/13/17 2 Philip Stewart MD [address] [place] [address] Historical LMR Provider 03/13/17 2 documented as of this encounter Additional Source Comments The information contained in this document represents components of the legal health record. It is not the complete legal health record.[facility]
--- OUTSIDE RECORDS SUMMARY | 2025-04-06 11:20 | XMS_ITS | Encounter Summary ---
Author Organization [facility] Address [address] [place] [address] Phone Care Team Providers Care Neonatal Icu Coordinator Name Role Phone David Seymour DO Unavailable Caro Sandoval TRANSFER ENGINEER Unavailable [phone] Renee Mercedes MD Unavailable [phone] David Seymour DO Primary Care Provider [phone] Encounter Details Date Type Department Care Team (Late st Contact Info) Description 06/09/2023 Procedure Pass [facility], [address] [address] Social History Tobacco Use Types Packs/Day Years [...] Description 04/30/2025 2:00 PM EST Office Visit [facility] Pl[facility] Surgery [address] [place] [address] Douglas Reyes MD [address] [place] [address] documented as of this encounter Visit Diagnoses Not on filedocumented in this encounter Care Teams Neonatal Icu Coordinator Relationship Specialty Start Date End Date David Seymour DO PCP - General Internal Medicine 04/06/17 David Seymour DO Historical LMR Provider 03/13/17 Caro Sandoval NP [address] [place] [address] Historical LMR Provider 03/13/17 Renee Mercedes MD [address] [place] [address] Historical LMR Provider 03/13/17 documented as of this encounter Additional Source Comments The information contained in this document represents components of the legal health record. It is not the complete legal health record.[facility]
--- OUTSIDE RECORDS SUMMARY | 2025-04-06 11:20 | XMS_ITS | Encounter Summary ---
Author Organization [facility] Address [address] [place] [address] Phone Care Team Providers Care Oysterman Name Role Phone David Seymour DO Unavailable Caro Sandoval GARMENT SEWER HAND Unavailable [phone] Mikey Leong MD Unavailable [phone] Renee Mercedes MD Unavailable Aidee Valladares GARMENT SEWER HAND Unavailable [phone] Arnaldo Dillon MD Unavailable Anahi Persaud RD Unavailable [email or web address] Ana Cristina Parmar MD Unavailable [phone] Philip Stewart MD Unavailable [phone] David Seymour DO Primary Care Provider [phone] Encounter Details Date Type Department Care Team (Late st Contact Info) Description 11/27/2020 Procedure Pass [facility], Ct Scan - [address] [address] Social History Tobacco Use Types Packs/Day Years [...] Description 04/30/2025 2:00 PM EST [facility] [address] [place] [address] Douglas Reyes MD [address] [place] [address] [email or web address] documented as of this encounter Visit Diagnoses Not on filedocumented in this encounter Care Teams Oysterman Relationship Specialty Start Date End Date David Seymour DO PCP - General Internal Medicine 04/06/17 David Seymour DO Historical LMR Provider 03/13/17 Caro Sandoval, GARMENT SEWER HAND [address] [place] [address] [email or web address] Historical LMR Provider 03/13/17 Mikey Leong MD [address] [place] [address] [email or web address] Historical LMR Provider 03/13/17 05/31/21 Renee Mercedes MD [address] [place] [email or web address] Historical LMR Provider 03/13/17 Aidee Valladares, GARMENT SEWER HAND [address] [place] [address] [email or web address] Historical LMR Provider 03/13/17 2 Arnaldo Dillon MD 22 [facility], [address] [place] [address] [email or web address] Historical LMR Provider 03/13/17 05/31/21 Anahi Persaud, RDCS [email or web address] Historical LMR Provider 03/13/17 05/31/21 Ana Cristina Parmar MD [address] [address] Historical LMR Provider 03/13/17 2 Philip Stewart MD 61 [place] [address] Historical LMR Provider 03/13/17 2 documented as of this encounter Additional Source Comments The information contained in this document represents components of the legal health record. It is not the complete legal health record.[facility]
--- OUTSIDE RECORDS SUMMARY | 2025-04-06 11:20 | XMS_ITS | Encounter Summary ---
Author Organization [facility] Address [address] [place] [address] Phone Care Team Providers Care Premium Representative Name Role Phone David Seymour DO Unavailable Caro Sandoval SWITCHBOARD OPERATOR RECEPTIONIST Unavailable [phone] Renee Mercedes MD Unavailable [phone] David Seymour DO Primary Care Provider [phone] Encounter Details Date Type Department Care Team (Latest Contact Info) Description 09/03/2023 Transcribe Orders Virtual Department 30 [place] [address] Joana Bradshaw PA [address] [place] [address] [place] [address] Elevated LFTs (Primary Dx) Social History Tobacco [...] PM EST Office Visit [facility] Plastic Surgery [address] [place] [address] Douglas Reyes MD [address] [place] [address], [address] [address] [email or web address] documented as of this encounter Results * [...] clinician's provided indication for this examination in [facility]: Outside Radiology Order; elevated lft's TECHNIQUE: US [...] clinician's provided indication for this examination in [facility]:Outside Radiology Order; elevated lft's TECHNIQUE: US Abdominal [...] chemistry documented in this encounter Care Teams Premium Representative Relationship Specialty Start Date End Date David Seymour DO PCP - General Internal Medicine 04/06/17 David Seymour DO Historical LMR Provider 03/13/17 Caro Sandoval NP [address] [place] [address] Historical LMR Provider 03/13/17 Renee Mercedes MD [address] [place] [address], [facility] [address] [place] [address] Historical LMR Provider 03/13/17 documented as of this encounter Additional Source Comments The information contained in this document represents components of the legal health record. It is not the complete legal health record.[facility]
--- OUTSIDE RECORDS SUMMARY | 2025-04-06 11:21 | XMS_ITS | Encounter Summary ---
Author Organization [facility] Address [address] [facility] [address] [place] [address] Phone Care Team Providers Care Nurse'S Companion Name Role Phone David Seymour DO Unavailable Caro Sandoval EMAIL CAMPAIGN MANAGER Unavailable [phone] Renee Mercedes MD Unavailable [phone] David Seymour DO Primary Care Provider [phone] Reason for Referral * MRI/CAT Scan - Closed Specialty Diagnoses / Procedures Referred By Contalka t Referred To Contact Radiology Diagnoses Abnormal result of other cardiovascular function study Procedures NC Myocardial Perfusion Exercise Multiple CHG MYOCARDIAL SPECT MULTIPLE STUDIES Joana Bradshaw PA Phone: tel: fax: Referral ID Status Reason Start Date Expiration Date Visits Re quested Visits Authorized [id number] Closed 03/13/2022 05/12/2022 4 4 Encounter Details Date Type Department Care Team (Latest Contact Info) Description 03/12/2022 Transcribe Orders Virtual Department 30 [place] [address] Joana Bradshaw PA 6 [facility] [place] [address] Abnormal result of other cardiovascular function study [...] Description 04/30/2025 2:00 PM EST Office Visit [facility] Plastic Surgery [address] [place] [address] Douglas Reyes MD [address] [place] [address], [address] [address] [email or web address] documented as of this encounter Results * [...] calculated to be 1.12 Procedure Note Sudeep Chattereje MD - 03/27/2022 HISTORY : Abnormal study. [...] study documented in this encounter Care Teams Nurse'S Companion Relationship Specialty Start Date End Date David Seymour DO PCP - General Internal Medicine 04/06/17 David Seymour DO [email or web address] Historical LMR Provider 03/13/17 Caro Sandoval NP [address] [place] [address] Historical LMR Provider 03/13/17 Renee Mercedes MD [address] [place] [address] [email or web address] Historical LMR Provider 03/13/17 documented as of this encounter Additional Source Comments The information contained in this document represents components of the legal health record. It is not the complete legal health record.[facility]
--- OUTSIDE RECORDS SUMMARY | 2025-04-06 11:21 | XMS_ITS | Encounter Summary ---
Author Organization [facility] Address [address] [facility] [address] [place] [address] Phone Care Team Providers Care Contact Center Consultant Name Role Phone David Seymour DO Unavailable Caro Sandoval PROFESSIONAL SERVICES CONSULTANT Unavailable [phone] Mikey Leong MD Unavailable [phone] Renee Mercedes MD Unavailable Aidee Valladares PROFESSIONAL SERVICES CONSULTANT Unavailable Arnaldo Dillon MD Unavailable [phone] [address]aud [address]CS Unavailable [email or web address] Ana Cristina Parmar MD Unavailable [phone] Philip Stewart MD Unavailable [phone] David Seymour DO Primary Care Provider [phone] Encounter Details Date Type Department Care Team (Late st Contact Info) Description 03/16/2018 Ancillary Orders Virtual Department [address] [place] [address] David Seymour DO [address] [facility] [place] [address] [email or web address] Breast screening Social History Tobacco Use [...] Description 04/30/2025 2:00 PM EST Office Visit [facility] Plastic Surgery [address] [place] [phone] Douglas Reyes MD [address] [place] [phone] [email or web address] documented [...] There are scattered fibroglandular densities. POS - [id number] Narrative 05/18/2018 8:13 PM EST FINDINGS: Bilateral [...] There are scattered fibroglandular densities. POS - [id number] us David Seymour DO IMG MG EXAMS Final Result documented in this encounter Visit Diagnoses Diagnosis Breast screening Breast screening, unspecified Breast screening Breast screening, unspecified documented in this encounter Care Teams Contact Center Consultant Relationship Specialty Start Date End Date David Seymour DO [email or web address] PCP - General Internal Medicine 04/06/17 David Seymour DO Historical LMR Provider 03/13/17 Caro Sandoval NP [address] [place] [address] [email or web address] Historical LMR Provider 03/13/17 Mikey Leong MD [address] [place] [address] [email or web address] Historical LMR Provider 03/13/17 05/31/21 Renee Mercedes MD [address] [place] [address] [address] [place] [address] [email or web address] Historical LMR Provider 03/13/17 Aidee Valladares NP [address] [place] [address] [email or web address] Historical LMR Provider 03/13/17 2 Arnaldo Dillon MD [address] [address] Historical LMR Provider 03/13/17 05/31/21 Anahi Persaud, RDCS [email or web address] Historical LMR Provider 03/13/17 05/31/21 Ana Cristina Parmar MD [address] [address] Historical LMR Provider 03/13/17 2 Philip Stewart MD [address] [place] [address] Historical LMR Provider 03/13/17 2 documented as of this encounter Additional Source Comments The information contained in this document represents components of the legal health record. It is not the complete legal health record.[email or web address]
--- OUTSIDE RECORDS SUMMARY | 2025-04-06 11:21 | XMS_ITS | Data Portability ---
Author Organization [facility], Telehealth Patient Home Address [address] [place] [address] Assessment No assessment recorded. Plan of Treatment Reminders Order Date Submit Date Provider Last Modified By Organization Details Last Modified Time Details Appointments ANNUAL EXAM 2025 10:30A M MARELY RODAS Not available Not available Not available Lab CBC w/ auto diff 2024 025 [facility], [address] [place] [address], [id number], 03/07/2025 12:11:18 CMP, serum or plasma 2024 025 [facility], [address] [place] [address], [id number], 03/08/2025 14:39:36 ESR (erythroc yte sedimenta tion rate), blood 2024 025 [facility], [address] [place] [address], [id number], 03/07/2025 12:11:19 C-reactiv e protein, quantitat hola, serum or plasma 2024 025 [facility], [address] [place] [address], [id number], 03/07/2025 12:11:19 TSH + free T4, serum 2024 025 [facility], [address] [place] [address], [id number], 03/07/2025 12:11:18 magnesium , serum or plasma 2024 [facility], [address] [place] [address], [id number], 03/07/2025 12:11:18 iron + TIBC + ferritin, serum 2024 [facility], [address] [place] [address], [id number], 03/07/2025 12:11:18 vitamin B12 + folate, serum or blood 2024 [facility], [address] [place] [address], [id number], 03/07/2025 12:11:18 Referral plastic surgeon referral 2024 fallon Reyes MD, [address] [place], [address], 11/20/2024 09:13:56 Procedures None recorded. Surgeries None recorded. Imaging US, echocardi ogram 2024 [facility], [address] [place] [address], [id number], 03/09/2025 08:37:05 exercise stress test 2024 [facility], [address] [place] [address], [id number], 03/21/2025 08:09:07 holter monitor 2024 [email or web address] 10 [facility] Scheduling, [address] [place] [address], [id number], 04/04/2025 09:31:29 Medication Orders propranol ol 10 mg tablet 2024 [id number] [address] [place], [address], 03/07/2025 11:51:51 fluoxetin e 10 mg capsule 2024 025 [email or web address] [address] [place], [address], 03/07/2025 11:49:29 amoxicill in 875 mg-potass ium clavulana te 125 mg tablet 2024 025 [facility], [address] [place], [address], 01/24/2025 14:20:09 Zithromax Z-Omar 250 mg tablet 2024 025 [facility], [address] [place], [address], 11/15/2024 16:25:22 Medrol (Moar) 4 mg tablets in a dose pack 2024 025 [facility], [address] [place], [address], 01/24/2025 14:20:30 Patient TargetsNo targets recorded. Patient InstructionsNo instructions recorded. Reason for Referral Plastic Surgeon Referral for Mastodynia of bilateral breasts large breasts, causing pain, frequent rashes, and back pain, consult for reduction Referring Physician: Hardik Bradshaw, Internal Medicine, Encounter Date: 11/15/2024 Results Created Date Observation Date Name Description Value Unit Range Abnormal Flag Note LastModifiedBy Organization Detail LastModifiedTime 12/08/1912/06/2024 MAMMO , yeni solano, deshaun al, ky wright No observ ation record ed. [email or web address] [facility] - Callback Orders Only [address] [place], [address], 12/07/2024 11:24:49 01/05/20 25 01/04/2025 CT, orbit / sella / poste rior fossa / ear, w/ contr ast No observ ation record ed. [email or web address] [facility] [address] [facility], [place], [address], 01/05/2025 08:56:50 Result Notes None recorded. Problems Name Problem SNOMED Code Status Onset Date Resolution Date Notes Provider Name and Address Organization Details Recorded Time Low back pain 190811244 Active 2017 Not Available [facility] 4 08:45:49 Hernia of abdominal cavity 74765930 Active 2017 Not Available [facility] 4 08:45:49 Calcaneal spur 41195045 Active 2017 Not Available [facility] 4 08:45:49 Anxiety 68359849 Active 2020 Not Available [facility] 4 08:45:49 Osteopeni a 817918223 Active 2021 Not Available [facility] 4 08:45:49 Pain of multiple joints 02117701 Active 2021 Not Available [facility] 4 08:45:49 Trochante jasmeet bursitis of left hip 980413017356 103 Active 2021 Not Available [facility] 4 08:45:49 Pain of left knee joint 022787125108 107 Active 2021 Not Available [facility] 4 08:45:49 Semimembr anosus tendiniti s 163880182 Active 2021 Not Available [facility] 4 08:45:49 Palpitati ons 59530498 Active 2021 MARELY RODAS [address] [facility], [place], [address], [facility] 5 12:14:01 Cardiovas cular stress test abnormal 238803060 Active 2021 Not Available [facility] 4 08:45:49 Depressiv e disorder 54233221 Active 2021 Not Available [facility] 4 08:45:49 Fatigue 11304029 Active 2022 Not Available [facility] 4 08:45:49 Iron deficienc y anemia 97710287 Active 2022 Not Available [facility] 4 08:45:49 Perioral dermatiti s 348651242 Active 2022 Not Available [facility] 4 08:45:49 Tinea corporis 21874339 Active 2022 Not Available [facility] 4 08:45:49 Cough 31262177 Active 2022 Not Available [facility] 4 08:45:49 Chronic sinusitis 84557174 Active 2022 Not Available [facility] 4 08:45:49 Dysuria 03413299 Active [address] [place], [address], [facility] 4 11:20:02 Insomnia 602843790 Active [address] [place], [address], [facility] 4 15:54:56 Liver enzymes level above reference range 067634884 Active [address] [place], [address], [facility] 4 11:11:02 Lesion of liver 115999208 Active [address] [place], [address], [facility] 4 12:31:43 Serum iron above reference range 413403782 Active [address] [place], [address], [facility] 4 11:09:28 Acute urinary tract infection 653797062 Active [address] [place], [address], [facility] 4 11:13:14 Pain of right knee joint 659425117452 100 Active [address] [place], [address], [facility] 4 11:13:16 Pain of right hip joint 879146470562 102 Active [address] [place], [address], [facility] 4 11:13:36 Abdominal pain 45067288 Active [address] [place], [address], [facility] 4 08:53:43 Atelectas is 04729755 Active 2023 MARELY RODAS [address] [place] [address], [address], [facility] 4 09:27:09 Panic attack 149075688 Active 2024 MARELY RODAS [address] [place] [address], [address], [facility] 5 11:43:39 Acute otitis media 6497130 Active 2024 MARELY RODAS [address] [place] [address], [address], [facility] 5 14:28:18 Decreased hearing 252570848 Active 2024 MARELY RODAS [address] [place] [address], [address], [facility] 5 13:45:53 Acute right otitis media 454780713 Active [address] [place], [address], [facility] 5 14:12:19 Seasonal allergy 405946195 Active 2024 MARELY RODAS [address] [place] [address], [address], [facility] 14:20:52 Disorder of inner ear 134197785 Active 2024 MARELY RODAS [address] [place] [address], [address], [facility] 5 16:34:40 Mastodyni a of bilateral breasts 620766665505 83986 Active 2024 MARELY RODAS [address] [place] [address], [address], [facility] 16:39:53 Mild depressio n 814696666 Active 2024 MARELY RODAS [address] [place] [address], [address], [facility] 14:37:04 Generaliz ed anxiety disorder 54451117 Active 2024 MARELY RODAS [address] [place] [address], [address], [facility] 09:15:53 Atypical chest pain 462145394 Active 2024 MARELY RODAS [address] [place] [address], [address], [facility] 11:55:59 Problem Notes None recorded. Procedures Surgical History Date Name Laterality Status Provider Name and Address Organization Details Recorded Time 024 Corticosteroid Injection completed David Seymour DO [address] [place] [address], [address], [facility] 04/26/2024 13:40:37 019 Date of Last Pap Smear completed David Seymour DO [address] [place] [address], [address], [facility] 11/02/2018 16:35:14 Imaging Results None recorded. Procedure Notes None recorded. Medical Equipment None Reported. Allergies Allergen ID Allergen Name Allergen Category Reaction Reaction Severity Criticality Documentation Date Start Date Code Code System Note Provider Name and Address Organization Details Recorded Time 5184 nickel environme nt rash moderate Not available 05/02/2021 94188 29 RxNorm Patricia zelaya [facility] 11:37:43 5185 latex environme nt,medica tion rash moderate Not available 05/02/2021 27783 91 RxNorm Patricia zelaya [facility] 11:37:58 7751 Bactrim medicatio n Not available Not available Not available 06/25/2023 75435 9 RxNorm MARELY RODAS [address] [place], [address] [facility] 4 09:54:50 Medications Name Sig Start Date Stop Date Status Note LastModified by Organization Details LastModified Time dbg k-10 diclo 3% / baclo 2% / joão 6% / dov 10% cream Apply 1-3 grams to the affected area 3-4 times daily (HIPS) 07/20 completed Not Available Not Available Not Available amoxicilli n 500 mg capsule 10/11 completed Not Available Not Available Not Available prednisone 10 mg tablet TAKE 2 TABLETS EVERY DAY BY ORAL ROUTE FOR 14 DAYS. 07/20 completed Not Available Not Available Not Available trazodone 50 mg tablet TAKE 1 TABLET BY MOUTH EVERYDAY AT BEDTIME 08/19 completed Not Available Not Available Not Available azithromyc in 250 mg tablet TAKE 2 TABLETS BY MOUTH TODAY, THEN TAKE 1 TABLET DAILY FOR 4 DAYS DIRECTED 11/15 completed Not Available Not Available Not Available hydroquino ne 4 % topical cream APPLY 0.25 G (A THIN LAYER) NIGHTLY TO DARK SPOTS FOR UP TO 3 MONTHS. NOT COVERED active Not Available Not Available No t Available famotidine 40 mg tablet 1 TABLET IN THE MORNING AND ONE TABLET AT BEDTIME ORALLY TWICE A DAY 08/19 completed Not Available Not Available Not Available tretinoin 0.05 % topical cream APPLY CREAM TOPICALL Y EVERY DAY AT BEDTIME IN THE EVENING 09/01 completed Not Available Not Available Not Available ciprofloxa moreno 500 mg tablet TAKE 1 TABLET BY MOUTH EVERY 12 HOURS FOR 7 DAYS 07/20 completed Not Available Not Available Not Available sulfametho xazole 800 mg-trimeth oprim 160 mg tablet TAKE 1 TABLET EVERY 12 HOURS BY ORAL ROUTE DIRECTED FOR 7 DAYS, FOR UTI. 07/20 completed Not Available Not Available Not Available tramadol 50 mg tablet TAKE 1 TABLET BY MOUTH EVERY 6 HOURS NEEDED FOR 30 DAYS 03/20 completed Not Available Not Available Not Available triamcinol one acetonide 0.1 % topical cream APPLY THIN COAT TO AFFECTED AREA TWICE A DAY 09/01 completed Not Available Not Available Not Available terbinafin e HCl 250 mg tablet TAKE 1 TABLET BY MOUTH EVERY DAY FOR 14 DAYS 03/26 completed Not Available Not Available Not Available propranolo l 10 mg tablet TAKE 1 TABLET TWICE A DAY BY ORAL ROUTE NEEDED FOR 30 DAYS, FOR ANXIETY. 03/07 completed Not Available Not Available Not Available propranolo l 40 mg tablet TAKE 1 TABLET BY MOUTH TWICE A DAY NEEDED 01/24 completed Not Available Not Available Not Available amoxicilli n 875 mg tablet 06/28 completed Not Available Not Available Not Available lorazepam 0.5 mg tablet TAKE 1 TABLET BY MOUTH EVERY DAY AT BEDTIME NEEDED 2024 active Not Available Not Available Not Avai lable triamcinol one acetonide 0.025 % topical cream 07/20 completed Not Available Not Available Not Available desonide 0.05 % topical ointment APPLY SPARINGL Y ENOUGH TO COVER TOPICALL Y TWICE A DAY FOR 2 WEEKS 09/01 completed Not Available Not Available Not Available cephalexin 500 mg capsule TAKE 1 CAPSULE BY MOUTH THREE TIMES A DAY FOR 10 DAYS 11/02 completed Not Available Not Available Not Available erythromyc in 5 mg/gram (0.5 %) eye ointment APPLY 1 CM RIBBON INTO THE LOWER CONJUNCT IVAL SAC(S) IN THE AFFECTED EYE(S) 3 TIMES PER DAY 11/02 completed Not Available Not Available Not Available fluoxetine 10 mg capsule TAKE 1 CAPSULE BY MOUTH EVERY DAY DIRECTED 03/07 completed Not Available Not Available Not Available mometasone 50 mcg/actuat ion nasal spray SPRAY 2 SPRAYS INTO EACH NOSTRIL EVERY DAY active Not Available Not Available No t Available sertraline 25 mg tablet TAKE 1 TABLET BY MOUTH EVERY DAY 07/19 completed Not Available Not Available Not Available omeprazole 20 mg capsule,de layed release Take 1 capsule every day by oral route for 30 days. 08/06 completed Not Available Not Available Not Available diclofenac sodium 75 mg tablet,del ayed release 11/02 completed as needed Not Available Not Available Not Available diltiazem CD 120 mg capsule,ex tended release 24 hr TAKE 1 CAPSULE BY MOUTH EVERY DAY 11/27 completed Not Available Not Available Not Available montelukas t 10 mg tablet TAKE 1 TABLET BY MOUTH EVERY DAY 2024 active Not Available Not Available Not Avai lable hydroxyzin e HCl 25 mg tablet TAKE 1 TABLET BY MOUTH THREE TIMES A DAY NEEDED FOR 30 DAYS 07/19 completed Not Available Not Available Not Available azelastine 137 mcg (0.1 %) nasal spray [place] 1 spray twice a day by intranas al route. 11/02 completed Not Available Not Available Not Available estradiol 0.01% (0.1 mg/gram) vaginal cream PLACE 2 GRAMS VAGINALL Y AT BEDTIME 2-3 TIMES A WEEK active Not Available Not Available No t Available methylpred nisolone 4 mg tablets in a dose pack TAKE 6 TABLETS ON DAY 1 DIRECTED ON PACKAGE AND DECREASE BY 1 TAB EACH DAY FOR A TOTAL OF 6 DAYS 01/24 completed Not Available Not Available Not Available albuterol sulfate HFA 90 mcg/actuat ion aerosol inhaler Inhale 2 puffs every 4 hours by inhalati on route. active Not Available Not Available No t Available ketoconazo le 2 % topical cream APPLY TO AFFECTED AREA EVERY DAY DIRECTED 07/19 completed Not Available Not Available Not Available doxycyclin e hyclate 100 mg tablet TAKE 1 TABLET BY MOUTH TWICE A DAY FOR 7 DAYS WITH FOOD AND A GLASS OF WATER 07/19 completed Not Available Not Available Not Available ipratropiu m bromide 21 mcg (0.03 %) nasal spray 05/02 completed Not Available Not Available Not Available mometasone 0.1 % topical cream 07/20 completed Not Available Not Available Not Available amoxicilli n 875 mg-potassi um clavulanat e 125 mg tablet TAKE 1 TABLET BY MOUTH EVERY 12 HOURS FOR 10 DAYS 01/24 completed Not Available Not Available Not Available neomycin 3.5 mg/g-polym yxin B 10,000 unit/g-dex ameth 0.1 % eye oint APPLY A 1/4 INCH RIBBON TO RIGHT EYE (WATER LINE) 03/26 completed Not Available Not Available Not Available neomycin-p olymyxin-h ydrocort 3.5 mg-10,000 unit/mL-1 % ear drops,susp INSTILL 4 DROPS INTO AFFECTED EAR(S) 3 TIMES A DAY 09/01 completed Not Available Not Available Not Available bupropion HCl XL 150 mg 24 hr tablet, extended release TAKE 1 TABLET BY MOUTH EVERY DAY 07/19 completed Not Available Not Available Not Available escitalopr am 5 mg tablet TAKE 1 TABLET BY MOUTH EVERY DAY 07/20 completed Not Available Not Available Not Available chlorhexid ine gluconate 0.12 % mouthwash 10/11 completed Not Available Not Available Not Available calcium qd active Not Available Not Avail able Not Available multivitam in active Not Available Not Available Not Available Allergy Relief (cetirizin e) 10 mg tablet TAKE 1 TABLET BY MOUTH EVERY DAY PRN active Not Available Not Available No t Available GaviLyte-G 236 gram-22.74 gram-6.74 gram-5.86 gram oral solution 10/11 completed Not Available Not Available Not Available doxepin 6 mg tablet TAKE 1 TABLET BY MOUTH EVERY DAY AT BEDTIME 07/19 completed Not Available Not Available Not Available Osteo Bi-Flex daily active OTC Not Available Not Available Not Available Fluarix Quad 9559-6352 (PF) 60 mcg (15 mcg x 4)/0.5 mL IM syringe 12/17 completed Not Available Not Available Not Available Flucelvax Quad (PF) 60 mcg (15 mcg x 4)/0.5 mL IM syringe 07/17 completed Not Available Not Available Not Available COVID-19 test specimen collection TEST DIRECTED 02/07 completed Not Available Not Available Not Available ashdalygandh a root extract take two tabs at night (250 mg x 2) 11/15 completed Not Available Not Available Not Available Flowflex COVID-19 Antigen Home Test kit FOLLOW INSTRUCT IONS INCLUDED WITH THE PACKAGE. 02/27 /2024 completed Not Available Not Available Not Available Vitals Date Recorded Body height Body mass index (BMI) Body weight Oxygen saturation Oxygen saturation in Arterial blood by Pulse oximetry Heart rate Systolic And Diastolic Provider Name and Address Organization Details Last Updated DateTime 5 160.02 cm 25 kg/m2 26302.5 2 g 98 % 98 % 77 /min 100/68 mm[Hg] Kendal [facility] 5 14:00:53 Date Recorded Body height Body mass index (BMI) Body weight Oxygen saturation Oxygen saturation in Arterial blood by Pulse oximetry Heart rate Systolic And Diastolic Provider Name and Address Organization Details Last Updated DateTime 5 160.02 cm 25 kg/m2 77262.5 2 g 96 % 96 % 74 /min 102/64 mm[Hg] [facility] 5 16:29:21 Date Recorded Body height Body mass index (BMI) Body weight Oxygen saturation Oxygen saturation in Arterial blood by Pulse oximetry Heart rate Systolic And Diastolic Provider Name and Address Organization Details Last Updated DateTime 5 160.02 cm 22.4 kg/m2 60497.7 9 g 96 % 96 % 70 /min 104/62 mm[Hg] [facility] 5 14:24:15 Date Recorded Body height Body mass index (BMI) Body weight Heart rate Oxygen saturation Oxygen saturation in Arterial blood by Pulse oximetry Systolic And Diastolic Provider Name and Address Organization Details Last Updated DateTime 5 160.02 cm 22.3 kg/m2 65364.6 4 g 70 /min 98 % 98 % 104/62 mm[Hg] [facility] 09:[facility]26 Date Recorded Body height Body mass index (BMI) Body weight Heart rate Oxygen saturation Oxygen saturation in Arterial blood by Pulse oximetry Systolic And Diastolic Provider Name and Address Organization Details Last Updated DateTime 5 160.02 cm 22.3 kg/m2 93049.6 4 g 70 /min 98 % 98 % 120/70 mm[Hg] [facility] 5 11:39:27 Social History Question Answer Notes LastModified by Organizat ion Details LastModified Time Tobacco Smoking Status Never Smoker Ирина zelaya [facility] 11/15/2024 16:25:52 What Was The Date Of Your Most Recent Tobacco Screening? 03/07/2025 [email or web address] Information not available 03/07/2025 How Many Years Have You Smoked Tobacco? 12 [id number] Information not available 03/26/2020 Sex: Unknown Functional Status Question Answer Note LastModified by Organization D etails LastModified Time Do you or have you ever used any other forms of tobacco or nicotine? No [email or web address] Information not available 08/20/2023 Mental Status None recorded. Family History Relationship Description Onset Age of this Age Resolved Age Notes LastModified by Organization Details LastModified Time Father Alzheimer's disease 85 [email or web address] Not available 2017 10:23:08 Mother Coronary arterioscler osis 67 smoker kath Not available 2017 10:23:41 Maternal Grandfather Coronary arterioscler osis kath Not available 2017 10:23:41 Maternal Uncle Coronary arterioscler osis [email or web address] Not available 2017 10:23:41 Medical History No medical history recorded. Gynecological History Statement/Question Response Date of Last Pap Smear 11/02/2018 Obstetrics History GPAL:G 0 P 0 0 0 0 Immunizations Vaccine Type Date Status Note Provider Nam e and Address Organization Details Recorded Time COVID-19, mRNA, LNP-S, PF, 30 mcg/0.3 mL dose 07/07/19 21 completed Ирина zelaya [facility] 11/19/2020 09:42:32 COVID-19, mRNA, LNP-S, PF, 30 mcg/0.3 mL dose 07/30/19 21 completed Ирина zelaya [facility] 11/19/2020 09:42:42 zoster, unspecified formulation 09/28/19 21 completed Ирина zelaya [facility] 11/19/2020 09:42:56 zoster, unspecified formulation 11/22/19 21 completed MARELY RODAS [address] [place] [address], [address], [facility] 02/07/2021 10:54:56 Influenza, split virus, quadrivalent, preservative 02/29/20 21 completed Patricia zelaya, [facility] 04/29/2021 08:50:37 Influenza, split virus, quadrivalent, preservative 02/14/20 20 completed Patricia López [facility] 04/29/2021 08:50:53 COVID-19, mRNA, LNP-S, PF, 30 mcg/0.3 mL dose 02/29/20 [facility] 08:51:24 COVID-19, mRNA, LNP-S, PF, 30 mcg/0.3 mL dose 09/27/19 22 [facility] 08:07:57 influenza, unspecified formulation 02/29/20 22 completed HARDIK BRADSHAW, MARELY [address] [place] [address], [address], [facility] 07/30/2022 11:45:00 Pneumococcal conjugate PCV20, polysaccharide [id number] conjugate, adjuvant, PF 02/14/20 23 completed Vazquez Seymour [facility] 02/15/2023 14:26:16 influenza, unspecified formulation 02/23/20 24 completed María Barron [facility] 02/25/2024 09:58:20 SARS-COV-2 (COVID-19) vaccine, UNSPECIFIED 02/23/20 24 completed María Barron [facility] 02/25/2024 09:58:27 influenza, unspecified formulation 01/25/20 24 completed MARELY RODAS [address] [place] [address], [address], [facility] Internal [facility] 09/01/2024 13:39:32 Pneumococcal Conjugate, unspecified formulation 01/26/20 24 completed MARELY RODAS [address] [place] [address], [address], [facility] 09/01/2024 13:39:49 influenza, unspecified formulation 03/01/20 25 [facility]/06/2025 10:16:02 Influenza, split virus, quadrivalent, preservative 03/16/20 19 [facility] 13:53:03 Past Encounters Encounter ID Performer Location Encounter Start Date Encounter Closed Date Diagnosis/Indication Diagnosis SNOMED-CT Code Diagnosis ICD10 Code Diagnosis IMO Codes Diagnosis Note [id number] David Seymour [facility] Internal [address] [facility] [place] [address] 10/05/2017 14:53:56 10/05/2017 16:28:41 Adult health examination 255927786 Z00.00 Active or passive immunization 396419266 Z23 [id number] David Seymour [address],[place] [address] 12/17/2017 15:16:16 12/21/2017 08:08:57 Dysfunction of eustachian tube 93264688 H69.91 [id number] David Seymour [address],[place] [address] 01/17/2018 10:02:27 01/17/2018 11:23:22 Dyspnea 211516692 R06.00 Dysfunctio n of eustachian tube 25605555 H69.91 [id number] David Seymour [address],[place] [address] 10/11/2018 11:15:29 10/11/2018 11:59:15 Adult health examination 931454975 Z00.00 Active or passive immunization 839903454 Z23 [id number] David Seymour [facility] Internal [address],[place] [address] 06/28/2019 13:48:20 06/28/2019 15:15:26 Dyspnea 943565400 R06.00 ? PRAD Exposure to mold 2064525 417 1987937 Z77.120 Serous otitis media 8032 7007 H65.91 [id number] David Seymour [facility] [address],[place] [address] 07/17/2019 14:17:01 07/17/2019 15:49:32 Pre-surgery evaluation 531957855 Z01.818 cleared for cataract surgery with Dr. Coleman according to the 2017 ACC cardiac risk guidelines (revised) she is a low risk for this procedure [id number] [facility] [address] [facility], [place] [address] 10/23/2019 14:49:45 10/23/2019 15:54:44 Adult health examination 316938227 Z00.00 Paronychia of toe of left foot 7807925237 9695805 L03.032 infection is now resolved and is much improved following removal of toenail Low back pain 539916207 M54.5 back is doing much better but is worrying since she has been inactive Insomnia 607528961 G47.0 0 Serous otitis media 8032 7007 H65.91 use otc sudafed , afrin nasal flonase [id number] [facility] [address] [facility],[place] [facility] [place] [address] 12/18/2019 10:55:55 12/18/2019 11:32:17 Palpitations 49019203 R00.2 most likely due to stress or possible to the claritin but given her family hx of heart problems will do a complete cardiac work up to r/o any underlying issues Allergic rhinitis 982696 04 J30.9 recommence d switching from claritin to caryl or zyrtec and starting with flonase, two squirts each nostril everyday and see if there is improvemen t do not think any of these symptoms are related to COVID Nasal congestion 0167937 0 R09.81 given the hx of the patient and the lack of sick contacts or people who have similar symptoms and it seeming to correlate with the air conditioni ng it is most likely the patient is having allergies to the air conditione r either blowing pollen, mold or mildew at her as they have not been cleaned and she improves when she is not around them Cough 02984108 R05 dry cough, intermitte nt no increase in sob if she is doing her normal activities or working out feels fine at home [id number] David Seymour [facility] Internal Medicine [address] [facility],[place] [address] 11/27/2020 09:12:39 11/27/2020 09:44:44 Bilateral sensation of blocked ears 1959354592 9622733 H93.293 will set up with ENT and have CT done to send to ENT practice Anxiety 53099143 F41.1 needs refill Intoleranc e to lactose 009927309 E73.9 possibly related to the cream in her coffeetold her to try alternativ es and see if any benefit [id number] David Seymour [facility] Internal [facility] [address] [facility],[place] [address] 02/07/2021 10:49:36 02/07/2021 16:42:50 Abdominal pain 79264392 R10.0 will fu with [place] [id number] David Seymour [facility] Internal [facility] [address] [facility],[place] [address] 05/02/2021 11:29:08 05/02/2021 11:58:19 Active or passive immunization 575139571 Z23 advised Adult [facility] th examination 414066224 Z00.00 BP is excellent Anxiety 60068015 F41.1 needs refill Gastroesop hageal reflux disease 524290765 K21.9 needs refill [id number] David Seymour [facility] Internal Medicine [address] [facility],[place] [address] 08/06/2021 15:50:06 08/06/2021 16:46:18 Pain of multiple joints 97984838 M25.552 will fu with testing Pain in left thumb 97339 76397 103239 M79.645 will fu with fu work up and XRs Anxiety 42858179 F41.1 needs refill [id number] David Seymour [facility] [address] [facility], [place] [address] 09/12/2021 13:49:07 09/15/2021 10:08:00 Osteopenia 656470472 M85.811 will fu with DEXA scan of whole body due to bone pain, will fu with DEXA scan Pain of mu ltiple joints 22763799 M25.552 will fu with testing [id number] David Seymour [facility] Internal Medicine [address] [facility] [address] [place] [address] 02/04/2022 10:29:34 02/04/2022 14:56:35 Osteopenia 013003533 M85.811 will need fu with repeat scan in two years Palpitations 33074115 R0 0.2 will fu with repeat stress test Anxiety 84782734 F41.1 needs refill [id number] David Seymour [facility] Medicine [address] [facility] [address], [place] [address] 03/20/2022 15:32:06 03/23/2022 09:23:07 Anxiety 40534708 F41.1 needs refill Depressive disorder 3548 9007 F32.1 will start on lexapro [id number] David Seymour [facility] Internal Medicine [address] [facility], [place] [address] 07/30/2022 11:35:10 07/30/2022 12:29:45 Active or passive immunization 438956641 Z23 advised Adult heal th examination 639455027 Z00.00 BP is excellent Depressive disorder 3548 9007 F32.1 will start on lexapro Advance care planning 71 0125495 Z71.89 advised Fatigue 22955868 R53.83 will set up with TSH retesting Family his tory of Cardiovascular disease 569256058 Z82.[address] calcium Iron defic iency anemia 74454776 D50.0 74873 David Seymour [facility] Internal Medicine [address] [facility] [address],[place] [address] 11/02/2022 14:29:12 11/02/2022 15:51:53 Perioral dermatitis 882438165 L71.0 suggested perioral dermatitis with treatment with topical steroids, cool compresses , and olive oil washes Tinea corporis 46537536 B35.4 will trial course of terbinafin e Depressive disorder 3548 9007 F32.1 needs refill lexapro [id number] David Seymour [facility] Internal Medicine [address] [facility] [address],[place] [address] 03/26/2023 10:36:14 03/26/2023 14:04:44 Cough 43456330 R05.3 will set up with XRsstart on inhaler and on course of cipro and pred will fu after XRs Chronic sinusitis 637976 00 J32.0 will call pt after XR results come in Anxiety 67198021 F41.1 needs refill 140490 David Seymour [facility] [address] [facility],[place] [address] 06/23/2023 10:35:05 06/23/2023 11:43:51 Depressive disorder 04453112 F32.1 needs refill lexapro Dysuria 26919124 R30.0 will start on bactrim [id number] David Seymour [facility] Medicine [address] [facility] [address] [address] 07/20/2023 09:23:34 07/21/2023 14:24:52 Anxiety 46589153 F41.1 refill the ativanbupr opion for the anxietyd/c the escitalopr am Palpitations 30104255 R0 0.2 will have her evaluated by a cardiologi st Insomnia 026614815 G47.0 9 will trial trazodone [id number] David Seymour [facility] Internal Medicine [address] [facility] [address],[place] [address] 08/20/2023 13:59:19 08/23/2023 09:46:35 Insomnia 526040296 G47.09 will set up with alternativ e Adult heal th examination 834405104 Z00.00 BP is excellent Anxiety 13792345 F41.1 refill the ativan [id number] David Seymour [facility] Internal Medicine [address] [facility] [address],[place] [address] 03/03/2024 10:25:12 03/03/2024 13:24:20 Depression screening 709372803 Z13.31 NEGATIVE Acute urin karly tract infection 187133097 N39.0 will send out urine Serum iron above reference range 858785424 R79.0 will recheck levels Lesion of liver 71387603 0 K77 6 mos f/u Pain of ri ght knee joint 8829236640 66213 M25.561 will set up with XRs Pain of ri ght hip joint 7180255123 50080 M25.551 will set up with XRs [id number] David Seymour [facility] Internal Medicine [address] [facility] [address],[place] [address] 04/26/2024 13:23:24 04/26/2024 14:04:09 Pain of right knee joint 9536816170 21800 M25.561 jey nayely Dysuria 21088156 R30.0 ua negwill recc estrog cream [id number] David Seymour [facility] Internal Medicine [address] [facility] [address] [address] 07/19/2024 13:57:05 07/19/2024 15:23:11 Anxiety 53522276 F41.1 can continue on the ativan PRN at night Acute otitis media 14100 03 H65.04 will start on abx ear drop [id number] David Seymour [facility] Medicine [address] [facility] [address],[place] [address] 09/01/2024 13:18:28 09/01/2024 15:36:31 Active or passive immunization 193905627 Z23 advised on Tdap Adult [facility] examination 497721884 Z00.00 BP is excellent Depressive disorder 3548 9007 F32.1 stable Decreased hearing 895315 001 H91.93 will set up with audio [id number] David Seymour [facility] Internal Medicine [address] [facility] [address],[place] [address] 11/08/2024 13:46:36 11/08/2024 14:55:38 Acute right otitis media 442961092 H66.91 0818382 start on z-omar and medrolreco mmending start on Caryl and flonase not sudafed, due to palpitatio ns Seasonal allergy 4826970 04 J30.2 43283 start on allegraif too many side effects will do singulair instead [id number] David Seymour [facility] Internal Medicine [address] [facility],[place] [address] 11/15/2024 15:53:26 11/17/2024 09:21:54 Depression screening 677979914 Z13.31 NEGATIVE Disorder of inner ear 23 1995894 H83.91 13546356 recommende d alt abx and sudafed for the next 7 days twice a day Mastodynia of bilateral breasts 6417894669 0933519 N64.4 75112978 recommende d consult for breast reduction surgery [id number] David Seymour [facility] Medicine [address] [facility] [facility] [place] [address] 01/24/2025 14:13:54 01/24/2025 15:30:21 Depression screening 861475823 Z13.31 NEGATIVE Mild depression 25399682 3 F32.A 714769 will try on prozacfu in two weeks [id number] David Seymour [facility] Medicine [address] [facility],[place] [facility] [place] [address] 02/07/2025 08:50:35 02/07/2025 09:40:42 Depression screening 963156611 Z13.31 NEGATIVE Panic attack 172843060 F 41.0 continue, lower dose Mild depression 43965879 3 F32.A 294892 will try on prozacfu in two weeks Anxiety 72649556 F41.1 can continue on the ativan PRN at night Generalize d anxiety disorder 48090675 F41.1 152034 can continue on the ativan PRN at night (uses sparringly ) [id number] David Seymour [facility] Internal Medicine [address] [facility],[place] [address] 03/07/2025 11:32:07 03/07/2025 13:32:36 Depression screening 731248588 Z13.31 NEGATIVE Atypical chest pain 1025 16060 R07.89 455222 will set up patient with f/u 30 day Generalize d anxiety disorder 01338602 F41.1 843458 can continue on the ativan PRN at night (uses sparringly ) Palpitations 42773867 R0 0.2 18280 will have her evaluated by a cardiologi [facility] Concerns Section Related Observation LastModified by Organization Detai ls LastModified Time None Recorded Concern Status LastModified by Organization Details LastModified Time None Recorded Advance Directives Directive None Recorded Payers Insurance Date Sequence Insurance Name Policy Number Policy Ingram Covered Member ID Ingram Member ID Guarantor Name 03/07/2025 2 [facility] INDEMNITY PLAN (MEDICARE SUPPLEMENT) [id number] Verito Chapa [id number] Verito Chapa 03/07/2025 1 [employer] [id number] Verito Chapa [id number] Verito Chapa 03/07/2025 1 [place] [facility] Verito Chapa [id number] Verito Chapa 03/07/2025 1 [place] [employer] Verito Chapa [id number] Verito Chapa Notes Date Note Type Note Provider Name a nd Address Organization Details Recorded Time 5 text/html ROS as noted in the HPI c/o right ear pain the patient is having right ear painthe patient most likely having issues with allergies the patient has an infection R ear, recommended medrol and z-omar the patient will also have her redo her hearing test since she had it done when she was feeling well otherwise will fu with patient to see progress MARELY RODAS [address] [place] [address], [phone], [facility] 11/08/2024 14:21:59 5 text/html ROS as noted in the HPI f/u ear pain dysfunction of the right inner ear: the patient reports that her ear is still bothering herrecommended alt abx, starting with sudafed, if no improvement will call me back on Wednesday and Wednesdaywill order CT scan to check her ears and head will set up with plastic surgeon for breast reduction consultabout around a size F, having issues with rashes, back pain, difficulty finding with a good bra MARELY RODAS [address] [place], [address], [facility] Internal Medicine 11/15/2024 16:55:50 5 text/html ROS as noted in the HPI c/o anxiety the patient is having increased anxiety 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, she hears it all day everyday and it is very disconcerting for the patientshe did call her town's alcoholic counselor about who to talk to this aboutrecommended patient follow up with them about next steps given rec of therapistwill contact her insurance will f/u in two weekswill start on prozac 10 mg MARELY RODAS [address] [place], [address], [facility] Internal [facility] 01/24/2025 14:51:56 5 text/html ROS as noted in the HPI 2 f/u week the patient is here for her two week f/uthe patient reports that the anxiety has been a little better the patient reports that she is doing well on the current medication treatment plan the patient reports that the propranolol works greatwill just need to lower the dose of the medicationthe patient will let me know if know if there are any changes cont on current meds as prescribed no dose changes MARELY RODAS [address] [place], [address], [facility] Internal Medicine 02/07/2025 09:18:24 5 text/html ROS as noted in the HPI f/u medication check the patient is still having palpitations at this timedid call her sliver lap machine tender, recommended d/c the propranolol the patient is reports that she is ?afib per her watchthe patient HR is all over the place hard to say what the trigger is causing this the patient BP was elevated at home, but after she got very anxious due to the palpitations the patient's BP otherwise is usually very good the patient has cardio f/udoesn't want to do testing per pt, recommended I do the full work up for her and a 30 day holter monitor as opposed to the 24 hr one she did through cardiology patient agrees to this plannicolette still keep her cardio appt MARELY RODAS [address] [facility], [place], [address], [facility] 03/07/2025 12:18:43 OBGyn Episode No OBEpisode recorded.
--- OUTSIDE RECORDS SUMMARY | 2025-04-06 11:21 | XMS_ITS | Encounter Summary ---
Author Organization [facility] Address [address] [address] Phone Care Team Providers Care Tapper Shank Name Role Phone David Seymour DO Unavailable Caro Sandoval SAWSMITH Unavailable [phone] Mikey Leong MD Unavailable Renee Mercedes MD Unavailable Aidee Valladares SAWSMITH Unavailable Arnaldo Dillon MD Unavailable Anahi Persaud RDCS Unavailable [email or web address] Ana Cristina Parmar MD Unavailable [phone] Philip Stewart MD Unavailable [phone] David Seymour DO Primary Care Provider [phone] Encounter Details Date Type Department Care Team (Late st Contact Info) Description 10/27/2017 Transcribe Orders [facility] Main [address] [place] [address] Daivd Seymour DO [address] [facility] [place], [place] [id number] [email or web address] Routine medical exam (Primary Dx) Social History [...] EST Office Visit [facility] Plastic Surgery [address] [place] [address] Douglas Reyes MD [address] [place] [address] [email or web address] documented as of this encounter Results * Free T4 (10/27/2017 7:09 AM EDT) Pathologist [facility] FREE T4 1.2 0.9 - 1.7 ng/dL [facility] Blood 10/27/2017 7:09 AM EDT 10/27/2017 7:11 AM EDT us David A Bigda DO LAB BLOOD BKR ORDERABLES Final R esult Performing Organization Address City/[facility]/ZIP Co de Phone Number [address] [address] * TSH (10/27/2017 7:09 AM EDT) Pathologist [facility] TSH 2.85 0.27 - 4.20 uIU/mL [facility] Blood 10/27/2017 7:09 AM EDT 10/27/2017 7:11 AM EDT us David A Bigda DO LAB BLOOD BKR ORDERABLES Final R esult Performing Organization Address City/[facility]/ZIP Co de Phone Number [address] [address] * (ABNORMAL) Lipid panel (10/27/2017 7:09 AM EDT) Pathologist [facility] HDL 95 mg/dL [facility] Comment: Interpretation: Risk Level Females Decreased >55mg/dL Average 50-55 mg/dL Increased <50 mg/dL CHOLESTEROL 204 0 - 240 mg/dL [facility] TRIGLYCERIDES 59 30 - 160 mg/dL [facility] LDL 97 50 - 129 mg/dL [facility] Comment: LDL levels in terms of risk for coronary heart disease: <100 mg/dL: Optimal 100-129 mg/dL: Near or above optimal 130-159 mg/dL: Borderline high 160-189 mg/dL: High >190 mg/dL: Very High CARDIAC RISK RATIO 2.1(L) 3.3 - 4.4 [facility] Blood 10/27/2017 7:09 AM EDT 10/27/2017 7:11 AM EDT us David Seymour DO LAB BLOOD BKR ORDERABLES Final R esult [address] [address] documented in this encounter Visit Diagnoses Diagnosis Routine medical exam- Primary Routine general medical examination at a health care facility documented in this encounter Care Teams Tapper Shank Relationship Specialty Start Date End Date David Seymour DO PCP - General Internal Medicine 04/06/17 David Seymour DO Historical LMR Provider 03/13/17 Caro Sandoval NP [address] [place] [address] Historical LMR Provider 03/13/17 Mikey Leong MD [address] [place] [address] [email or web address] Historical LMR Provider 03/13/17 05/31/21 Renee Mercedes MD [address] [facility], [address] [place] [address] [email or web address] Historical LMR Provider 03/13/17 Aidee Valladares NP [address] [place] [address] [email or web address] Historical LMR Provider 03/13/17 2 Arnaldo Dillon MD [address] [facility] 2nd [place] [address] Historical LMR Provider 03/13/17 05/31/21 Anahi Persaud, RDCS [email or web address] Historical LMR Provider 03/13/17 05/31/21 Ana Cristina Parmar MD [address] [address] Historical LMR Provider 03/13/17 2 Philpi Stewart MD [address] [place] [address] Historical LMR Provider 03/13/17 2 documented as of this encounter Additional Source Comments The information contained in this document represents components of the legal health record. It is not the complete legal health record.[facility]
--- OUTSIDE RECORDS SUMMARY | 2025-04-06 11:21 | XMS_ITS | Encounter Summary ---
Author Organization [facility] Address [address] [place] [address] Phone Care Team Providers Care Talkback Host Name Role Phone David Seymour DO Unavailable Caro Sandoval PYROTECHNICS PRESS TENDER Unavailable [phone] Renee Mercedes MD Unavailable [phone] David Seymour DO Primary Care Provider [phone] Encounter Details Date Type Department Care Team (Latest Contact Info) Description 08/24/2023 Transcribe Orders [facility] Phleb Jacquelyn [address]nd [place] [address] Joana Bradshaw PA 6 [facility] [place] [address] [place] [address] Routine general medical examination at a health [...] Description 04/30/2025 2:00 PM EST Office Visit [facility] Plastic Surgery [address] [place] [address] Douglas Reyes MD [address] [place] [address] [email or web address] documented as of this encounter Results * Free T4 (08/24/2023 7:45 AM EDT) FREE T4 1.2 0.9 - 1.7 ng/dL [facility] Blood 08/24/2023 7:45 AM EDT 08/24/2023 7:51 AM EDT us Joana YAP LAB BLOOD BKR ORDERABLES Fi nal Result [address] [address] * Hemoglobin A1c (08/24/2023 7:45 AM EDT) HEMOGLOBIN A1C 5.2 4.3 - 5.8 % [facility] Blood 08/24/2023 7:45 AM EDT 08/24/2023 7:51 AM EDT Joana Vazquez Bradshaw PA LAB BLOOD BKR ORDERABLES Fi nal Result [address] [address] * TSH (08/24/2023 7:45 AM EDT) TSH 1.78 0.27 - 4.20 uIU/mL [facility] Blood 08/24/2023 7:45 AM EDT 08/24/2023 7:51 AM EDT Joana YAP LAB BLOOD BKR ORDERABLES Fi nal Result [address] [address] * 25-OH vitamin D (08/24/2023 7:45 AM EDT) 25 [place] VIT D (TOTAL) 44 30 - 60 ng/mL [facility] Blood 08/24/2023 7:45 AM EDT 08/24/2023 7:51 AM EDT Joana YAP LAB BLOOD BKR ORDERABLES Fi nal Result Performing Organization Address City/[facility] Co de Phone Number [address] [address] * (ABNORMAL) Lipid panel (08/24/2023 7:45 AM EDT) HDL 73 mg/dL [facility] Comment: Interpretation <40 mg/dL: Low HDL cholesterol (major risk factor for CHD) Greater than or equal to 60 mg/dL: High HDL cholesterol ( negative risk factor for CHD) HDL - cholesterol is affected by a number of factors, e.g. smoking, excerise, hormones, sex and age. CHOLESTEROL 188 0 - 240 mg/dL [facility] TRIGLYCERIDES 66 30 - 160 mg/dL [facility] LDL 102 50 - 129 mg/dL [facility] Comment: LDL levels in terms of risk for coronary heart disease: <100 mg/dL: Optimal 100-129 mg/dL: Near or above optimal 130-159 mg/dL: Borderline high 160-189 mg/dL: High >190 mg/dL: Very High CARDIAC RISK RATIO 2.6(L) 3.3 - 4.4 C [facility] Blood 08/24/2023 7:45 AM EDT 08/24/2023 7:51 AM EDT us Joana YAP LAB BLOOD BKR ORDERABLES Fi nal Result [facility] [address] [place], [place] [id number] * (ABNORMAL) CBC and differential (08/24/2023 7:45 AM EDT) WBC 2.44(L) 4.00 - 11.00 K/uL [facility] RBC 4.42 3.72 - 5.30 M/uL [facility] HGB 14.4 11.4 - 15.9 g/dL [facility] HCT 42.8 34.2 - 46.8 % [facility] PLT 202 140 - 430 K/uL [facility] MCV 96.8 78.0 - 97.0 fL [facility] MCH 32.6 25.0 - 33.0 pg [facility] MCHC 33.6 32.0 - 36.0 g/dL [facility] RDW 12.0 11.0 - 16.0 % [facility] MPV 10.6 8.4 - 12.8 fl [facility] DIFF METHOD Auto [facility] NEUTS 45.5 43.0 - 75.0 % [facility] LYMPHS 41.4 18.2 - 47.4 % [facility] MONOS 9.4 4.00 - 11.00 % [facility] EOS 2.5 0.0 - 8.0 % [facility] BASOS 1.2 0.0 - 2.0 % [facility] Granulocytes, immature (%) 0.0 0.0 - 0.9 % [facility] ABSOLUTE NEUTS 1.11(L) 1.80 - 7.70 K/uL [facility] ABSOLUTE LYMPHS 1.01 1.00 - 3.10 K/uL [facility] ABSOLUTE MONOS 0.23 0.20 - 0.80 K/uL [facility] ABSOLUTE EOS 0.06 0.00 - 0.80 K/uL [facility] ABSOLUTE BASOS 0.03 0.00 - 0.09 K/uL [facility] Granulocytes, immature 0.00 0.00 - 0.05 K/uL [facility] Blood 08/24/2023 7:45 AM EDT 08/24/2023 7:51 AM EDT us Joana YAP LAB BLOOD BKR ORDERABLES Fi nal Result [address] [address] * (ABNORMAL) Comprehensive metabolic panel (08/24/2023 7:45 AM EDT) SODIUM 139 133 - 146 mmol/L [facility] POTASSIUM 4.3 3.3 - 5.1 mmol/L [facility] CHLORIDE 103 96 - 108 mmol/L [facility] CO2 26 21 - 35 mmol/L [facility] BUN 18 6 - 19 mg/dL [facility] CREATININE 0.80 0.5 - 1.5 mg/dL [facility] GLUCOSE 95 70 - 99 mg/dL [facility] ALBUMIN 4.5 3.9 - 4.8 g/dL [facility] TOTAL PROTEIN 6.7 6.5 - 8.0 g/dL [facility] CALCIUM 9.7 8.4 - 10.3 mg/dL [facility] ALKALINE PHOSPHATASE 76 39 - 117 U/L [facility] TOTAL BILIRUBIN 0.6 0.0 - 1.2 mg/dL [facility] AST 48(H) 0 - 37 U/L [facility] ALT 74(H) 0 - 40 U/L [facility] GLOBULIN 2.2 1 - 4.8 g/dL [facility] EGFR 82 >59 mL/min/1.7 3m2 [facility] Comment:Estimated glomerular filtration rate calculated using the CKD-EPI refit equation. ANION GAP 14 10 - 20 mmol/L [facility] Blood 08/24/2023 7:45 AM EDT 08/24/2023 7:51 AM EDT us Joana YAP LAB BLOOD BKR ORDERABLES Fi nal Result [address] [address] documented in this encounter Visit Diagnoses Diagnosis Routine general medical examination at a health care facility- Primary documented in this encounter Care Teams Talkback Host Relationship Specialty Start Date End Date David Seymour DO PCP - General Internal Medicine 04/06/17 David Seymour DO Historical LMR Provider 03/13/17 Caro Sandoval NP [address] [place] [address] [email or web address] Historical LMR Provider 03/13/17 Renee Mercedes MD [address] [place] [address], [facility] [address] [place] [address] [email or web address] Historical LMR Provider 03/13/17 documented as of this encounter Additional Source Comments The information contained in this document represents components of the legal health record. It is not the complete legal health record.[facility]
--- OUTSIDE RECORDS SUMMARY | 2025-04-06 11:21 | XMS_ITS | Clinical Summary ---
Author Organization [facility] Address [address] [facility] [place] [address] Phone Care Team Providers Care Substance Abuse Therapist Name Role Phone David Seymour DO Primary Care Provider [phone] Allergies No known active allergies Medications LORazepam (ATIVAN) 0.5 mg tablet Take 1 tablet (0.5 mg total) by mouth every 6 (six) hours if needed for anxiety. Max Daily Amount: 2 mg Active multivitamin with minerals tablet Take 1 tablet by mouth 1 (one) time each day. Active propranoloL (INDERAL) 10 mg tablet Take 1 tablet (10 mg total) by mouth 1 (one) time each day if needed (anxiety). Active Active Problems Problem Noted Date Diagnosed Date Chest pain 10/11/2024 Palpitations 06/15/2024 Assessment & Plan (03/12/2025 9:00 AM EDT): Patient has history of palpitations, previous Holter monitor showing supraventricular ectopy burden around 3.5%. She also has a history of sinus bradycardia. Previously seen by Dr. Roberts and decided not to start a beta-bernie due to her overall time in sinus bradycardia. She recently was seen by her PCP and started on 10 mg of propranolol daily, this caused hypotension yet no significant bradycardia noted on her watch. I advise she trial taking 5 mg of propranolol in the morning and 5 mg in the evening. Her PCP is already ordered an echocardiogram as well as a monitor. I advise she stay well-hydrated, we also discussed the other triggers for PACs and PVCs. We will follow-up in several months to evaluate for improvement on this treatment plan. Orders: ECG 12 lead MARCIAL (dyspnea on exertion) 12/02/2023 Overview (06/16/2024): Last Assessment & Plan: The patient does [...] minutes that does not resolve with rest. Palpitation 08/18/2023 Overview (06/16/2024): Last Assessment & Plan: Denies perception of [...] for any ongoing or worsening of symptoms. Fatigue 07/30/2022 Cardiovascular stress test abnormal 03/11/2022 Encounters Date Type Department Care Team Description 03/12/2025 8:10 AM EDT Office Visit [facility] Cardiology [facility] [address] [place] [address] Liset Torre NP Palpitations (Primary Dx) 03/02/2025 Telephone [facility] [address] [place] [address] Emilia Roberts MD from Last 3 Months Medical History Medical History Date Comments Tinea corporis DX:Tinea corpori s Iron deficiency anemia DX:Iron d eficiency anemia Depressive disorder DX:Depressiv e disorder Acute sinusitis DX:Acute sinusit is Acute bronchitis DX:Acute bronch itis Perioral dermatitis DX:Perioral dermatitis Multiple joint pain DX:Multiple joint pain Semimembranosus tendinitis DX:Se mimembranosus tendinitis Osteopenia DX:Osteopenia Fatigue DX:Fatigue Cough DX:Cough Pain in joint of left knee DX:Pa in in joint of left knee Calcaneal spur DX:Calcaneal spu r Low back pain DX:Low back pain Hernia of abdominal cavity DX:He rnia of abdominal cavity Dysuria DX:Dysuria Family History Medical History Relation Name Comments Other: coronary arteriosclerosis Maternal Grandfather Other: coronary arteriosclerosis Mother Relation Name Status Comments Maternal Grandfather Mother Other maternal uncle coronary cristian riosclerosis Social History Tobacco Use Types Packs/Day Years Used Date Smoking Tobacco: Never Smokeless Tobacco: Never Tobacco Cessation:Counseling Given: Not Answered Alcohol Use Standard Drinks/Week Comments Never 0 (1 standard drink = 0.6 oz pur e alcohol) Comments Unknown Sex and Gender Information Value Date Recorded Sex Assigned at Not on file Legal Sex Female 11:01 AM EDT Gender Identity Not on file Sexual Orientation Not on file Obstetrics History Last Filed Vital Signs Vital Sign Reading Time Taken Comments Blood Pressure 128/70 03/12/2025 8:08 AM EDT Pulse 69 03/12/2025 8:08 AM EDT Temperature - - Respiratory Rate - - Oxygen Saturation 97% 03/12/2025 8:08 AM EDT Inhaled Oxygen Concentration - - Weight 56.7 kg (125 lb) 03/12/2025 8:08 AM EDT Height 161.3 cm (5' 3.5 ) 03/12/2025 8:08 AM EDT Body Mass Index 21.8 03/12/2025 8:08 AM EDT Plan of Treatment Upcoming Encounters Date Type Department Care Team (Late st Contact Info) Description 05/14/2025 1:10 PM EST Office Visit [facility] [address] [place] [phone] Liset Torre NP [address] [place] [address] [address] [place] [phone] Health Maintenance Due Date Last Done Comments Colorectal Cancer Screening: Colonoscopy 1955 Hepatitis A Vaccines (1 of 2 - Risk 2-dose series) 1976 Hepatitis B Vaccines (1 of 3 - Risk 3-dose series) 2017 DTaP,Tdap,and Td Vaccines (2 - Td or Tdap) 01/22/2019 01/22/2009 Falls Risk Assessment 12/17/2023 Medicare Annual Wellness Visit 12/17/2023 Social Influencers of Health Screening 12/17/2023 Depression Screening 05/24/2024 COVID-19 Vaccine ( season) 2025 02/23/2024, 02/19/2023, 03/02/2022, Additional history exists Breast Cancer Screening 12/06/2026 12/06/2024, 08/12 Cholesterol Screening (Lipid Panel) 09/29/2029 09/29/2024, 08/24/2023 Osteoporosis Screening (Bone Density Screening) 01/08/2032 01/07/2022 Zoster Vaccines Completed 12/06/2020, 0705/2020, 09/27/2020 Pneumococcal Vaccine: 50+ Years Completed 02/13/2023, 01/22/2009 RSV Immunization Adult Patients Completed 06/04/2023 Hepatitis C Screening Completed 07/20/2024, 019 Influenza Vaccine Completed 03/01/2025, , 01/25/2024, Additional history exists HIB Vaccines Aged Out No longer eligi ble based on patient's age to complete this topic HPV Vaccines Aged Out No longer eligi ble based on patient's age to complete this topic IPV Vaccines Aged Out No longer eligi ble based on patient's age to complete this topic MMR Vaccines Aged Out No longer eligi ble based on patient's age to complete this topic Meningococcal ACWY Vaccine Aged Out N o longer eligible based on patient's age to complete this topic Meningococcal B Vaccine Aged Out No l onger eligible based on patient's age to complete this topic RSV Immunization Patients Under 20 months Aged Out No longer eligible based on patient's age to complete this topic Varicella Vaccines Aged Out No longer eligible based on patient's age to complete this topic Procedures Procedure Name Priority Date/Time Associated Diagnosis Comments ECG 12-LEAD Routine 03/12/2025 8:59 AM EDT Palpitations from Last 3 Months Results * ECG 12 lead (03/12/2025 8:59 AM EDT) Ventricular Rate ECG 69 BPM GEMUSE Atrial Rate 69 BPM GEMUSE P-R Interval 118 ms GEMUSE QRS Duration 80 ms GEMUSE Q-T Interval 360 ms GEMUSE QTc 385 ms GEMUSE P Wave Negley 87 degrees GEMUSE R Negley 91 degrees GEMUSE T Negley -31 degrees GEMUSE ECG Interpretation Sinus rhythm with Premature supraventricular complexes and with occasional Premature ventricular complexes Possible Left atrial enlargement Rightward axis ST and T wave abnormality, consider inferior ischemia Abnormal ECG When compared with ECG of 15-JUN-2024 15:33, Premature supraventricular complexes are now Present Confirmed by GUILLERMO SMITH ([id number]) on 04/04/2025 6:51:24 PM GEMUSE 03/12/2025 8:12 AM EDT 04/04/2025 6:51 PM EST us Liset Torre NP ECG ORDERABLES Edited Result - Final GEMUSE from Last 3 Months Insurance MEDICARE [facility] Care Teams Substance Abuse Therapist Relationship Specialty Start Date End Date David Seymour DO [address] [facility] [address] [place], [place] [facility] - General 08/19/23
--- OUTSIDE RECORDS SUMMARY | 2025-04-06 11:21 | XMS_ITS | Encounter Summary ---
Author Organization [facility] Address [address] [facility] [address] [place] [address] Phone Care Team Providers Care Filtration Supervisor Name Role Phone David Seymour DO Unavailable Caro Sandoval HAM TRIMMER Unavailable [phone] Renee Mercedes MD Unavailable [phone] David Seymour DO Primary Care Provider [phone] Reason for Referral * Outpatient Procedure - Closed Specialty Diagnoses / Procedures Referred By Radha bueno Referred To Contact Diagnoses Palpitations Procedures Stress Test Exercise Joana Bradshaw PA Phone: tel: fax: Referral ID Status Reason Start Date Expiration Date Visits Re quested Visits Authorized [id number] Closed 02/12/2022 02/12/2023 1 1 Encounter Details Date Type Department Care Team (Latest Contact Info) Description 02/12/2022 Transcribe Orders Virtual Department [address] [place] [address] Joana Bradshaw PA [address] [place] [address] [place] [address] Palpitations (Primary Dx) Social History Tobacco Use [...] Description 04/30/2025 2:00 PM EST Office Visit [facility] Plastic Surgery [address] [place] [address] Douglas Reyes MD [address] [place] [address] [email or web address] documented as of this encounter Results * Stress Test Exercise (03/11/2022 12:05 PM EDT) Max BP Systolic 154 mmHg [facility] Max BP Diastolic 70 mmHg [facility] Max HR 169 BPM [facility] Resting HR 82 BPM [facility] Resting BP Systolic 108 mmHg [facility] Resting BP Diastolic 70 mmHg [facility] Peak METS 17.2 METS [facility] Peak HR 157 BPM [facility] Anatomical Region Laterality Modality Heart Other 03/11/2022 [...] Palpitations documented in this encounter Care Teams Filtration Supervisor Relationship Specialty Start Date End Date David Seymour DO PCP - General Internal Medicine 04/06/17 David Seymour DO Historical LMR Provider 03/13/17 Caro Sandoval NP [address] [place] [address] Historical LMR Provider 03/13/17 Renee Mercedes MD [address] [place] [address], [facility] [address] [place] [address] Historical LMR Provider 03/13/17 documented as of this encounter Additional Source Comments The information contained in this document represents components of the legal health record. It is not the complete legal health record.[facility]
--- OUTSIDE RECORDS SUMMARY | 2025-04-06 11:22 | XMS_ITS | Encounter Summary ---
Author Organization [facility] Address [address] [place] [address] Phone Care Team Providers Care Blow Off Worker Name Role Phone David Seymour DO Unavailable Caro Sandoval NP Unavailable [phone] Reene Mercedes MD Unavailable [phone] David Seymour DO Primary Care Provider [phone] Encounter Details Date Type Department Care Team (Late st Contact Info) Description 11/04/2021 Procedure Pass [facility], Ct Scan - [address] [address] Social History Tobacco Use Types Packs/Day Years [...] 04/30/2025 2:00 PM EST Office Visit [facility] Plastic Surgery [address] [place] [address] Douglas Reyes MD [address] [place] [address] documented as of this encounter Visit Diagnoses Not on filedocumented in this encounter Care Teams Blow Off Worker Relationship Specialty Start Date End Date Jose LuisDavid berryDO PCP - General Internal Medicine 04/06/17 David Seymour DO Historical LMR Provider 03/13/17 Caro Sandoval NP [address] [place] [address] [email or web address] Historical LMR Provider 03/13/17 Renee Mercedes MD [address] [place] [address] Historical LMR Provider 03/13/17 documented as of this encounter Additional Source Comments The information contained in this document represents components of the legal health record. It is not the complete legal health record.[facility]
--- OUTSIDE RECORDS SUMMARY | 2025-04-06 11:22 | XMS_ITS | Encounter Summary ---
Author Organization [facility] Address [address] [facility] [address] [place] [address] Phone Care Team Providers Care Punch Card Operator Name Role Phone David Seymour DO Unavailable Caro Sandoval RECEPTION CLERK Unavailable [phone] Renee Mercedes MD Unavailable [phone] David Seymour DO Primary Care Provider [phone] Reason for Referral * MRI/CAT Scan - Closed Specialty Diagnoses / Procedures Referred By Contalka t Referred To Contact Radiology Diagnoses Trochanteric bursitis, left hip Procedures MRI Hip (Left) CHG MRI LOWER EXTREM JT, W/O CONTRAST Joana Bradshaw PA Phone: tel: fax: Referral ID Status Reason Start Date Expiration Date Visits Re quested Visits Authorized [id number] Closed 10/27/2021 12/26/2021 1 1 Encounter Details Date Type Department Care Team (Latest Contact Info) Description 10/27/2021 Transcribe Orders Virtual Department [address] [place] [address] Joana Bardshaw PA 6 [facility] [place] [address] Trochanteric bursitis, left hip (Primary Dx); Left [...] Description 04/30/2025 2:00 PM EST Office Visit [facility] Plastic Surgery [address] [place] [address] Douglas Reyes MD [address] [place] [address] [email or web address] documented as of this [...] hip documented in this encounter Care Teams Punch Card Operator Relationship Specialty Start Date End Date David Seymour DO [email or web address] PCP - General Internal Medicine 04/06/17 David Seymour DO [email or web address] Historical LMR Provider 03/13/17 Caro Sandoval NP [address] [place] [address] [email or web address] Historical LMR Provider 03/13/17 Renee Mercedes MD [address] [place] [address] [email or web address] Historical LMR Provider 03/13/17 documented as of this encounter Additional Source Comments The information contained in this document represents components of the legal health record. It is not the complete legal health record.[facility]
--- OUTSIDE RECORDS SUMMARY | 2025-04-06 11:22 | XMS_ITS | Encounter Summary ---
Author Organization [facility] Address [address] [facility] [address] [place] [address] Phone Care Team Providers Care Rn Assessment Name Role Phone David Seymour DO Unavailable Caro Sandoval PHYSICAL LABORATORY ASSISTANT Unavailable [phone] Renee Mercedes MD Unavailable [phone] David Seymour DO Primary Care Provider [phone] Reason for Referral * MRI/CAT Scan - Closed Specialty Diagnoses / Procedures Referred By Contalka t Referred To Contact Radiology Diagnoses Left knee pain, unspecified chronicity Procedures CT Knee (Left) CHG CT SCAN,LOWER EXTREMITY,W/O CONTRAST Joana Bradshaw PA Phone: tel: fax: Referral ID Status Reason Start Date Expiration Date Visits Re quested Visits Authorized [id number] Closed 11/05/2021 01/04/2022 1 1 Encounter Details Date Type Department Care Team (Latest Contact Info) Description 11/04/2021 Transcribe Orders Virtual Department 30 [place] [address] Joana Bradshaw PA 6 [facility] [address] [place] [address] Left knee pain, unspecified chronicity (Primary Dx) [...] EST Office Visit [facility] Plastic Surgery [address] [place] [address] Douglas Reyes MD [address] [place] [address], [address] [address] [email or web address] documented as of this encounter Results * [...] chronicity documented in this encounter Care Teams Rn Assessment Relationship Specialty Start Date End Date David Seymour DO PCP - General Internal Medicine 04/06/17 David Seymour DO Historical LMR Provider 03/13/17 Caro Sandoval NP [address] [place] [address] Historical LMR Provider 03/13/17 Renee Mercedes MD [address] [place] [address] Historical LMR Provider 03/13/17 documented as of this encounter Additional Source Comments The information contained in this document represents components of the legal health record. It is not the complete legal health record.[facility]
--- OUTSIDE RECORDS SUMMARY | 2025-04-06 11:23 | XMS_ITS | Encounter Summary ---
Author Organization [facility] Address [address] [facility] [place] [address] Phone Care Team Providers Care Director Of Philanthropy Name Role Phone David Seymour DO Unavailable Caro Sandoval NP Unavailable [phone] Renee Mercedes MD Unavailable [phone] David Seymour DO Primary Care Provider [phone] Encounter Details Date Type Department Care Team (Late st Contact Info) Description 10/27/2021 Procedure Pass [facility], [address] [address] Social History Tobacco Use Types Packs/Day Years [...] EST Office Visit [facility] Plastic Surgery [address] [place] [address] Douglas Reyes MD [address] [place] [address] [email or web address] documented as of this encounter Visit Diagnoses Not on filedocumented in this encounter Care Teams Director Of Philanthropy Relationship Specialty Start Date End Date Jose LuisDavid berryDO PCP - General Internal Medicine 04/06/17 David Seymour JulietDO Historical LMR Provider 03/13/17 Caro Sandoval NP [address] [place] [address] [email or web address] Historical LMR Provider 03/13/17 Renee Mercedes MD [address] [place] [address] Historical LMR Provider 03/13/17 documented as of this encounter Additional Source Comments The information contained in this document represents components of the legal health record. It is not the complete legal health record.[facility]
--- OUTSIDE RECORDS SUMMARY | 2025-04-06 11:23 | XMS_ITS | Encounter Summary ---
Author Organization [facility] Address [address] [facility] [address] [place] [address] Phone Care Team Providers Care Big Data Engineer Name Role Phone David Seymour DO Unavailable Caro Sandoval FUSION ANALYST Unavailable Mikey Leong MD Unavailable [phone] Renee Mercedes MD Unavailable Aidee Valladares FUSION ANALYST Unavailable Arnaldo Dillon MD Unavailable [phone] Anahi Persaud RDCS Unavailable [email or web address] Ana Cristina Parmar MD Unavailable [phone] Philip Stewart MD Unavailable [phone] David Seymour DO Primary Care Provider [phone] Encounter Details Date Type Department Care Team (Late st Contact Info) Description 12/28/2019 Transcribe Orders [facility] PFT Lab 30 [place] [address] Simin Kimble, CRUZ [address] [place] [address] Social History Tobacco Use Types Packs/Day Years [...] Description 04/30/2025 2:00 PM EST Office Visit [facility] Plastic Surgery [address] [place] [address] Douglas Reyes MD [address] [place] [address] documented as of this encounter Visit Diagnoses Not on filedocumented in this encounter Care Teams Big Data Engineer Relationship Specialty Start Date End Date David Seymour DO PCP - General Internal Medicine 04/06/17 David Seymour DO Historical LMR Provider 03/13/17 Caro Sandoval FUSION ANALYST [address] [place] [address] Historical LMR Provider 03/13/17 Mikey Leong MD [address] [place] [address] [email or web address] Historical LMR Provider 03/13/17 05/31/21 Renee Mercedes MD [address] [place] [address] Historical LMR Provider 03/13/17 Aidee Valladares FUSION ANALYST 21 [place] [address] [email or web address] Historical LMR Provider 03/13/17 2 Arnaldo Dillon MD 22 [facility], [address] [place] [address] Historical LMR Provider 03/13/17 05/31/21 Anahi Persaud, RDCS Historical LMR Provider 03/13/17 05/31/21 Ana Cristina Parmar MD [address], [place] [address] Historical LMR Provider 03/13/17 2 Philip Stewart MD [address] [place] [address] Historical LMR Provider 03/13/17 2 documented as of this encounter Additional Source Comments The information contained in this document represents components of the legal health record. It is not the complete legal health record.[facility]
--- OUTSIDE RECORDS SUMMARY | 2025-04-06 11:24 | XMS_ITS | Encounter Summary ---
Author Organization [facility] Address [address] [place] [address] Phone Care Team Providers Care Box Sealing Inspector Name Role Phone David Seymour DO Unavailable Caro Sandoval PRODUCTION CLOTH CUTTER Unavailable [phone] Renee Mercedes MD Unavailable [phone] David Seymour DO Primary Care Provider [phone] Reason for Referral * MRI/CAT Scan - Closed Specialty Diagnoses / Procedures Referred By Contalka t Referred To Contact Radiology Diagnoses Liver disease, unspecified Procedures MRI Abdomen CHG MRI, ABDOMEN, COMBO Joana Bradshaw PA 6 [facility] [place] [address] Phone: tel: fax: Referral ID Status Reason Start Date Expiration Date Visits Re quested Visits Authorized [id number] Closed 09/13/2023 11/12/2023 1 1 Encounter Details Date Type Department Care Team (Latest Contact Info) Description 09/15/2023 Transcribe Orders Virtual Department 30 [place] [address] Joana Bradshaw PA 6 [facility] [place] [address] Liver disease, unspecified (Primary Dx) Social History [...] Description 04/30/2025 2:00 PM EST Office Visit [facility] Plastic Surgery [address] [place] [address] Douglas Reyes MD [address] [place] [address] documented as of this encounter Results * [...] unspecified documented in this encounter Care Teams Box Sealing Inspector Relationship Specialty Start Date End Date David Seymour DO PCP - General Internal Medicine 04/06/17 Davdi Seymour DO Historical LMR Provider 03/13/17 Caro Sandoval NP [address] [place] [address] Historical LMR Provider 03/13/17 Renee Mercedes MD [address] [place] [address] [address] [place] [address] Historical LMR Provider 03/13/17 documented as of this encounter Additional Source Comments The information contained in this document represents components of the legal health record. It is not the complete legal health record.[facility]
--- OUTSIDE RECORDS SUMMARY | 2025-04-06 11:24 | XMS_ITS | Encounter Summary ---
Author Organization [facility] Address [address] [facility] [address] [place] [address] Phone Care Team Providers Care Freight Hustler Name Role Phone Lion David Chung DO Unavailable Caro Sandoval BALANCE WHEEL SCREW HOLE TAPPER Unavailable [phone] Renee Mercedes MD Unavailable [phone] David Seymour DO Primary Care Provider [phone] Encounter Details Date Type Department Care Team (Late st Contact Info) Description 09/12/2021 Ancillary Orders Virtual Department 30 [place] [address] Joana Bradshaw PA [address] [place] [address] [place] [address] Osteopenia, unspecified location; Other specified disorders of [...] Description 04/30/2025 2:00 PM EST Office Visit [facility] Plastic Surgery 40 [place] [address] Douglas Reyes MD [address] [place] [address], [address] [place] [address] [email or web address] documented as of this encounter Results * [...] bone mineral density was calculated at 0.599 gm/jz7vnbu a T- score of -2.3 falling within [...] lumbar spine and bilateral hip bone density [email or web address]. Joana UGARTE BD BONE DENSITY DEXA Fi nal Result documented in this encounter Visit Diagnoses Diagnosis Osteopenia, unspecified location Other specified disorders of bone density and structure, right shoulder Osteopenia, unspecified location Other specified disorders of bone density and structure, right shoulder documented in this encounter Care Teams Freight Hustler Relationship Specialty Start Date End Date David Seymour DO PCP - General Internal Medicine 04/06/17 David Seymour DO Historical LMR Provider 03/13/17 Caro Sandoval NP [address] [place] [address] Historical LMR Provider 03/13/17 Renee Mercedes MD [address] [place] [address] 102 [place] [address] [email or web address] Historical LMR Provider 03/13/17 documented as of this encounter Additional Source Comments The information contained in this document represents components of the legal health record. It is not the complete legal health record.[facility]
--- OUTSIDE RECORDS SUMMARY | 2025-04-06 11:24 | XMS_ITS | Encounter Summary ---
Author Organization [facility] Address [address] [place] [address] Phone Care Team Providers Care Helper Teacher Name Role Phone David Seymour DO Unavailable Caro Sandoval PHYSICAL DAMAGE APPRAISER Unavailable [phone] Mikey Leong MD Unavailable [phone] Renee Mercedes MD Unavailable [phone] Aidee Valladares PHYSICAL DAMAGE APPRAISER Unavailable Arnaldo Dillon MD Unavailable Anahi Persaud RD Unavailable [email or web address] Ana Cristina Parmar MD Unavailable [phone] Philip Stewart MD Unavailable [phone] David Seymour DO Primary Care Provider [phone] Encounter Details Date Type Department Care Team (Late st Contact Info) Description 03/25/2021 Procedure Pass [address] [address] Social History Tobacco Use Types Packs/Day Years [...] 04/30/2025 2:00 PM EST Office Visit [facility] Pl[facility] Surgery [address] [place] [address] Douglas Reyes MD [address] [place] [address] [email or web address] documented as of this encounter Visit Diagnoses Not on filedocumented in this encounter Care Teams Helper Teacher Relationship Specialty Start Date End Date David Seymour DO PCP - General Internal Medicine 04/06/17 David Seymour DO Historical LMR Provider 03/13/17 Caro Sandoval, PHYSICAL DAMAGE APPRAISER [address] [place] [address] [email or web address] Historical LMR Provider 03/13/17 Mikey Leong MD [address] [place] [address] [email or web address] Historical LMR Provider 03/13/17 05/31/21 Renee Mercedes MD [address] [place] [address] Historical LMR Provider 03/13/17 Aidee Valladares, PHYSICAL DAMAGE APPRAISER [address] [place] [address] [email or web address] Historical LMR Provider 03/13/17 2 Arnaldo Dillon MD 22 [facility], [address] [place] [address] [email or web address] Historical LMR Provider 03/13/17 05/31/21 Anahi Persaud, RDCS [email or web address] Historical LMR Provider 03/13/17 05/31/21 Ana Cristina Parmar MD [address], [place] [address] Historical LMR Provider 03/13/17 2 Philip Stewart MD 61 [place] [address] Historical LMR Provider 03/13/17 2 documented as of this encounter Additional Source Comments The information contained in this document represents components of the legal health record. It is not the complete legal health record.[facility]
--- OUTSIDE RECORDS SUMMARY | 2025-04-06 11:24 | XMS_ITS | Encounter Summary ---
Author Organization [facility] Address [address] [place] [address] Phone Care Team Providers Care Chalker Soles Name Role Phone David Seymour DO Unavailable Caro Sandoval CLINIC ASSISTANT Unavailable [phone] Renee Mercedes MD Unavailable [phone] David Seymour DO Primary Care Provider [phone] Encounter Details Date Type Department Care Team (Late st Contact Info) Description 09/15/2023 Procedure Pass [facility], [address] [address] Social History Tobacco Use Types Packs/Day Years [...] Description 04/30/2025 2:00 PM EST Office Visit [facility] Pl[facility] Surgery [address] [place] [address] Douglas Reyes MD [address] [place] [address] documented as of this encounter Visit Diagnoses Not on filedocumented in this encounter Care Teams Chalker Soles Relationship Specialty Start Date End Date David Seymour DO PCP - General Internal Medicine 04/06/17 David Seymour DO Historical LMR Provider 03/13/17 Caro Sandoval NP [address] [place] [address] Historical LMR Provider 03/13/17 Renee Mercedes MD [address] [place] [address] Historical LMR Provider 03/13/17 documented as of this encounter Additional Source Comments The information contained in this document represents components of the legal health record. It is not the complete legal health record.[facility]
--- OUTSIDE RECORDS SUMMARY | 2025-04-06 11:24 | XMS_ITS | Clinical Summary ---
Author Organization [facility] Address [address] [facility] [address] [place] [address] Phone Care Team Providers Care Customer Assistance Associate Name Role Phone Sheila Zaldivar DO Unavailable Caro Sandoval MRP CONTROLLER Unavailable [phone] Renee Mercedes MD Unavailable [phone] Sheila Zaldivar DO Primary Care Provider [phone] Allergies Active Allergy Reactions Criticality Noted Date [...] ORAL Take by mouth. Ac tive calcium-vits I8-Q-J1-mineral s 166.75 mg- 166.75 unit Cap calcium [...] and saline nasal rinse. Given samples of [place] pot and sinus rinse bottle, encouraged use [...] any other arrhythmias when she is symptomatic Immunizations Immunization Administration Dates Next Due COVID-19 [...] 04/30/2025 2:00 PM EST Office Visit [facility] Surgery 40 [place] [address] Douglas Reyes MD 40 [facility], [address] [address] Health Maintenance Due Date Last Done Comments DEPRESSION SCREENING 1969 COLOGUARD 2002 FIT TEST 2002 FOBT 2002 SIGMOIDOSCOPY 2002 VIRTUAL COLONOSCOPY 2002 Adult Td,Tdap Booster 01/22/2019 01/22/2009 INFLUENZA VACCINE (#1) 2024 , 02/19/2023, 03/02/2022, Additional history exists COVID-19 VACCINE (2024- season) 2025 02/23/2024, 02/19/2023, 03/02/2022, Additional history exists MAMMOGRAM 12/06/2025 12/06/2024, 07/23, 07/07/2022, Additional history exists COLONOSCOPY 04/22/2028 04/22/2018 COLORECTAL CANCER SCREENING 04/22/2028 LIPID PANEL 09/29/2029 09/29/2024, 04/0 06/2023, 08/07/2022, Additional history exists ZOSTER VACCINES Completed 12/06/2020, 07/0 05/2020, 09/27/2020, Additional history exists OSTEOPOROSIS SCREENING INITIAL (ONE-TIME) Completed 01/07/2022 PNEUMOCOCCAL VACCINES (50+ years) Completed 02/13/2023, 01/22/2009 RSV VACCINE Completed 06/04/2023 SMOKING STATUS SCREENING (Once After 26 Yrs) Completed 07/14/2024 HEPATITIS C SCREENING Completed 07/20/2024 , 07/20/2024, 07/20/2024, Additional history exists HEPATITIS A VACCINES Aged Out No long er eligible based on patient's age to complete this topic HIB VACCINES Aged Out No longer eligi ble based on patient's age to complete this topic IPV VACCINES Aged Out No longer eligi ble based on patient's age to complete this topic MENINGOCOCCAL VACCINES (ACWY) Aged Out No longer eligible based on patient's age to complete this topic MENINGOCOCCAL VACCINES (B) Aged Out N o longer eligible based on patient's age to complete this topic Medical Devices Implanted Type Area Solar Design Engineer Device Identifier Shelf Expiration Date Model / Serial / Lot Left Shouler Procedures Procedure Name Priority Date/Time Associated Diagnosis Comments BI MAMMOGRAM SCREENING WITH TOMOSYNTHESIS WITH CAD (BILATERAL) Routine 12/06/2024 9:45 AM EDT Breast screening LIPID PANEL Routine 09/29/2024 7:06 AM EDT Routine general medical examination at a health care facility HEPATITIS C ANTIBODY, QUALITATIVE Routine [...] (09/29/2024 7:06 AM EDT) HDL 102 mg/dL [facility] Comment: Interpretation <40 mg/dL: Low HDL cholesterol (major risk factor for CHD) Greater than or equal to 60 mg/dL: High HDL cholesterol ( negative risk factor for CHD) HDL - cholesterol is affected by a number of factors, e.g. smoking, excerise, hormones, sex and age. CHOLESTEROL 236 0 - 240 mg/dL [facility] TRIGLYCERIDES 65 30 - 160 mg/dL [facility] LDL 121 50 - 129 mg/dL [facility] Comment: LDL levels in terms of risk for coronary heart disease: <100 mg/dL: Optimal 100-129 mg/dL: Near or above optimal 130-159 mg/dL: Borderline high 160-189 mg/dL: High >190 mg/dL: Very High CARDIAC RISK RATIO 2.3(L) 3.3 - 4.4 C [facility] Blood 09/29/2024 7:06 AM EDT 09/29/2024 7:11 AM EDT us Joana YAP LAB BLOOD BKR ORDERABLES Fi nal Result [address] [address] * Hepatitis C antibody, qualitative (07/20/2024 10:56 AM EST) HCV NON-REACTIV E NON-REACTI VE [facility] Blood 07/20/2024 10:5 6 AM EST 07/20/2024 11:01 AM EST us Sudeep Castro MD LAB BLOOD BKR ORDERABLES Fin al Result [facility] [address] [place] [address] * BD DXA AXIAL (SPINE) WITH HIP [...] bone mineral density was calculated at 0.599 gm/yf0ktze a T- score of -2.3 falling within [...] lumbar spine and bilateral hip bone density [id number]. us Joana Orellanaeren YAP IMG BD BONE DENSITY DEXA Fi nal Result * ENDOSCOPY, COLON (04/22/2018 8:29 AM EST) Narrative Transcriptions Sudeep Castro MD - 04/22/2018 8:29 AM EST Patient Name: Verito Chapa Attending MD:: SUDEEP CASTRO MD Procedure Date: 04/22/2018 8:29 AM Date of : 1955 Age: 62 Admit Type: Outpatient Gender: Female Room: [place] [address] Referring MD: SHEILA ZALDIVAR DO Exam Type: [...] monitored continuously. The Olympus adult variable colonoscope [id number] #[id number] was introduced through the anus and [...] 8:29 AM Procedure Code(s): --- Professional --- 74557, Colonoscopy, flexible; diagnostic, including collection of specimen(s) by brushing or washing, when performed (separateprocedure) --- Technical --- 55479, Colonoscopy, flexible; diagnostic, including collection of specimen(s) by brushing or washing, when performed (separateprocedure) Diagnosis Code(s): --- Professional --- Z12.11, Encounter for screening for malignant neoplasm of colon --- Technical --- Z12.11, Encounter for screening for malignant neoplasm of colon CPT copyright 2016 [employer] [place] [employer]. All rights reserved. The codes documented in this report are preliminary and upon medical record coder reviewmay be revised to meet current compliance requirements. 30 [place] [address] us Sheila A Bigda DO GI PROCEDURE ORDERABLES Final Re sult from Last 3 Months or Most Recently Relevant to Health Maintenance Insurance [facility] [address] [place] [address] [address] [place] [address] [place] [address] [place] [address]O [facility] Care Teams Customer Assistance Associate Relationship Specialty Start Date End Date Sheila Zaldivar DO PCP - General Internal Medicine 04/06/17 Sheila Zaldivar DO Historical LMR Provider 03/13/17 Caro Sandoval NP [address] [place] [address] Historical LMR Provider 03/13/17 Renee Mercedes MD 22 [facility], [place] [address] [email or web address] Historical LMR Provider 03/13/17 Additional Source Comments The information contained in this document represents components of the legal health record. It is not the complete legal health record.[facility]
--- OUTSIDE RECORDS SUMMARY | 2025-04-06 11:24 | XMS_ITS | Clinical Summary ---
Author Organization [facility] Address [address] [place] [address] Care Team Providers Care Polytechnic Teacher Name Role Phone David Seymour DO Primary Care Provider [phone] Allergies Active Allergy Reactions Criticality Noted Date [...] Description 01/16/2025 8:00 AM EDT Office Visit [facility] [address] [place] [address] Cali Kapser MD Chronic rhinitis (Primary Dx); Tinnitus of both ears; Eustachian tube dysfunction, bilateral from Last 3 Months Immunizations Immunization Administration [...] Additional history exists COVID-19 Vaccine (2 - season) 2025 09/26/2021 RSV Vaccine 50 years and older and Patients (1 - 1-dose 75+ series) 2032 Zoster (Shingles) Vaccine Completed 2020, 11/21/2020, 09/27/2020 Hepatitis B Vaccines Aged Out No long er eligible based on patient's age to complete this topic Insurance MEDICARE PART A & B [employer] Care Teams Polytechnic Teacher Relationship Specialty Start Date End Date David Seymour DO 6 [facility] [place] [address] PCP - General 01/16/25
--- OUTSIDE RECORDS SUMMARY | 2025-04-06 11:24 | XMS_ITS | Encounter Summary ---
Author Organization [facility] Address [address] [facility] [address] [place] [address] Phone Care Team Providers Care Metal Finisher Name Role Phone David Seymour DO Unavailable Caro Sandoval SLIDE ATTENDANT Unavailable [phone] Mikey Leong MD Unavailable [phone] Renee Mercedes MD Unavailable Aidee Valladares SLIDE ATTENDANT Unavailable Arnaldo Dillon MD Unavailable [phone] Anahi Persaud RDCS Unavailable [email or web address] Ana Cristina Parmar MD Unavailable [phone] Philip Stewart MD Unavailable [phone] David Seymour DO Primary Care Provider [phone] Encounter Details Date Type Department Care Team (Latest Contact Info) Description 12/28/2019 Transcribe Orders [facility] PFT Lab 30 [place] [address] Simin Kimble, CRUZ [address] [place] [address] [email or web address] Dyspnea, unspecified type (Primary Dx) Social [...] Description 04/30/2025 2:00 PM EST Office Visit [facility] Plastic Surgery [address] [place] [address] Douglas Reyes MD [address] [place] [address] [email or web address] documented as of this encounter Results * Pulmonary Function Test Reason for Exam: Other (specify) (Dyspnea unspecified); Performing Location: [facility] (05/06/2020 10:24 AM EST) FEV1 FVC FEV1/FVC [...] Primary documented in this encounter Care Teams Metal Finisher Relationship Specialty Start Date End Date David Seymour DO [email or web address] PCP - General Internal Medicine 04/06/17 David Seymour DO [email or web address] Historical LMR Provider 03/13/17 Caro Sandoval NP [address] [place] [address] [email or web address] Historical LMR Provider 03/13/17 Mikey Leong MD [address] [place] [address] [email or web address] Historical LMR Provider 03/13/17 05/31/21 Renee Mercedes MD [address] [address] Historical LMR Provider 03/13/17 Aidee Valladares NP [address] [place] [address] [email or web address] Historical LMR Provider 03/13/17 2 Arnaldo Dillon MD 22 [facility], [address] [place] [address] Historical LMR Provider 03/13/17 05/31/21 Anahi Persaud, RDCS Historical LMR Provider 03/13/17 05/31/21 Ana Cristina Parmar MD [address], [place] [address] Historical LMR Provider 03/13/17 2 Philip Stewart MD [address] [place] [address] Historical LMR Provider 03/13/17 2 documented as of this encounter Additional Source Comments The information contained in this document represents components of the legal health record. It is not the complete legal health record.[facility]
--- OUTSIDE RECORDS SUMMARY | 2025-04-06 11:24 | XMS_ITS | Encounter Summary ---
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 Procedures MRI Abdomen CHG MRI, ABDOMEN, COMBO Joana Bradshaw PA 6 [facility] [place] [address] Phone: tel: fax: Referral ID Status Reason Start Date Expiration Date Visits Re quested Visits Authorized [id number] Closed 03/03/2024 05/02/2024 1 1 Encounter Details Date Type Department Care Team (Latest Contact Info) Description 03/03/2024 Transcribe Orders Virtual Department 30 [place] [address] Joana Bradshaw PA 6 [facility] [place] [address] Right knee pain, unspecified chronicity (Primary Dx); [...] 04/30/2025 2:00 PM EST Office Visit [facility] Plastic Surgery [address] [place] [address] Douglas Reyes MD [address] [place] [address] [email or web address] documented as of this encounter [...] clinician's provided indication for this examination in [facility]:Outside Radiology Order; liver lesion. TECHNIQUE: Multiplanar MR [...] clinician's provided indication for this examination in [facility]: Outside Radiology Order; right hip pain COMPARISON: Pelvis/bilateral hip radiographs 08/14/2021 Procedure Note Lisa Coelho MD - 03/07/2024 XR HIP 2 VW RIGHT PLUS PELVIS 03/07/2024 3:07 PM Referring clinician's provided indication for this examination in [facility]:Outside Radiology Order; right hip pain COMPARISON: Pelvis/bilateral [...] clinician's provided indication for this examination in [facility]: Outside Radiology Order; right hip pain COMPARISON: None Procedure Note Lisa Coelho MD - 03/07/2024 XR KNEE 4 OR MORE VIEWS (RIGHT) 03/07/2024 3:07 PM Referring clinician's provided indication for this examination in [facility]:Outside Radiology Order; right hip pain COMPARISON: None [...] elsewhere documented in this encounter Care Teams Can Dragger Relationship Specialty Start Date End Date Lion David ChungDO PCP - General Internal Medicine 04/06/17 David Seymour DO Historical LMR Provider 03/13/17 Caro Sandoval NP [address] [place] [address] [email or web address] Historical LMR Provider 03/13/17 Renee Mercedes MD [address] [place] [address] Historical LMR Provider 03/13/17 documented as of this encounter Additional Source Comments The information contained in this document represents components of the legal health record. It is not the complete legal health record.[facility]
--- OUTSIDE RECORDS SUMMARY | 2025-04-06 11:24 | XMS_ITS | Encounter Summary ---
Author Organization [facility] Address [address] [facility] [address] [place] [address] Phone Care Team Providers Care Unhairer Name Role Phone David Seymour DO Unavailable Caro Sandoval CASE MAKER Unavailable [phone] Mikey Leong MD Unavailable [phone] Renee Mercedes MD Unavailable [phone] Aidee Valladares CASE MAKER Unavailable Arnaldo Dillon MD Unavailable Anahi Persaud RDCS Unavailable [email or web address] Ana Cristina Parmar MD Unavailable [phone] Philip Stewart MD Unavailable [phone] David Seymour DO Primary Care Provider [phone] Encounter Details Date Type Department Care Team (Late st Contact Info) Description 05/02/2020 Transcribe Orders [facility] PFT Lab 30 [place] [address] Simin Kimble, CRUZ [address] [place] [address] [email or web address] Social History Tobacco Use Types Packs/Day Years [...] Description 04/30/2025 2:00 PM EST Office Visit [facility] Plastic Surgery [address] [place] [address] Douglas Reyes MD [address] [place] [address] [email or web address] documented as of this encounter Visit Diagnoses Not on filedocumented in this encounter Care Teams Unhairer Relationship Specialty Start Date End Date David Seymour DO PCP - General Internal Medicine 04/06/17 David Seymour DO Historical LMR Provider 03/13/17 Caro Sandoval CASE MAKER [address] [place] [address] Historical LMR Provider 03/13/17 Mikey Leong MD [address] [place] [address] [email or web address] Historical LMR Provider 03/13/17 05/31/21 Renee Mercedes MD [address] [place] [address] [email or web address] Historical LMR Provider 03/13/17 Aidee Valladares CASE MAKER 21 [place] [address] [email or web address] Historical LMR Provider 03/13/17 2 Arnaldo Dillon MD 22 [facility], [address] [place] [address] Historical LMR Provider 03/13/17 05/31/21 Anahi Persaud, RDCS Historical LMR Provider 03/13/17 05/31/21 Ana Cristina Parmar MD [address] [address] Historical LMR Provider 03/13/17 2 Philip Stewart MD [address] [place] [address] Historical LMR Provider 03/13/17 2 documented as of this encounter Additional Source Comments The information contained in this document represents components of the legal health record. It is not the complete legal health record.[facility]
--- OUTSIDE RECORDS SUMMARY | 2025-04-06 11:25 | XMS_ITS | Encounter Summary ---
Author Organization [facility] Address [address] [address] Phone Care Team Providers Care Retail Merchandiser Technician Name Role Phone David Seymour DO Unavailable Caro Sandoval PLATING FOREMAN Unavailable [phone] Mikey Leong MD Unavailable [phone] Renee Mercedes MD Unavailable [phone] Aidee Valladares PLATING FOREMAN Unavailable Arnaldo Dillon MD Unavailable Anahi Persaud RDCS Unavailable [email or web address] Ana Cristina Parmar MD Unavailable [phone] Philip Stewart MD Unavailable [phone] David Seymour DO Primary Care Provider [phone] Encounter Details Date Type Department Care Team (Late st Contact Info) Description 03/21/2020 Ancillary Orders Virtual Department 30 [place] [address] David Seymour DO [address] [facility] [place] [address] [email or web address] Breast screening Social History Tobacco [...] Description 04/30/2025 2:00 PM EST Office Visit [facility] Plastic Surgery [address] [place] [address] Douglas Reyes MD [address] [place] [address] [email or web address] documented as of this [...] unspecified documented in this encounter Care Teams Retail Merchandiser Technician Relationship Specialty Start Date End Date David Seymour DO PCP - General Internal Medicine 04/06/17 Lion David ChungDO Historical LMR Provider 03/13/17 Caro Sandoval PLATING FOREMAN [address] [place] [address] [email or web address] Historical LMR Provider 03/13/17 Mikey Leong MD [address] [place] [address] [email or web address] Historical LMR Provider 03/13/17 05/31/21 Renee Mercedes MD [address] [place] [address] [email or web address] Historical LMR Provider 03/13/17 Aidee Valladares PLATING FOREMAN [address] [place] [address] [email or web address] Historical LMR Provider 03/13/17 2 Arnaldo Dillon MD 22 [facility], 2nd [place] [address] Historical LMR Provider 03/13/17 05/31/21 Anahi Persaud, CS Historical LMR Provider 03/13/17 05/31/21 Ana Cristina Parmar MD [address], [place] [address] Historical LMR Provider 03/13/17 2 Philip Stewart MD 61 [place] [address] Historical LMR Provider 03/13/17 2 documented as of this encounter Additional Source Comments The information contained in this document represents components of the legal health record. It is not the complete legal health record.[facility]
--- OUTSIDE RECORDS SUMMARY | 2025-04-06 11:25 | XMS_ITS | Encounter Summary ---
Author Organization [facility] Address [address] [facility] [address] [place] [address] Phone Care Team Providers Care Manager Environmental Name Role Phone David Seymour DO Unavailable Caro Sandoval BUTCHER MEAT Unavailable [phone] Mikey Leong MD Unavailable [phone] Renee Mercedes MD Unavailable [phone] Aidee Valladares BUTCHER MEAT Unavailable [phone] Arnaldo Dillon MD Unavailable [phone] Anahi Persaud RDCS Unavailable [email or web address] Ana Cristina Parmar MD Unavailable [phone] Philip Stewart MD Unavailable [phone] David Seymour DO Primary Care Provider [phone] Encounter Details Date Type Department Care Team (Late st Contact Info) Description 04/22/2018 Procedure Pass [facility] Endoscopy Admitting Dept Virtual Department 30 [place] [address] Social History Tobacco Use Types Packs/Day Years [...] [facility] 40 [place] [address] Douglas Reyes MD [address] [place] [address] [email or web address] documented as of this encounter Visit Diagnoses Not on filedocumented in this encounter Care Teams Manager Environmental Relationship Specialty Start Date End Date David Seymour DO PCP - General Internal Medicine 04/06/17 David Seymour DO Historical LMR Provider 03/13/17 Caro Sandoval, BUTCHER MEAT [address] [place] [address] [email or web address] Historical LMR Provider 03/13/17 Mikey Leong MD [address] [place] [address] [email or web address] Historical LMR Provider 03/13/17 05/31/21 Renee Mercedes MD [address] [place] [address] 102 [place] [address] [email or web address] Historical LMR Provider 03/13/17 Aidee Valladares, BUTCHER MEAT [address] [place] [address] [email or web address] Historical LMR Provider 03/13/17 2 Arnaldo Dillon MD 22 [facility], [address] [place] [address] Historical LMR Provider 03/13/17 05/31/21 Anahi Persaud, RDCS [email or web address] Historical LMR Provider 03/13/17 05/31/21 Ana Cristina Parmar MD [address], [place] [address] Historical LMR Provider 03/13/17 2 Philip Stewart MD 61 [place] [address] Historical LMR Provider 03/13/17 2 documented as of this encounter Additional Source Comments The information contained in this document represents components of the legal health record. It is not the complete legal health record.[facility]
--- OUTSIDE RECORDS SUMMARY | 2025-04-06 11:25 | XMS_ITS | Encounter Summary ---
Author Organization [facility] Address [address] [facility] [address] [place] [address] Phone Care Team Providers Care Director Of Vocational Training Name Role Phone David Seymour DO Unavailable Caro Sandoval NP Unavailable [phone] Renee Mercedes MD Unavailable [phone] David Seymour DO Primary Care Provider [phone] Encounter Details Date Type Department Care Team (Late st Contact Info) Description 07/02/2022 Procedure Pass [facility], [address] [address] Social History Tobacco Use Types Packs/Day Years [...] 04/30/2025 2:00 PM EST Office Visit [facility] Plastic Surgery [address] [place] [address] Douglas Reyes MD [address] [place] [address] [email or web address] documented as of this encounter Visit Diagnoses Not on filedocumented in this encounter Care Teams Director Of Vocational Training Relationship Specialty Start Date End Date Jose LuisDavid berryDO PCP - General Internal Medicine 04/06/17 David Seymour JulietDO Historical LMR Provider 03/13/17 Caro Sandoval NP [address] [place] [address] [email or web address] Historical LMR Provider 03/13/17 Renee Mercedes MD [address] [place] [address] Historical LMR Provider 03/13/17 documented as of this encounter Additional Source Comments The information contained in this document represents components of the legal health record. It is not the complete legal health record.[facility]
--- OUTSIDE RECORDS SUMMARY | 2025-04-06 11:25 | XMS_ITS | Encounter Summary ---
Author Organization [facility] Address [address] [facility] [address] [place] [address] Phone Care Team Providers Care Nurse Infection Control Name Role Phone David Seymour DO Unavailable Caro Sandoval HOT BOX CHECKER Unavailable [phone] Renee Mercedes MD Unavailable [phone] David Seymour DO Primary Care Provider [phone] Encounter Details Date Type Department Care Team (Latest Contact Info) Description 03/24/2022 Ancillary Orders Virtual Department 30 [place] [address] Joana Bradshaw PA [address] [place] [address] [place] [address] Abnormal result of other cardiovascular function study [...] [facility] Plastic Surgery [address] [place] [address] Douglas Reyes MD [address] [place] [address] [email or web address] documented as of this encounter Results * NC Stress Result for Nuclear Stress Test (03/24/2022 10:58 AM EDT) Max BP Systolic 148 mmHg [facility] Max BP Diastolic 56 mmHg [facility] Max HR 179 BPM [facility] Resting HR 66 BPM [facility] Resting BP Systolic 118 mmHg [facility] Resting BP Diastolic 70 mmHg [facility] Peak METS 17.2 METS [facility] Peak HR 157 BPM [facility] Anatomical Region Laterality Modality Heart Other [...] When leads were placed in the stress paper testing supervisor position, there were diffuse nonspecific ST T [...] and will be reported separately. Tino Wilcox HOT BOX CHECKER with Dr Pradhan . us Joana YAP CV NM CARDIAC Final Resul t documented in this encounter Visit Diagnoses Diagnosis Abnormal result of other cardiovascular function study Abnormal result of other cardiovascular function study documented in this encounter Care Teams Nurse Infection Control Relationship Specialty Start Date End Date David Seymour DO [email or web address] PCP - General Internal Medicine 04/06/17 David Seymour DO [email or web address] Historical LMR Provider 03/13/17 Caro Sandoval NP [address] [place] [address] [email or web address] Historical LMR Provider 03/13/17 Renee Mercedes MD [address] [place] [address] [email or web address] Historical LMR Provider 03/13/17 documented as of this encounter Additional Source Comments The information contained in this document represents components of the legal health record. It is not the complete legal health record.[facility]
--- OUTSIDE RECORDS SUMMARY | 2025-04-06 11:25 | XMS_ITS | Encounter Summary ---
Author Organization [facility] Address [address] [facility] [address] [place] [address] Phone Care Team Providers Care Manager Mail Name Role Phone David Seymour DO Unavailable Caro Sandoval HAZARDOUS MATERIAL SPECIALIST Unavailable [phone] Mikey Leong MD Unavailable Renee Mercedes MD Unavailable Aidee Valladares HAZARDOUS MATERIAL SPECIALIST Unavailable Arnaldo Dillon MD Unavailable Anahi Persaud [facility] Unavailable [email or web address] Ana Cristina Parmar MD Unavailable [phone] Philip Stewart MD Unavailable [phone] David Seymour DO Primary Care Provider [phone] Reason for Referral * MRI/CAT Scan - Closed Specialty Diagnoses / Procedures Referred By Contac t Referred To Contact Radiology Diagnoses Abnormal electrocardiogram (ECG) (EKG) Procedures NC Myocardial Perfusion Pharmacologic Stress Multiple Joana Bradshaw PA Phone: tel: fax: Referral ID Status Reason Start Date Expiration Date Visits Re quested Visits Authorized [id number] Closed 01/11/2020 07/09/2020 1 1 Encounter Details Date Type Department Care Team (Latest Contact Info) Description 01/09/2020 Transcribe Orders Virtual Department 30 [place] [address] Joana Bradshaw PA [address] [place] [address] [place] [address] Abnormal electrocardiogram (ECG) (EKG) (Primary Dx) Social [...] 2:00 PM EST Office Visit [facility] Plastic Surgery [address] [place] [address] Douglas Reyes MD [address] [place] [address] [email or web address] documented as of [...] sestamibi at rest and 31.5 mCi of [id number] subsequently in the day during treadmill stress [...] (EKG) documented in this encounter Care Teams Manager Mail Relationship Specialty Start Date End Date David Seymour DO [email or web address] PCP - General Internal Medicine 04/06/17 David Seymour DO [email or web address] Historical LMR Provider 03/13/17 Caro Sandoval NP [address] [place] [address] [email or web address] Historical LMR Provider 03/13/17 Mikey Leong MD [address] [place] [address] [email or web address] Historical LMR Provider 03/13/17 05/31/21 Renee Mercedes MD [address] [place] [address], [address] [place] [address] Historical LMR Provider 03/13/17 Aidee Valladares NP [address] [place] [address] [email or web address] Historical LMR Provider 03/13/17 2 Arnaldo Dillon MD [address] [place] [address], [address] [place] [address] Historical LMR Provider 03/13/17 05/31/21 Anahi Persaud, RDCS Historical LMR Provider 03/13/17 05/31/21 Ana Cristina Parmar MD [address], [place] [address] Historical LMR Provider 03/13/17 2 Philip Stewart MD [address] [place] [address] Historical LMR Provider 03/13/17 2 documented as of this encounter Additional Source Comments The information contained in this document represents components of the legal health record. It is not the complete legal health record.[facility]
--- OUTSIDE RECORDS SUMMARY | 2025-04-06 11:25 | XMS_ITS | Encounter Summary ---
Author Organization [facility] Address [address] [employer] [employer] [address] [place] [address] Phone Care Team Providers Care Jd Edwards Consultant Name Role Phone David Seymour DO Unavailable Caro Sandoval VICE CHAIR Unavailable [phone] Renee Mercedes MD Unavailable [phone] David Seymour DO Primary Care Provider [phone] Encounter Details Date Type Department Care Team (Latest Contact Info) Description 09/12/2021 Transcribe Orders Virtual Department 30 [place] [address] Joana Bradshaw PA [address] [place] [address] [place] [address] Osteopenia, unspecified location Social History Tobacco Use [...] Description 04/30/2025 2:00 PM EST Office Visit [facility] Plastic Surgery [address] [place] [address] Douglas Reyes MD [address] [place] [address] documented as of this encounter Visit Diagnoses Diagnosis Osteopenia, unspecified location documented in this encounter Care Teams Jd Edwards Consultant Relationship Specialty Start Date End Date David Seymour DO PCP - General Internal Medicine 04/06/17 David Seymour DO Historical LMR Provider 03/13/17 Caro Sandoval NP 30 [place] [address] Historical LMR Provider 03/13/17 Renee Mercedes MD [address] [place] [address] Historical LMR Provider 03/13/17 documented as of this encounter Additional Source Comments The information contained in this document represents components of the legal health record. It is not the complete legal health record.[facility]
--- OUTSIDE RECORDS SUMMARY | 2025-04-06 11:25 | XMS_ITS | Encounter Summary ---
Author Organization [facility] Address [address] [facility] [address] [place] [address] Phone Care Team Providers Care Honey Blender Name Role Phone David Seymour DO Unavailable Caro Sandoval PERFECT BIND MACHINE OPERATOR Unavailable [phone] Mikey Leong MD Unavailable [phone] Renee Mercedes MD Unavailable [phone] Aidee Valladares PERFECT BIND MACHINE OPERATOR Unavailable Arnaldo Dillon MD Unavailable Anahi Persaud RD Unavailable [email or web address] Ana Cristina Parmar MD Unavailable + [phone] Philip Stewart MD Unavailable [phone] David Seymour DO Primary Care Provider [phone] Encounter Details Date Type Department Care Team (Latest Contact Info) Description 01/15/2020 Ancillary Orders Non-Invasive Cardiology 30 [place] [address] Joana Bradshaw PA 6 [facility] [address] [place], [place] [id number] Abnormal electrocardiogram (ECG) (EKG) Social History Tobacco [...] 04/30/2025 2:00 PM EST Office Visit [facility] Plastic Surgery [address] [place] [address] Douglas Reyes MD [address] [place] [address], [address] [address] [email or web address] documented as of this encounter Results * NC Stress Result for Nuclear Stress Test (01/15/2020 11:43 AM EDT) Max BP Systolic 178 mmHg [facility] Max BP Diastolic 64 mmHg [facility] Max HR 173 BPM [facility] Resting HR 55 BPM [facility] Resting BP Systolic 122 mmHg [facility] Resting BP Diastolic 72 mmHg [facility] Peak METS 17.2 METS [facility] Peak HR 157 BPM [facility] Anatomical Region Laterality Modality Heart Other 01/15/2020 [...] (EKG) documented in this encounter Care Teams Honey Blender Relationship Specialty Start Date End Date David Seymour DO PCP - General Internal Medicine 04/06/17 David Seymour DO Historical LMR Provider 03/13/17 Caro Sandoval PERFECT BIND MACHINE OPERATOR [address] [place] [address] [email or web address] Historical LMR Provider 03/13/17 Mikey Leong MD [address] [place] [address] [email or web address] Historical LMR Provider 03/13/17 05/31/21 Renee Mercedes MD [address] [place] [address] Historical LMR Provider 03/13/17 Aidee Valladares PERFECT BIND MACHINE OPERATOR [address] [place] [address] [email or web address] Historical LMR Provider 03/13/17 2 Arnaldo Dillon MD 22 [facility], [address] [place] [address] [email or web address] Historical LMR Provider 03/13/17 05/31/21 Anahi Persaud, RDCS [email or web address] Historical LMR Provider 03/13/17 05/31/21 Ana Cristina Parmar MD [address], [place] [address] Historical LMR Provider 03/13/17 2 Philip Stewart MD 61 [place] [address] Historical LMR Provider 03/13/17 2 documented as of this encounter Additional Source Comments The information contained in this document represents components of the legal health record. It is not the complete legal health record.[facility]
== END ==
LOC: HO.CARD 09:54
PROVIDERS: PCP Internal Medicine; Visit Provider Physician Assistant
DX: R07.89 Other chest pain (principal)
CPT/HCPCS: 93270; 93306

== ENCOUNTER → 2025-04-06 10:01 | Outpatient (BNV) | payer MEDICARE, OTHER, SELFPAY | PROVIDERS: PCP Internal Medicine; Visit Provider Internal Medicine Cardiovascular Disease | DX: R07.9 Chest pain, unspecified (principal) | CPT/HCPCS: 93306 ==

== ENCOUNTER → 2025-05-04 09:35 | Outpatient (REF) | payer MEDICARE, OTHER, SELFPAY ==
--- NOTE | 2025-05-04 10:00 | CA_ITS ---
Acquisition Time: 2025-05-04 10:07:47 Total Exercise Time: 00:09:59 Test Indications: CP, PALPITATIONS Medications: SEE H&P Protocol: ROXY Max HR: 134 BPM 87% of Pred: 153 BPM Max BP: 150/68 mmHG Max Work Load: 11.7 METS Exercise stress test with exercise 9 mins 59 secs of Roxy Protocol, achieving 87% MPHR, without any reports of SOB or CP, with frequent PACs and PVCs, rare couplets, with normotensive response to exercise. With ST depression inferiorly meeting criteria for ischemia. In recovery, pt continued to feel well. Recommend stress test with nuclear images for further eval. ST segment improved. Test reviewed with Dr. Reyes. Referred By: Joana Bradshaw Electronically Signed By: Judah Nelson
== END ==
LOC: HO.CARD 09:35
PROVIDERS: PCP Internal Medicine; Visit Provider Physician Assistant
DX: R07.89 Other chest pain (principal); R00.2 Palpitations
CPT/HCPCS: 93017

== ENCOUNTER → 2025-05-04 10:00 | Outpatient (BNV) | payer MEDICARE, OTHER, SELFPAY | PROVIDERS: PCP Internal Medicine | DX: I49.1 Atrial premature depolarization (principal); I49.3 Ventricular premature depolarization | CPT/HCPCS: 93016; 93018 ==